=== PATIENT | female | born 1950 | race Two or more races ===

== ENCOUNTER → 2020-07-04 11:18 | Outpatient (BNVA) | payer MEDICARE, SELFPAY | PROVIDERS: PCP Internal Medicine; Referring Provider Internal Medicine; Visit Provider Nurse Practitioner Gerontology | DX: E11.3299 Type 2 diabetes mellitus with mild nonproliferative diabetic retinopathy without macular edema, unspecified eye (principal); E11.42 Type 2 diabetes mellitus with diabetic polyneuropathy; Z79.4 Long term (current) use of insulin; E78.5 Hyperlipidemia, unspecified | CPT/HCPCS: 99212 ==

== ENCOUNTER 2020-07-20 11:35 | Outpatient (REF) | payer MEDICARE, SELFPAY ==
--- NOTE | 2020-07-20 | US_ITS ---
EXAMINATION: US RETROPERITONEAL LIMITED (RENAL ONLY) CLINICAL INFORMATION: Hypertension. Hyperkalemia. COMPARISON: Renal ultrasound 04/06/2016 and 09/28/2015. KUB 09/14/2015 and 11/16/2013. CT abdomen and pelvis 07/06/2015. TECHNIQUE: Real-time imaging of the kidneys. FINDINGS: RIGHT KIDNEY: 9.7 x 4.8 x 4.3 cm (SAG x AP x TRV). The kidney is normal in size, contour, and echogenicity. Renal cortical thickness is normal. No calculi or focal parenchymal lesions. No hydronephrosis. LEFT KIDNEY: 10.2 x 4.6 x 3.8 cm (SAG x AP x TRV). The kidney is normal in size, contour, and echogenicity. Renal cortical thickness is normal. No calculi or focal parenchymal lesions. No hydronephrosis. US/US renal BI IMPRESSION: No significant renal abnormality.
== END 2020-07-20 11:36 | disposition home or self-care (01) ==
LOC: HO.US 11:35
PROVIDERS: Visit Provider Internal Medicine Nephrology
DX: E87.5 Hyperkalemia (principal); E11.65 Type 2 diabetes mellitus with hyperglycemia; E11.39 Type 2 diabetes mellitus with other diabetic ophthalmic complication; E78.5 Hyperlipidemia, unspecified; I10 Essential (primary) hypertension
CPT/HCPCS: 76775

== ENCOUNTER 2020-08-03 09:51 | Outpatient (REF) | payer MEDICARE, SELFPAY ==
[2020-08-03 11:53] LABS: Alanine Aminotransferase 19 U/L (0-31); Albumin Level 3.8 g/dL (3.5-5.0); Alkaline Phosphatase 63 U/L (39-117); Anion Gap 16 (12-20); Aspartate Amino Transferase 18 U/L (5-31); Bilirubin Total 0.4 mg/dL (0.0-1.0); Blood Urea Nitrogen 18 mg/dL (9-16); Calcium 9.1 mg/dL (8.4-10.2); Carbon Dioxide 24 mmol/L (22-29); Chloride 105 mmol/L (96-108); Cholesterol 184 mg/dL; Estimated Glomerular Filt Rate 60; Glucose Random 150 mg/dL (60-115); HDL Cholesterol 38 mg/dL; LDL Cholesterol Calculated 96 mg/dl; Potassium 4.9 mmol/l (3.3-5.1); Sodium 140 mmol/L (135-145); Total Protein 6.8 g/dL (6.5-8.0); Triglycerides 253 mg/dL
[2020-08-03 11:54] LABS: Estimated Average Glucose 169 mg/dL; Hemoglobin A1c % 7.5 %
[2020-08-03 12:17] LABS: Free T4 (Free Thyroxine) 0.98 ng/dL (0.71-1.85); Thyroid Stimulating Hormone 0.74 uIU/mL (0.32-4.0)
== END 2020-08-03 09:52 | disposition home or self-care (01) ==
LOC: HO.LAB 09:51
PROVIDERS: Nurse Practitioner Gerontology; PCP Internal Medicine; Visit Provider Internal Medicine
DX: E78.00 Pure hypercholesterolemia, unspecified (principal); E11.3299 Type 2 diabetes mellitus with mild nonproliferative diabetic retinopathy without macular edema, unspecified eye; E11.42 Type 2 diabetes mellitus with diabetic polyneuropathy; E78.5 Hyperlipidemia, unspecified; E03.9 Hypothyroidism, unspecified
CPT/HCPCS: 80053; 80061; 83036; 84439; 84443

== ENCOUNTER → 2020-10-04 09:43 | Outpatient (BNVA) | payer MEDICARE, SELFPAY | PROVIDERS: PCP Internal Medicine; Visit Provider Nurse Practitioner Gerontology | DX: E11.3299 Type 2 diabetes mellitus with mild nonproliferative diabetic retinopathy without macular edema, unspecified eye (principal); E11.42 Type 2 diabetes mellitus with diabetic polyneuropathy; E78.5 Hyperlipidemia, unspecified; Z79.4 Long term (current) use of insulin | CPT/HCPCS: Q3014 ==

== ENCOUNTER → 2020-11-09 12:36 | Outpatient (BNVA) | payer MEDICARE, SELFPAY | PROVIDERS: PCP Internal Medicine; Visit Provider Nurse Practitioner Gerontology | DX: Z13.89 Encounter for screening for other disorder (principal) | CPT/HCPCS: Q3014 ==

== ENCOUNTER → 2020-12-29 12:10 | Outpatient (BNVA) | payer MEDICARE, SELFPAY | PROVIDERS: PCP Internal Medicine; Visit Provider Nurse Practitioner Gerontology | DX: E11.65 Type 2 diabetes mellitus with hyperglycemia (principal); E11.42 Type 2 diabetes mellitus with diabetic polyneuropathy; Z79.4 Long term (current) use of insulin; E78.5 Hyperlipidemia, unspecified | CPT/HCPCS: 82947; 99212 ==

== ENCOUNTER → 2021-01-16 12:27 | Outpatient (BNVA) | payer MEDICARE, SELFPAY | PROVIDERS: PCP Internal Medicine; Visit Provider Nurse Practitioner Gerontology | DX: E11.65 Type 2 diabetes mellitus with hyperglycemia (principal); E11.42 Type 2 diabetes mellitus with diabetic polyneuropathy; Z79.4 Long term (current) use of insulin; E78.5 Hyperlipidemia, unspecified; E04.9 Nontoxic goiter, unspecified | CPT/HCPCS: 82947; 99212 ==

== ENCOUNTER 2021-02-10 08:03 | Outpatient (REF) | payer MEDICARE, SELFPAY ==
[2021-02-10 09:40] LABS: Free T4 (Free Thyroxine) 0.94 ng/dL (0.71-1.85); Thyroid Stimulating Hormone 0.92 uIU/mL (0.32-4.0)
[2021-02-13 17:56] LABS: Thyroglobulin Antibodies <1 IU/mL (< or = 1); Thyroid Peroxidase Antibodies <1 IU/mL (<9)
== END 2021-02-10 08:04 | disposition home or self-care (01) ==
LOC: HO.LAB 08:03
PROVIDERS: PCP Internal Medicine; Visit Provider Nurse Practitioner Gerontology
DX: E04.9 Nontoxic goiter, unspecified (principal)
CPT/HCPCS: 36415; 84439; 84443; 86376; 86800

== ENCOUNTER 2021-02-27 11:56 | Outpatient (REF) | payer MEDICARE, SELFPAY ==
--- NOTE | ~2021-02-27 | US_ITS ---
EXAMINATION: US THYROID CLINICAL INFORMATION: Goiter COMPARISON: None TECHNIQUE: Linear transducer grayscale and color Doppler examination with attention to the region of the thyroid. FINDINGS: SIZE: Measurements of the thyroid lobes and nodules are given in sagittal, anteroposterior and transverse dimensions respectively. Right Thyroid Lobe: 2.7 x 1.0 x 1.0 cm, volume 1.4 mL. Parenchyma: The gland echotexture is homogeneous. Thyroid vascularity is normal. Left Thyroid Lobe: 3.1 x 0.9 x 0.8 cm, volume 1.2 mL. Parenchyma: The gland echotexture is homogeneous. Thyroid vascularity is normal. Isthmus: 0.1 cm in maximum AP dimension. Estimated total number of nodules greater than or equal to 1 cm: 0. Body Joiner nodules are described as follows: 1. Location: Right mid pole. Size: 0.3 x 0.2 x 0.3 cm, volume 0.008 mL. Nodule characteristics: Composition: Cystic(0). ACR TI-RADS total points: 0 ACR TI-RADS category: 1 2. Location: Left mid pole. Size: 0.3 x 0.2 x 0.3 cm, volume 0.009 mL. Nodule characteristics: Composition: Cystic(0). ACR TI-RADS total points: 0 ACR TI-RADS category: 1 NODES: There are small bilateral level 3 cervical lymph nodes US/US thyroid IMPRESSION: Small thyroid gland. Small bilateral cystic thyroid nodules. Small bilateral level 3 cervical lymph nodes. ACR TI-RADS RECOMMENDATION REFERENCE: Ultrasound-guided fine-needle aspiration, followup ultrasound, no further follow up. * TR1 (0 point) and TR 2 (2 points): No FNA or follow up * TR3 (3 points): FNA if more than or equal to 2.5 cm in maximum dimension, followup ultrasound in 1, 3 and 5 years if 1.5 to 2.4 cm in maximum dimension. * TR4 (4-6 points): FNA if more than or equal to 1.5 cm in maximum dimension, followup ultrasound in 1, 2, 3 and 5 years if 1 to 1.4 cm in maximum dimension. * TR5 (more than or equal to 7 points): FNA if more than or equal to 1 cm in maximum dimension, followup ultrasound every year for 5 years if 0.5 to 0.9 cm in maximum dimension. * TR3, TR4 or TR5 nodules that are below the size threshold for follow up receive no follow up.
== END 2021-02-27 11:57 | disposition home or self-care (01) ==
LOC: HO.US 11:56
PROVIDERS: Visit Provider Nurse Practitioner Gerontology
DX: E04.9 Nontoxic goiter, unspecified (principal)
CPT/HCPCS: 76536

== ENCOUNTER 2021-03-10 13:23 | Outpatient (REF) | payer MEDICARE, SELFPAY ==
--- NOTE | ~2021-03-10 | MM_ITS ---
EXAMINATION: MM SCREENING DIGITAL BREAST TOMOSYNTHESIS, BILATERAL CLINICAL INFORMATION: Screening. Asymptomatic. Remote history breast reduction 1982. The lifetime risk of breast cancer based on the Tyrer-Cuzick Model is 3%. COMPARISON: Mammography: 12/13/2017, 12/04/2016, 11/01/2015 TECHNIQUE: Digital breast tomosynthesis is performed in both the craniocaudal and mediolateral oblique views along with computer-aided detection (CAD). Synthesized 2D images are generated from the tomosynthesis. Additional left CC view is provided. FINDINGS: There are scattered areas of fibroglandular density (ACR BI-RADS breast composition Category b). Parenchymal pattern is similar to prior studies. There is minor chronic scarring and numerous round and rim calcifications consistent with the remote reduction mammoplasty. There is no interval mass or architectural abnormality or abnormal calcifications. The axilla are unremarkable. MM/MM tomosynthesis screening BI IMPRESSION: No mammographic evidence of malignancy. ASSESSMENT: BI-RADS 2: Benign RECOMMENDATION: Routine annual mammography screening. This patient's information was entered into a reminder system with a target due date for their next mammogram.
== END 2021-03-10 13:24 | disposition home or self-care (01) ==
LOC: HO.MAMMO 13:23
PROVIDERS: Visit Provider Internal Medicine
DX: Z12.31 Encounter for screening mammogram for malignant neoplasm of breast (principal)
CPT/HCPCS: 77063; 77067

== ENCOUNTER → 2021-03-27 12:19 | Outpatient (BNVA) | payer MEDICARE, SELFPAY | PROVIDERS: PCP Internal Medicine; Visit Provider Nurse Practitioner Gerontology | DX: E11.65 Type 2 diabetes mellitus with hyperglycemia (principal); E11.42 Type 2 diabetes mellitus with diabetic polyneuropathy; R63.5 Abnormal weight gain; E78.5 Hyperlipidemia, unspecified; E03.9 Hypothyroidism, unspecified; E04.2 Nontoxic multinodular goiter; E53.8 Deficiency of other specified B group vitamins; Z88.6 Allergy status to analgesic agent; Z88.8 Allergy status to other drugs, medicaments and biological substances; Z79.4 Long term (current) use of insulin; Z79.899 Other long term (current) drug therapy | CPT/HCPCS: 82947; 83036; 99212 ==

== ENCOUNTER 2021-05-18 13:58 | Outpatient (REF) | payer MEDICARE, SELFPAY ==
[2021-05-18 14:49] LABS: Cholesterol 195 mg/dL; Estimated Average Glucose 151 mg/dL; Glucose Fasting 90 mg/dL (60-99); HDL Cholesterol 44 mg/dL; Hemoglobin A1c % 6.9 %; LDL Cholesterol Calculated 90 mg/dl; Triglycerides 308 mg/dL
== END 2021-05-18 13:59 | disposition home or self-care (01) ==
LOC: HO.LAB 13:58
PROVIDERS: PCP Internal Medicine; Visit Provider Nurse Practitioner Family
DX: E11.65 Type 2 diabetes mellitus with hyperglycemia (principal); E78.5 Hyperlipidemia, unspecified
CPT/HCPCS: 36415; 80061; 82947; 83036

== ENCOUNTER 2021-07-07 14:25 | Outpatient (REF) | payer MEDICARE, SELFPAY ==
--- NOTE | ~2021-07-07 | MM_ITS ---
EXAMINATION: BONE DENSITOMETRY CLINICAL INDICATION: Screening for osteoporosis. COMPARISON: Baseline BD dated 11/01/2015. TECHNIQUE: Using a [employer] DXA System (software version: 13.1) manufactured by [employer], dual-energy x-ray absorptiometry was performed of the lumbar spine and left hip. The images are of good technical quality. Summary results are attached. FINDINGS: AP SPINE L1-L4: Current: BMD 1.175 g/cm2, Z-score 1.9, T-score 0.0, normal, 3.8% increase from baseline (<5% change is not significant). Baseline: BMD 1.132 g/cm2. LEFT FEMUR, NECK: Current: BMD 1.025 g/cm2, Z-score 1.7, T-score -0.1, normal. Baseline: BMD 0.985 g/cm2. LEFT FEMUR, TOTAL: Current: BMD 1.043 g/cm2, Z-score 1.9, T-score 0.3, normal, 1.8% decrease from baseline (<5% change is not significant). Baseline: BMD 1.062 g/cm2. IDENTIFIED RISK FACTORS: Early menopause, hyperthyroid, hysterectomy, rheumatoid arthritis, secondary osteoporosis. HISTORY OF FRACTURE: None listed. MEDICATIONS: Calcium. MM/XR DEXA axial skeleton IMPRESSION: 1. DIAGNOSIS: Normal bone density based on the lowest T-score value of -0.1 in the femoral neck applying World Health Organization criteria. 2. 10-YEAR FRACTURE RISK PREDICTION, FRAX: According to the guidelines, FRAX calculation should only be performed on patients in the osteopenia bone density category. Therefore, FRAX was not performed on this patient. 3. Treatment Recommendations: NOF guidelines recommend consideration for treatment in postmenopausal women and men age 50 and older presenting with the following: -A hip or vertebral (clinical or morphometric) fracture. -T-score less than or equal to -2.5 at the femoral neck or spine after appropriate evaluation to exclude secondary causes. -Low bone mass at the hip or spine and a 10-year fracture probability by FRAX of greater than or equal to 3% for hip fracture or greater than or equal to 20% for major osteoporotic fracture based on the [place] adapted WHO algorithm. 4. Other Recommendations: All treatment decisions require clinical judgment and consideration of individual patient factors, including patient preferences, comorbidities, previous drug use, risk factors not captured in the FRAX model (e.g. frailty, falls, vitamin D deficiency, increased bone turnover, interval significant decline in bone density) and possible under or overestimation of fracture risk by FRAX. FUTURE SCAN RECOMMENDATION: People with diagnosed cases of osteoporosis or at high risk for fracture should have regular bone mineral density tests. For patients eligible for Medicare, routine testing is allowed once every 2 years. The testing frequency can be increased to one year for patients who have rapidly progressing disease, those who are receiving or discontinuing medical therapy to restore bone mass, or have additional risk factors.
== END 2021-07-07 14:26 | disposition home or self-care (01) ==
LOC: HO.MAMMO 14:25
PROVIDERS: PCP Internal Medicine; Visit Provider Nurse Practitioner Family
DX: Z13.820 Encounter for screening for osteoporosis (principal); Z78.0 Asymptomatic menopausal state
CPT/HCPCS: 77080

== ENCOUNTER → 2021-08-14 12:16 | Outpatient (BNVA) | payer MEDICARE, SELFPAY | PROVIDERS: PCP Internal Medicine; Visit Provider Nurse Practitioner Gerontology | DX: E11.42 Type 2 diabetes mellitus with diabetic polyneuropathy (principal); E78.5 Hyperlipidemia, unspecified; E04.2 Nontoxic multinodular goiter; Z79.4 Long term (current) use of insulin | CPT/HCPCS: 82947; 83036; 99212 ==

== ENCOUNTER 2021-10-23 08:48 | Outpatient (REF) | payer MEDICARE, SELFPAY ==
[2021-10-23 09:27] LABS: MANUAL DIFF FLAG NO
[2021-10-23 09:52] LABS: Basophils Absolute Auto 0.1 X10*3/uL (0.0-0.2); Basophils Percent Auto 0.6 % (0-2); Eosinophils Absolute Auto 0.3 X10*3/uL (0.0-0.4); Eosinophils Percent Auto 3.2 % (0-4); Hematocrit 42.1 % (37.0-47.0); Hemoglobin 13.8 g/dl (12.0-16.0); Imm Gran Abs Auto 0.05 X10*3/uL (0.00-0.03); Imm Gran Pct Auto 0.5 % (0.0-0.4); Lymphocytes Absolute Auto 2.3 X10*3/uL (1.2-4.9); Lymphocytes Percent Auto 22.4 % (20-40); Mean Corpuscular HGB Conc 32.8 g/dl (31.0-35.0); Mean Corpuscular Hemoglobin 26.6 pg (27.0-33.0); Mean Corpuscular Volume 81.1 fL (80.0-98.0); Mean Platelet Volume 9.3 fL (9.4-12.3); Monocytes Absolute Auto 0.6 X10*3/uL (0.1-1.2); Monocytes Percent Auto 6.2 % (2-11); Neutrophils Absolute Auto 6.9 x10*3/uL (2.0-8.3); Neutrophils Percent Auto 67.1 % (45-73); Platelet Count 388 X10*3/uL (160-400); Red Blood Count 5.19 X10*6/uL (4.20-5.50); Red Cell Distribution Width 14.8 % (11.0-16.0); White Blood Count 10.3 X10*3/uL (4.8-10.8)
[2021-10-23 10:04] LABS: Estimated Average Glucose 143 mg/dL; Hemoglobin A1c % 6.6 %
[2021-10-23 10:14] LABS: Alanine Aminotransferase 28 U/L (0-31); Albumin Level 4.4 g/dL (3.5-5.0); Alkaline Phosphatase 75 U/L (39-117); Anion Gap 16 (12-20); Aspartate Amino Transferase 38 U/L (5-31); Bilirubin Total 0.3 mg/dL (0.0-1.0); Blood Urea Nitrogen 11 mg/dL (9-16); Calcium 10.2 mg/dL (8.4-10.2); Carbon Dioxide 25 mmol/L (22-29); Chloride 104 mmol/L (96-108); Cholesterol 209 mg/dL; Estimated Glomerular Filt Rate 55; Glucose Fasting 92 mg/dL (60-99); HDL Cholesterol 46 mg/dL; LDL Cholesterol Calculated 122 mg/dl; Potassium 4.7 mmol/L (3.3-5.1); Sodium 140 mmol/L (135-145); Total Protein 8.1 g/dL (6.5-8.0); Triglycerides 206 mg/dL
[2021-10-23 10:18] LABS: Anion Gap 13 (12-20); Blood Urea Nitrogen 11 mg/dL (9-16); Calcium 10.3 mg/dL (8.4-10.2); Carbon Dioxide 27 mmol/L (22-29); Chloride 104 mmol/L (96-108); Estimated Glomerular Filt Rate 57; Iron 54 mcg/dL (30-160); Potassium 5.2 mmol/L (3.3-5.1); Sodium 139 mmol/L (135-145)
[2021-10-23 10:34] LABS: Percent Iron Saturation 17 % (15-50); Total Iron Binding Capacity 322 mcg/dL (228-428); Unsaturated Iron Binding 268 ug/dL
[2021-10-23 11:08] LABS: Creatinine Urine 123.59 mg/dL; Microalbum/Creatinine Ratio Ur 12.1 ug/mg cr
[2021-10-24 08:06] LABS: LDL Cholesterol Direct 139 mg/dL (<100)
== END 2021-10-23 08:49 | disposition home or self-care (01) ==
LOC: HO.LAB 08:48
PROVIDERS: Absent Provider Nurse Practitioner Gerontology; PCP Internal Medicine; Visit Provider Internal Medicine Nephrology
DX: E11.42 Type 2 diabetes mellitus with diabetic polyneuropathy (principal); E87.5 Hyperkalemia; Z79.4 Long term (current) use of insulin
CPT/HCPCS: 36415; 80051; 80053; 80061; 82043; 82310; 82565; 83036; 83540; 83721; 84520; 85025

== ENCOUNTER → 2021-11-10 11:49 | Outpatient (BNVA) | payer MEDICARE, SELFPAY | PROVIDERS: PCP Internal Medicine; Visit Provider Registered Nurse Diabetes Educator | DX: E11.42 Type 2 diabetes mellitus with diabetic polyneuropathy (principal); Z45.89 Encounter for adjustment and management of other implanted devices | CPT/HCPCS: 95250 ==

== ENCOUNTER 2021-11-17 08:56 | Outpatient (REF) | payer MEDICARE, SELFPAY ==
[2021-11-17 10:04] LABS: Estimated Average Glucose 140 mg/dL; Hemoglobin A1c % 6.5 %
[2021-11-17 10:59] LABS: Alanine Aminotransferase 22 U/L (0-31); Albumin Level 4.3 g/dL (3.5-5.0); Alkaline Phosphatase 71 U/L (39-117); Anion Gap 16 (12-20); Aspartate Amino Transferase 29 U/L (5-31); Bilirubin Total 0.4 mg/dL (0.0-1.0); Blood Urea Nitrogen 15 mg/dL (9-16); Calcium 10.3 mg/dL (8.4-10.2); Carbon Dioxide 22 mmol/L (22-29); Chloride 106 mmol/L (96-108); Cholesterol 208 mg/dL; Estimated Glomerular Filt Rate 53; Glucose Fasting 118 mg/dL (60-99); HDL Cholesterol 45 mg/dL; LDL Cholesterol Calculated 123 mg/dl; Potassium 5.4 mmol/L (3.3-5.1); Sodium 139 mmol/L (135-145); Total Protein 7.8 g/dL (6.5-8.0); Triglycerides 203 mg/dL
[2021-11-17 14:43] LABS: Creatinine Urine 109.45 mg/dL; Microalbum/Creatinine Ratio Ur 8.2 ug/mg cr
[2021-11-18 19:16] LABS: LDL Cholesterol Direct 139 mg/dL (<100)
== END 2021-11-17 08:57 | disposition home or self-care (01) ==
LOC: HO.LAB 08:56
PROVIDERS: PCP Internal Medicine; Visit Provider Nurse Practitioner Gerontology
DX: E11.42 Type 2 diabetes mellitus with diabetic polyneuropathy (principal); Z79.4 Long term (current) use of insulin
CPT/HCPCS: 36415; 80053; 80061; 82043; 83036; 83721

== ENCOUNTER → 2021-11-24 12:20 | Outpatient (BNVA) | payer MEDICARE, SELFPAY | PROVIDERS: PCP Internal Medicine; Visit Provider Nurse Practitioner Gerontology | DX: E11.42 Type 2 diabetes mellitus with diabetic polyneuropathy (principal); E11.649 Type 2 diabetes mellitus with hypoglycemia without coma; E78.5 Hyperlipidemia, unspecified; Z79.4 Long term (current) use of insulin | CPT/HCPCS: 82947; 83036; 99212 ==

== ENCOUNTER → 2022-02-27 12:50 | Outpatient (BNVA) | payer MEDICARE, SELFPAY | PROVIDERS: PCP Internal Medicine; Visit Provider Nurse Practitioner Gerontology | DX: E11.65 Type 2 diabetes mellitus with hyperglycemia (principal); E11.649 Type 2 diabetes mellitus with hypoglycemia without coma; E11.42 Type 2 diabetes mellitus with diabetic polyneuropathy; E78.5 Hyperlipidemia, unspecified; Z79.4 Long term (current) use of insulin; Z79.899 Other long term (current) drug therapy | CPT/HCPCS: 82947; 83036; 99212 ==

== ENCOUNTER 2022-05-22 09:26 | Outpatient (REF) | payer OTHER, SELFPAY ==
[2022-05-22 10:43] LABS: Alanine Aminotransferase 18 U/L (0-31); Albumin Level 4.3 g/dL (3.5-5.0); Alkaline Phosphatase 78 U/L (39-117); Anion Gap 19 (12-20); Aspartate Amino Transferase 23 U/L (5-31); Bilirubin Total 0.4 mg/dL (0.0-1.0); Blood Urea Nitrogen 16 mg/dL (9-16); Calcium 9.8 mg/dL (8.4-10.2); Carbon Dioxide 20 mmol/L (22-29); Chloride 104 mmol/L (96-108); Estimated Glomerular Filt Rate 55; Glucose Random 101 mg/dL (60-115); Sodium 138 mmol/L (135-145); Total Protein 7.7 g/dL (6.5-8.0)
[2022-05-23 11:46] LABS: Calcium (PTHI) 9.7 mg/dL (8.6-10.4); PTHI 68 pg/mL (16-77)
[2022-05-24 14:11] LABS: Calcium, Ionized 5.1 mg/dL (4.8-5.6)
== END 2022-05-22 09:27 | disposition home or self-care (01) ==
LOC: HO.LAB 09:26
PROVIDERS: PCP Internal Medicine; Visit Provider Internal Medicine
DX: E11.65 Type 2 diabetes mellitus with hyperglycemia (principal)
CPT/HCPCS: 36415; 80053; 82330; 83970

== ENCOUNTER → 2022-05-23 14:11 | Outpatient (BNVA) | payer OTHER, SELFPAY | PROVIDERS: PCP Internal Medicine; Visit Provider Internal Medicine Endocrinology, Diabetes & Metabolism | DX: E11.65 Type 2 diabetes mellitus with hyperglycemia (principal); Z79.4 Long term (current) use of insulin | CPT/HCPCS: 82947; 83036; 99212 ==

== ENCOUNTER 2022-05-29 12:46 | Outpatient (REF) | payer OTHER, SELFPAY ==
[2022-05-29 13:06] LABS: MANUAL DIFF FLAG NO
[2022-05-29 13:38] LABS: Basophils Absolute Auto 0.1 X10*3/uL (0.0-0.2); Basophils Percent Auto 0.7 % (0-2); Eosinophils Absolute Auto 0.3 X10*3/uL (0.0-0.4); Eosinophils Percent Auto 2.2 % (0-4); Hematocrit 39.9 % (37.0-47.0); Imm Gran Abs Auto 0.03 X10*3/uL (0.00-0.03); Imm Gran Pct Auto 0.3 % (0.0-0.4); Lymphocytes Absolute Auto 3.3 X10*3/uL (1.2-4.9); Lymphocytes Percent Auto 28.1 % (20-40); Mean Corpuscular HGB Conc 32.6 g/dl (31.0-35.0); Mean Corpuscular Hemoglobin 25.6 pg (27.0-33.0); Mean Corpuscular Volume 78.5 fL (80.0-98.0); Mean Platelet Volume 9.4 fL (9.4-12.3); Monocytes Absolute Auto 0.8 X10*3/uL (0.1-1.2); Monocytes Percent Auto 7.1 % (2-11); Neutrophils Absolute Auto 7.3 x10*3/uL (2.0-8.3); Neutrophils Percent Auto 61.6 % (45-73); Platelet Count 421 X10*3/uL (160-400); Red Blood Count 5.08 X10*6/uL (4.20-5.50); Red Cell Distribution Width 16.1 % (11.0-16.0); White Blood Count 11.9 X10*3/uL (4.8-10.8)
[2022-05-29 14:14] LABS: Albumin Level 4.2 g/dL (3.5-5.0); Anion Gap 19 (12-20); Blood Urea Nitrogen 16 mg/dL (9-16); Calcium 10.2 mg/dL (8.4-10.2); Carbon Dioxide 23 mmol/L (22-29); Chloride 103 mmol/L (96-108); Estimated Glomerular Filt Rate 55; Magnesium 1.6 mg/dL (1.6-2.6); Phosphorus 3.7 mg/dL (2.7-4.5); Potassium 4.7 mmol/L (3.3-5.1); Sodium 140 mmol/L (135-145)
[2022-05-29 14:23] LABS: Vitamin D 25-OH Total 27.9 ng/mL (>30)
[2022-05-29 14:27] LABS: Appearance Urine Clear; Color Urine Yellow; Glucose Urine UA Negative (Negative); Leukocyte Esterase Urine Small (1+) (Negative); Nitrite Urine Negative (Negative); PH 5.5 (5.0-9.0); Specific Gravity - Urine 1.015 (1.005-1.025); UMIC TRIGGER UA YES; Urine Blood Trace (Negative); Urine Ketones Negative (Negative); Urine Protein Negative (Neg-Trace)
[2022-05-29 14:41] LABS: Bacteria Urine None Seen (None Seen); Hyaline Casts Urine 0-2 /LPF (0-2); RBC Urine 0-2 /HPF (0-2); Squamous Epithelial Cell Urine 0-2 /HPF (0-2); WBC Urine 0-5 /HPF (0-5)
[2022-05-29 15:33] LABS: Creatinine Urine 107.23 mg/dL; Microalbum/Creatinine Ratio Ur 8.3 ug/mg cr; Total Protein Urine Random < 7 mg/dL (<12)
[2022-05-30 12:41] LABS: Calcium (PTHI) 10.3 mg/dL (8.6-10.4); PTHI 37 pg/mL (16-77)
== END 2022-05-29 12:47 | disposition home or self-care (01) ==
LOC: HO.LAB 12:46
PROVIDERS: PCP Internal Medicine; Visit Provider Internal Medicine Nephrology
DX: N18.31 Chronic kidney disease, stage 3a (principal)
CPT/HCPCS: 36415; 80051; 81001; 82040; 82043; 82306; 82310; 82565; 83735; 83970; 84100; 84156; 84520; 85025; 87086

== ENCOUNTER 2022-10-05 08:51 | Outpatient (REF) | payer OTHER, SELFPAY ==
[2022-10-05 09:23] LABS: MANUAL DIFF FLAG NO
[2022-10-05 10:17] LABS: Basophils Absolute Auto 0.1 X10*3/uL (0.0-0.2); Basophils Percent Auto 0.9 % (0-2); Eosinophils Absolute Auto 0.2 X10*3/uL (0.0-0.4); Eosinophils Percent Auto 2.4 % (0-4); Hematocrit 38.8 % (37.0-47.0); Hemoglobin 13.1 g/dl (12.0-16.0); Imm Gran Abs Auto 0.03 X10*3/uL (0.00-0.03); Imm Gran Pct Auto 0.3 % (0.0-0.4); Lymphocytes Absolute Auto 2.4 X10*3/uL (1.2-4.9); Lymphocytes Percent Auto 26.1 % (20-40); Mean Corpuscular HGB Conc 33.8 g/dl (31.0-35.0); Mean Corpuscular Hemoglobin 26.7 pg (27.0-33.0); Monocytes Absolute Auto 0.7 X10*3/uL (0.1-1.2); Neutrophils Absolute Auto 5.9 x10*3/uL (2.0-8.3); Neutrophils Percent Auto 63.3 % (45-73); Platelet Count 462 X10*3/uL (160-400); Red Blood Count 4.91 X10*6/uL (4.20-5.50); Red Cell Distribution Width 15.7 % (11.0-16.0); White Blood Count 9.3 X10*3/uL (4.8-10.8)
[2022-10-05 11:32] LABS: Estimated Average Glucose 134 mg/dL; Hemoglobin A1C 151.7843 umol/L; Hemoglobin A1c % 6.3 %
[2022-10-05 11:32] LABS: Creatinine Urine 87.22 mg/dL
[2022-10-05 11:37] LABS: Alanine Aminotransferase 10 U/L (0-31); Albumin Level 4.1 g/dL (3.5-5.0); Alkaline Phosphatase 67 U/L (39-117); Anion Gap 17 (12-20); Aspartate Amino Transferase 16 U/L (5-31); Bilirubin Total 0.4 mg/dL (0.0-1.0); Blood Urea Nitrogen 14 mg/dL (9-16); Calcium 10.2 mg/dL (8.4-10.2); Carbon Dioxide 23 mmol/L (22-29); Chloride 106 mmol/L (96-108); Cholesterol 191 mg/dL; Estimated Glomerular Filt Rate 59; Glucose Random 99 mg/dL (60-115); HDL Cholesterol 40 mg/dL; LDL Cholesterol Calculated 123 mg/dl; Potassium 5.1 mmol/L (3.3-5.1); Sodium 141 mmol/L (135-145); Total Protein 7.4 g/dL (6.5-8.0); Triglycerides 142 mg/dL
[2022-10-05 12:07] LABS: Folate 17.1 ng/mL (> or = 4.0); Free T4 (Free Thyroxine) 1.36 ng/dL (0.71-1.85); Thyroid Stimulating Hormone 0.39 uIU/mL (0.32-4.0); Vitamin B12 651 pg/mL (200-900); Vitamin D 25-OH Total 20.8 ng/mL (>30)
== END 2022-10-05 08:52 | disposition home or self-care (01) ==
LOC: HO.LAB 08:51
PROVIDERS: PCP Internal Medicine; Visit Provider Internal Medicine
DX: E04.2 Nontoxic multinodular goiter (principal); E11.65 Type 2 diabetes mellitus with hyperglycemia; E11.42 Type 2 diabetes mellitus with diabetic polyneuropathy; E78.00 Pure hypercholesterolemia, unspecified; E78.5 Hyperlipidemia, unspecified; Z79.4 Long term (current) use of insulin
CPT/HCPCS: 36415; 80053; 80061; 82043; 82306; 82607; 82746; 83036; 84439; 84443; 85025

== ENCOUNTER 2022-12-28 08:59 | Outpatient (REF) | payer OTHER, SELFPAY ==
[2022-12-28 10:16] LABS: Estimated Average Glucose 128 mg/dL; Hemoglobin A1c % 6.1 %
[2022-12-28 10:45] LABS: Creatinine Urine 118.41 mg/dL
[2022-12-28 11:09] LABS: Alanine Aminotransferase 11 U/L (0-31); Albumin Level 4.5 g/dL (3.5-5.0); Alkaline Phosphatase 56 U/L (39-117); Anion Gap 17 (12-20); Aspartate Amino Transferase 16 U/L (5-31); Bilirubin Total 0.5 mg/dL (0.0-1.0); Blood Urea Nitrogen 14 mg/dL (9-16); Calcium 10.8 mg/dL (8.4-10.2); Carbon Dioxide 22 mmol/L (22-29); Chloride 106 mmol/L (96-108); Cholesterol 198 mg/dL; Estimated Glomerular Filt Rate 58; Glucose Random 86 mg/dL (60-115); HDL Cholesterol 45 mg/dL; LDL Cholesterol Calculated 126 mg/dl; Potassium 5.8 mmol/L (3.3-5.1); Sodium 139 mmol/L (135-145); Total Protein 7.7 g/dL (6.5-8.0); Triglycerides 139 mg/dL
[2022-12-28 11:31] LABS: Free T4 (Free Thyroxine) 1.37 ng/dL (0.71-1.85); Thyroid Stimulating Hormone 0.17 uIU/mL (0.32-4.0); Vitamin D 25-OH Total 62.9 ng/mL (>30)
== END 2022-12-28 09:00 | disposition home or self-care (01) ==
LOC: HO.LAB 08:59
PROVIDERS: PCP Internal Medicine; Visit Provider Internal Medicine
DX: E11.65 Type 2 diabetes mellitus with hyperglycemia (principal); E78.5 Hyperlipidemia, unspecified; E78.00 Pure hypercholesterolemia, unspecified; E11.42 Type 2 diabetes mellitus with diabetic polyneuropathy; Z79.4 Long term (current) use of insulin; E55.9 Vitamin D deficiency, unspecified
CPT/HCPCS: 36415; 80053; 80061; 82306; 83036; 84439; 84443

== ENCOUNTER 2023-03-06 08:56 | Outpatient (REF) | payer OTHER, SELFPAY ==
[2023-03-06 10:39] LABS: Alanine Aminotransferase 11 U/L (0-31); Alkaline Phosphatase 47 U/L (39-117); Anion Gap 18 (12-20); Aspartate Amino Transferase 15 U/L (5-31); Bilirubin Total 0.4 mg/dL (0.0-1.0); Blood Urea Nitrogen 18 mg/dL (9-16); Calcium 10.5 mg/dL (8.4-10.2); Carbon Dioxide 20 mmol/L (22-29); Chloride 107 mmol/L (96-108); Estimated Glomerular Filt Rate > 60; Glucose Random 84 mg/dL (60-115); Potassium 4.8 mmol/L (3.3-5.1); Sodium 140 mmol/L (135-145); Total Protein 7.3 g/dL (6.5-8.0)
[2023-03-06 10:54] LABS: Free T4 (Free Thyroxine) 1.12 ng/dL (0.71-1.85); Thyroid Stimulating Hormone 0.68 uIU/mL (0.32-4.0)
== END 2023-03-06 08:57 | disposition home or self-care (01) ==
LOC: HO.LAB 08:56
PROVIDERS: PCP Internal Medicine; Visit Provider Internal Medicine
DX: E03.9 Hypothyroidism, unspecified (principal)
CPT/HCPCS: 36415; 80053; 84439; 84443

== ENCOUNTER 2023-03-13 13:09 | Outpatient (AMB) | payer OTHER, SELFPAY ==
[2023-03-13 13:11] VITALS: BP 110/58; PULSE 72; O2SAT 99; BMI 17.1
--- NOTE | 2023-03-13 13:11 | MHC.PC.OV ---
Vital Signs 03/13/23 13:11 Height 5 ft 1.5 in Weight 92 lb BMI 17.1 BP 110/58 L Blood Pressure Location Lt brachial Position Sitting Pulse 72 Pulse Source Pulse Oximeter Pulse Oximetry (%) 99 Oxygen Delivery Method Room Air Intake Visit Reasons: weight loss, DM , Cholesterol Allergies atorvastatin [Lipitor] Allergy (Unknown, Verified 03/13/23 13:11) myalgia rosuvastatin [From Crestor] Allergy (Unknown, Verified 03/13/23 13:11) Myalgia acetaminophen [Tylenol] Adverse Reaction (Unknown, Verified 03/13/23 13:11) Anaphylaxis Tobacco use date assessed: 10/08/22 Fall risk assessment: No Falls in past year Last assessed Fall Risk: 03/13/23 Dental Screening Dental Screen Date: 03/13/23 Did you have a dental visit in the last 12 months?: Yes Did you have a dental problem in the last 6 months where you did not have access to dental care?: No Was dental information given to patient?: Patient has dentist HPI weight loss, DM , Cholesterol HPI Details 72-year-old female with diabetes mellitus controlled moderate depressive disorder asthma hypercholesterolemia hypothyroidism coming in for follow-up. Last seen in October 2022. Cologuard test is up-to-date refused mammogram patient is here for follow-up. Patient has lost a tremendous amount of weight , no apetitte, no n no v, no fevers, , no cough , no sob, , occ chest pain,,no diarrhea, no constipaiton- did not see for 5 months noted 20 lb weight loss PFSH Medical History Anxiety and depression Asthma B12 deficiency Carpal tunnel syndrome of right wrist Chondrocalcinosis Degenerative disc disease, cervical Hyperlipidemia LDL goal <100 Hypoglycemia unawareness associated with type 2 diabetes mellitus Hypothyroid Multinodular goiter Osteoarthritis Renal stones Screening for osteoporosis Serum potassium elevated Type 2 diabetes mellitus with diabetic polyneuropathy Surgical History History of cataract surgery Hx of bilateral breast reduction surgery Hx of lithotripsy Hx of vaginal hysterectomy Hx of wisdom tooth extraction Family History Father Heart disease Hypertension Myocardial infarction CVD (cardiovascular disease) Mother Hypertension Type II diabetes mellitus Daughter No problems noted. Sister In good health Sister In good health Brother No problems noted. Brother No problems noted. Brother No problems noted. Social History Household Members: None Housing: Apartment Alcohol intake: never Patient Tobacco Use Status: Never used Tobacco e-Cigarette/Vaping Use: Never Used Second Hand Smoke Exposure: No Current occupational status: retired Cognitive needs: No Hearing needs: No Vision needs: Yes Questionnaire PHQ-9 Over the last 2 weeks, how often have you been bothered by any of the following problems? 1. Little interest or pleasure in doing things: more than half the days 2. Feeling down, depressed, or hopeless: several days 3. Trouble falling or staying asleep, or sleeping too much: nearly every day 4. Feeling tired or having little energy: more than half the days 5. Poor appetite or overeating: not at all 6. Feeling bad about yourself - or that you are a failure or have let yourself or your family down: not at all 7. Trouble concentrating on things, such as reading the newspaper or watching television: nearly every day 8. Moving or speaking so slowly that other people could have noticed. Or the opposite - being so fidgety or restless that you have been moving around a lot more than usual: not at all 9. Thoughts that you would be better off or of hurting yourself in some way: not at all Total score: 11 Depression Screening Interpretation: Positive Source: Developed by Drs. Matheus Cox, Linus Gant and colleagues, with an educational roxana from [employer]. Thrive Questionnaire Date Thrive assessed: 10/08/22 AUDIT C Alcohol Use Questionnaire (AUDIT-C) 1. How often do you have a drink containing alcohol?: Never 2. How many drinks containing alcohol do you have on a typical day when you are drinking?: 1 or 2 3. How often do you have six or more drinks on one occasion?: Never Total Score: 0 DENISHA-7 AMB Questionnaire DENISHA-7 Date DENISHA - 7 assessed: 10/08/22 Source: Developed by Drs. Matheus Cox, Linus Gant and colleagues, with an educational roxana from [employer]. Physical exam (Primary Care) Vital Signs: Last Vital Signs Pulse 72 03/13/23 13:11 BP 110/58 L 03/13/23 13:11 Pulse Ox 99 03/13/23 13:11 Oxygen Delivery Method Room Air 03/13/23 13:11 Care Plan Goal for BP management: Stools guaiac negative BMI result Body Mass Index 17.1 Tobacco/Smoking Status: Tobacco use Status Tobacco use date assessed 10/08/22 03/13/23 13:12 Patient Tobacco Use Status Never used Tobacco 03/13/23 13:12 e-Cigarette/Vaping Use Never Used 03/13/23 13:12 PHQ-9: PHQ-9 Score PHQ-9: Total score 11 03/13/23 13:27 Depression Screening Interpretation: Positive Thrive Assessment: Date of Thrive Assessment Date Thrive assessed 10/08/22 03/13/23 13:12 Const General: alert; No acute distress Eyes Conjunctivae: conjunctivae normal Resp Auscultation: clear to auscultation bilaterally Cardio Rate: regular rate Rhythm: regular rhythm GI Inspection: Yes normal to inspection Extrem General: Yes normal to inspection and No edema Results AMB Hemoglobin A1c AMB Hemoglobin A1c 5.3 % Last Edit by Jia Benton CMA on 03/13/23 13:27 Results Reviewed Results Reviewed: Laboratory Last Values Hgb A1c (Clinic) 5.3 % (4.0-6.0) 03/13/23 13:13 Assessment and Plan Assessment & Plan (1) Type 2 diabetes mellitus with hyperglycemia: Comment: Dr. Dick Code(s): E11.65 - Type 2 diabetes mellitus with hyperglycemia Plan: Decrease the amount of carbohydrate intake, pasta, bread, rice and potatoes are all sugar and that is aside from all the sweet stuff, remember that fruits are good but they are Sweet also. Blood sugars controlled patient is losing weight. With her losing the weight the A1cs good will stop Trulicity (2) Moderate depressive disorder: Comment: Today's PHQ suggestive of moderate depression. Continue current regimen by PCP. Reinforced coping strategies and social support. Seek medical attention for any suicidal and/or homicidal ideations. [facility] Code(s): F32.1 - Major depressive disorder, single episode, moderate Plan: Patient is on citalopram will continue with this presently (3) Asthma: Code(s): J45.909 - Unspecified asthma, uncomplicated Plan: Continue with inhaler as needed (4) Hyperlipidemia LDL goal <100: Comment: Statin intolerant Code(s): E78.5 - Hyperlipidemia, unspecified Plan: Avoid fried foods, chicken skin, eggs, butter margarine, pastries and meat. Be it pork or beef they have a lot of cholesterol LDL goal of less than 100 and triglyceride of less than 150 (5) Hypothyroid: Code(s): E03.9 - Hypothyroidism, unspecified Qualifiers: Hypothyroidism type: acquired Qualified Code(s): E03.9 - Hypothyroidism, unspecified Plan: Continue with thyroid medication blood work in March reveals normal results continue with present does (6) Weight loss: Code(s): R63.4 - Abnormal weight loss Plan: Will do workup with hypercalcemia parathyroid testing, with the history of microcytosis will request for another blood count, chest x-ray requested. Orders: Orders Calcium Today R63.4 - Abnormal weight loss Calcium, Ionized Today R63.4 - Abnormal weight loss PTHI Today R63.4 - Abnormal weight loss XR chest 2V Today R63.4 - Abnormal weight loss Vitamin B12 and Folate Today R63.4 - Abnormal weight loss Ferritin Today R63.4 - Abnormal weight loss IRON PROFILE Today R63.4 - Abnormal weight loss Complete Blood Count Auto Diff Today R63.4 - Abnormal weight loss Reticulocyte Count Today R63.4 - Abnormal weight loss AMB Hemoglobin A1c Today Z13.9 - Encounter for screening, unspecified Medications: Discontinued dulaglutide (Trulicity) Discontinued Reason: Doctor's Order 3 mg (0.5 mL) subcut QWEEK 28 days 2 mL 6RF Coding Level of Care Code Est Pt Level 4 (75737) Diagnoses Type 2 diabetes mellitus with hyperglycemia E11.65 Moderate depressive disorder F32.1 Asthma J45.909 Hyperlipidemia LDL goal <100 E78.5 Hypothyroid E03.9 Hypothyroidism type: acquired Weight loss R63.4 Additional Codes PHQ-9 - 97766 - PHQ-9 Billing: Y ([id number])
== END 2023-03-13 13:58 | disposition home or self-care (01) ==
PROVIDERS: Visit Provider Internal Medicine
DX: E11.65 Type 2 diabetes mellitus with hyperglycemia (principal); F32.1 Major depressive disorder, single episode, moderate; J45.909 Unspecified asthma, uncomplicated; E03.9 Hypothyroidism, unspecified; E78.5 Hyperlipidemia, unspecified; R63.4 Abnormal weight loss
CPT/HCPCS: 83036; 96127; 99214

== ENCOUNTER 2023-03-19 07:49 | Emergency (ER) | payer OTHER, SELFPAY ==
--- NOTE | ~2023-03-19 | CT_ITS ---
EXAMINATION: NONCONTRAST HEAD CT NONCONTRAST CERVICAL SPINE CT INDICATION INFORMATION: Headache COMPARISON: 09/07/2015 TECHNIQUE: Separate noncontrast CT examinations of the head and cervical spine were performed. Coronal and sagittal images were created for each examination at the technologist workstation. This CT examination was performed using dose optimization techniques as appropriate, variously including the following: *Automated exposure control *Adjustment of mA and/or kV according to patient size (this includes techniques or standardized protocols for targeted exams where dose is matched to indication/reason for exam; i.e. extremities or head) *Use of iterative reconstruction technique DLP: 852 mGy-cm FINDINGS: Head: There is no evidence of acute intracranial hemorrhage or territorial infarction. No abnormal mass effect or midline shift is seen. Collins to white matter differentiation is well preserved. No extra-axial fluid collections are identified. No hydrocephalus. Proportional prominence of the ventricles and sulcal spaces is consistent with mild volume loss. Patchy periventricular and deep white matter hypoattenuation is consistent with mild small vessel ischemic changes. No acute osseous or soft tissue abnormality. The mastoid air cells and visualized portions of the paranasal sinuses are well aerated. Cervical spine: There is anatomic alignment of the vertebral bodies and posterior elements. The atlantoaxial and atlantooccipital articulations are intact. Vertebral body heights are maintained. There is multilevel intervertebral disc space narrowing with endplate osteophyte formation and facet arthropathy. Calcific pannus at the dens. No evidence of acute fracture. No prevertebral soft tissue swelling. Visualized portions of the lung apices are unremarkable. The thyroid gland is unremarkable. CT/CT cervical spine wo IV con IMPRESSION: 1. No acute intracranial finding. 2. No acute fracture or malalignment of the cervical spine. Moderate degenerative changes.
[2023-03-19 08:12] VITALS: BP 123/76; PULSE 88; RESP 16; TEMP 36.6; O2SAT 99; BMI 16.8
--- NOTE | 2023-03-19 10:03 | PC.NURSE ---
off at ct scan at this time
[2023-03-19] MEDS: predniSONE 20 MG TABLET 60 MG PO (10:12)
[2023-03-19] MEDS: Cyclobenzaprine HCl 10 MG TABLET PO (10:12)
--- NOTE | 2023-03-19 10:37 | ED_ITS ---
HPI - General Adult General Chief complaint: General Medical Stated complaint: pain in head Time Seen by Provider: 03/19/23 09:30 Source: patient Mode of arrival: ambulatory Limitations: no limitations History of Present Illness HPI narrative: 72-year-old female with history of diabetes hypertension presents to the ED for posterior neck pain and headache for the past 3 days. Patient states she woke up with posterior neck pain. Patient denies any fever, chills, photophobia, recent trauma, or rash. Patient denies any nausea or vomiting. Patient denies any leg pain. Patient denies any headache Related Data Home Medications Medication Instructions Recorded Confirmed clonazepam 0.5 mg tablet 0.5 mg PO DAILY PRN 07/04/20 03/07/22 hydroxyzine HCl 10 mg tablet 10 mg PO BID 07/04/20 03/07/22 magnesium 250 mg tablet 250 mg PO DAILY 07/04/20 03/07/22 Previous Rx's Medication Instructions Recorded Fish Oil Concentrate 1,000 mg 1,000 mg PO DAILY #90 caps 05/22/21 capsule (omega-3 fatty acids) benzocaine 15 mg-menthol 2.6 mg 1 isis mucous membrane Q2-4H PRN 03/20/22 lozenges (Cepacol Sore Throat sore throat #16 ea (benzocaine-menthol)) blood sugar diagnostic (FreeStyle #50 ea 05/15/22 Lite Strips) blood-glucose meter (FreeStyle #1 ea 05/15/22 Lite Meter kit) cholecalciferol (vitamin D3) 50 50 mcg PO DAILY 90 days #90 caps 10/08/22 mcg (2,000 unit) capsule cyanocobalamin (vitamin B-12) 1,000 mcg PO DAILY #90 tabs 11/04/22 1,000 mcg tablet citalopram 20 mg tablet 20 mg PO DAILY 90 days #90 tabs 11/15/22 ezetimibe 10 mg tablet 10 mg PO DAILY #90 tabs 11/15/22 folic acid 1 mg tablet 1 mg PO DAILY #90 tabs 11/15/22 gabapentin 300 mg capsule 300 mg PO BEDTIME #30 caps 11/15/22 lancets 28 gauge (FreeStyle #100 ea 11/15/22 Lancets) metformin 500 mg tablet,extended 500 mg PO BID 90 days #180 tabs 11/15/22 release 24 hr pen needle, diabetic 32 gauge x #90 ea 11/15/22 5/32 (BD Stephanie 2nd Gen Pen Needle) BED PADS #30 ea 11/16/22 KOTEX #120 ea 11/16/22 WIPES #3 ea 11/16/22 levothyroxine 75 mcg tablet 75 mcg PO DAILY #30 tabs 12/28/22 lovastatin 20 mg tablet 20 mg PO DAILY 30 days #30 tabs 01/04/23 albuterol sulfate 90 mcg/actuation 2 puff inhalation Q6H PRN for 01/11/23 aerosol inhaler (Ventolin HFA) wheezing #18 ea omega-3 fatty acids 1,000 mg 1,000 mg PO DAILY #90 caps 01/11/23 capsule naproxen 500 mg tablet 500 mg PO BID PRN pain 7 days #14 03/19/23 tabs oxycodone 5 mg tablet 5 mg PO TID PRN pain 3 days #9 tabs 03/19/23 prednisone 20 mg tablet 40 mg PO DAILY 5 days #10 tabs 03/19/23 Allergies Allergy/AdvReac Type Severity Reaction Status Date / Time atorvastatin [Lipitor] Allergy Unknown myalgia Verified 03/13/23 13:11 rosuvastatin [From Crestor] Allergy Unknown Myalgia Verified 03/13/23 13:11 acetaminophen [Tylenol] AdvReac Unknown Anaphylaxis Verified 03/13/23 13:11 Review of Systems Review of Systems: Posterior neck pain. Yes all other systems are reviewed and are negative PMFSH Past Medical History Medical History Anxiety and depression Asthma B12 deficiency Carpal tunnel syndrome of right wrist Chondrocalcinosis Degenerative disc disease, cervical Hyperlipidemia LDL goal <100 Hypoglycemia unawareness associated with type 2 diabetes mellitus Hypothyroid Multinodular goiter Osteoarthritis Renal stones Screening for osteoporosis Serum potassium elevated Type 2 diabetes mellitus with diabetic polyneuropathy Surgical History History of cataract surgery Hx of bilateral breast reduction surgery Hx of lithotripsy Hx of vaginal hysterectomy Hx of wisdom tooth extraction Family History Family History Father Heart disease Hypertension Myocardial infarction CVD (cardiovascular disease) Mother Hypertension Type II diabetes mellitus Daughter No problems noted. Sister In good health Sister In good health Brother No problems noted. Brother No problems noted. Brother No problems noted. Social History Social History Household Members: None Housing: Apartment Alcohol intake: never Patient Tobacco Use Status: Never used Tobacco e-Cigarette/Vaping Use: Never Used Second Hand Smoke Exposure: No Advance Directives: No Advance Directives Information Provided: Yes Current occupational status: retired Cognitive needs: No Hearing needs: No Vision needs: Yes Physical Exam ED Vital Signs: Vital Signs - 24 hr 03/19/23 08:12 Temperature 97.9 F Pulse Rate 88 Respiratory Rate 16 Blood Pressure 123/76 Pulse Oximetry 99 Oxygen Delivery Method Room Air BMI result Body Mass Index 16.8 Const General: cooperative, healthy appearing, comfortable, no acute distress, well developed, alert, awake and Physically active Orientation/consciousness: oriented to person, oriented to place, oriented to time and patient oriented x3 HENMT Head: Yes normal to inspection, Yes No palpable skull fracture present, Yes normocephalic, Yes atraumatic and No abrasion Ears: hearing grossly normal bilaterally, external ears normal, TM's normal bilaterally, TM normal on the right, TM normal on the left, EAC's normal, mastoids normal and no periauricular adenopathy Eyes Other: Negative photophobia General: appearance normal, both eyes and all related structures Pupils: Equal, round and reactive pupils present Neck Neck: Yes normal visual inspection, Yes full ROM, Yes no lymphadenopathy, Yes no meningeal signs, Yes trachea midline, Yes supple, No anterior neck swelling, No bilateral parotid enlargement, No lymphadenopathy, No midline deformity, No positive Brudzinski's sign, No positive Kernig's sign and Yes tender (posterior cervical tenderness) Chest Chest palpation & inspection: normal inspection of the chest and normal palpation of entire chest wall Resp Effort & Inspection: normal respiratory effort and able to speak in complete sentences Auscultation: clear to auscultation bilaterally Cardio Jugular venous distension: no JVD Heart sounds: S1 normal heart sound present and S2 normal heart sound present GI Inspection: Yes normal to inspection Palpation (GI): Soft to palpation, not firm, nontender, no guarding and not rigid General: No CVA tenderness and Yes no CVA tenderness Back/Spine/Pelvis Back: no CVA tenderness, No CVA tenderness and No back tenderness Skin General skin exam: no rashes or lesions noted and elasticity normal Neuro General: oriented to person, oriented to place, oriented to time, patient oriented x3, gait normal, tone normal, moves all extremities, Normal light touch and pain sensation, no meningeal signs, no focal motor deficits, CN's II-XI intact bilaterally and normal sensation to monofilament Cranial nerves: Yes Equal, round and reactive pupils present Extrem General: Yes normal to inspection and Yes full ROM Psych Appearance: grossly normal, well kempt and not disheveled Medications Administered Discontinued Medications Generic Name Dose Route Start Last Admin Trade Name Freq PRN Reason Stop Dose Admin Cyclobenzaprine HCl 10 mg 03/19/23 09:47 03/19/23 10:12 Cyclobenzaprine Hcl 10 Mg Tablet PO 03/19/23 09:48 10 mg ONCE ONE Administration Oxycodone HCl 5 mg 03/19/23 10:37 03/19/23 10:47 Oxycodone Hcl Immed Release 5 Mg Tablet PO 03/19/23 10:38 5 mg ONCE ONE Administration Prednisone 60 mg 03/19/23 09:47 03/19/23 10:12 Prednisone 20 Mg Tablet PO 03/19/23 09:48 60 mg ONCE ONE Administration Medical Decision Making Medical Decision Making MDM Narrative: 72-year-old female history of diabetes hypertension presents to ED for posterior neck pain worse on movement rated up to head without any trauma. Patient denies any constitutional symptoms. Patient denies any recent trauma to the head, photophobia, nausea, vomiting. Patient states no fever or chills. Vital signs are stable. Differential Diagnosis Differential Diagnoses: The differential diagnosis associated with the presentation includes ( Meningitis, cervical spine fracture, brain bleed, temporal arthritis, cervical spine abscess) Admission/Observation Consideration of admission/observation: Escalation of care including admission/observation considered Independent Interpretation I performed an independent interpretation of an: CT Scan Radiology Impression Discussion of test interpretation with radiology: I have reviewed the radiologist's reading. Independent Historian Clinical information obtained from an independent historian. History obtained from or confirmed by: Other (LOAN PROCESSOR) External Record Review External record reviewed: Other (ED records) Prescription Management I considered prescription management with: Pain Medication and Other (steroids) Chronic Conditions Patient?s care impacted by: Diabetes and Hypertension Discharge Plan Discharge Clinical Impression: Cervical radiculopathy Patient Disposition: Home, Self-Care Instructions: Cervical Radiculopathy (ED) Additional Instructions: You're CT scan shows severe cervical radicularpathy/ arthritis you need to follow-up with her primary care provider for physical therapy referral and possible MRI. Return to the ED immediately for any fever, chills, headache, nausea, vomiting, photophobia, paralysis of upper extremity, slurred speech, facial droop, chest pain, shortness of breath, or any other concerning symptoms. Prescriptions: New prednisone 20 mg tablet 40 mg PO DAILY 5 Days Qty: 10 0RF naproxen 500 mg tablet 500 mg PO BID PRN (Reason: pain) 7 Days Qty: 14 0RF oxycodone 5 mg tablet 5 mg PO TID PRN (Reason: pain) 3 Days Qty: 9 0RF Rx Instructions: Partial Fill upon patient request. No Action omega-3 fatty acids [Fish Oil Concentrate] 1,000 mg capsule 1,000 mg PO DAILY Qty: 90 0RF Cepacol Sore Throat (josé miguel-men) 15-2.6 mg lozenge 1 isis mucous membrane Q2-4H PRN (Reason: sore throat) Qty: 16 1RF (DME) FreeStyle Lite Strips Strip See Rx Instructions .ROUTE .MEDSUPPLY Qty: 50 11RF Rx Instructions: twice a day (DME) blood-glucose meter [FreeStyle Lite Meter] Kit See Rx Instructions .ROUTE .MEDSUPPLY Qty: 1 0RF Rx Instructions: As directed cyanocobalamin (vitamin B-12) 1,000 mcg tablet 1,000 mcg PO DAILY Qty: 90 3RF metformin 500 mg tablet extended release 24 hr 500 mg PO BID 90 Days Qty: 180 2RF ezetimibe 10 mg tablet 10 mg PO DAILY Qty: 90 1RF (DME) pen needle, diabetic [BD Stephanie 2nd Gen Pen Needle] 32 gauge x 5/32 needle See Rx Instructions .ROUTE .MEDSUPPLY Qty: 90 3RF Rx Instructions: As directed once daily (DME) lancets [FreeStyle Lancets] 28 gauge misc See Rx Instructions .ROUTE .MEDSUPPLY Qty: 100 6RF Rx Instructions: As directed twice a day folic acid 1 mg tablet 1 mg PO DAILY Qty: 90 2RF citalopram 20 mg tablet 20 mg PO DAILY 90 Days Qty: 90 2RF gabapentin 300 mg capsule 300 mg PO BEDTIME Qty: 30 4RF (DME) WIPES See Rx Instructions .Route .MEDSUPPLY Qty: 3 12RF Rx Instructions: Wipes 3/month Kotex 4x's a day bed pads 1 a day (DME) KOTEX See Rx Instructions .Route .MEDSUPPLY Qty: 120 12RF Rx Instructions: As directedWipes 3/month Kotex 4x's a day bed pads 1 a day (DME) BED PADS See Rx Instructions .Route .MEDSUPPLY Qty: 30 12RF Rx Instructions: Wipes 3/month Kotex 4x's a day bed pads 1 a day levothyroxine 75 mcg tablet 75 mcg PO DAILY Qty: 30 2RF lovastatin 20 mg tablet 20 mg PO DAILY 30 Days Qty: 30 3RF omega-3 fatty acids 1,000 mg capsule 1,000 mg PO DAILY Qty: 90 0RF albuterol sulfate [Ventolin HFA] 90 mcg/actuation HFA aerosol inhaler 2 puff inhalation Q6H PRN (Reason: for wheezing) Qty: 18 0RF cholecalciferol (vitamin D3) 50 mcg (2,000 unit) capsule 50 mcg PO DAILY 90 Days Qty: 90 3RF hydroxyzine HCl 10 mg tablet 10 mg PO BID clonazepam 0.5 mg tablet 0.5 mg PO DAILY PRN magnesium 250 mg tablet 250 mg PO DAILY Interventions: ED Discharge Assessment Last Done: 03/19/23 10:50 Discharge Date/Time: 03/19/23 10:51 Print Language: Belarusian
[2023-03-19] MEDS: oxyCODONE HCl Immed Release 5 MG TABLET PO (10:47)
== END 2023-03-19 10:51 | disposition home or self-care (01) ==
PROVIDERS: Emergency Provider Emergency Medicine; PCP Internal Medicine
DX: M54.12 Radiculopathy, cervical region (principal); R51.9 Headache, unspecified; M54.2 Cervicalgia
CPT/HCPCS: 70450; 72125; 99283; 99284

== ENCOUNTER 2023-03-25 08:53 | Outpatient (REF) | payer OTHER, SELFPAY ==
--- NOTE | ~2023-03-25 | XR_ITS ---
EXAMINATION: XR CHEST CLINICAL INFORMATION: Reason for Exam R63.4 - Abnormal weight loss COMPARISON: Chest radiograph 12/21/2016 TECHNIQUE: 2 views of the chest FINDINGS: Lines and tubes: None. Clear lungs. Mild asymmetric elevation of the right hemidiaphragm unchanged. No pleural effusion. No pneumothorax. Normal cardiomediastinal silhouette for age. XR/XR chest 2V IMPRESSION: Clear lungs. If clinical concern for malignancy, CT would be more sensitive for evaluation.
[2023-03-25 09:19] LABS: MANUAL DIFF FLAG NO
[2023-03-25 09:31] LABS: Basophils Absolute Auto 0.1 X10*3/uL (0.0-0.2); Eosinophils Absolute Auto 0.3 X10*3/uL (0.0-0.4); Eosinophils Percent Auto 2.9 % (0-4); Hematocrit 40.5 % (37.0-47.0); Imm Gran Abs Auto 0.05 X10*3/uL (0.00-0.03); Imm Gran Pct Auto 0.6 % (0.0-0.4); Immature Retic Fraction 16.6 % (3.0-15.9); Lymphocytes Percent Auto 22.8 % (20-40); Mean Corpuscular HGB Conc 34.6 g/dl (31.0-35.0); Mean Corpuscular Hemoglobin 28.1 pg (27.0-33.0); Mean Corpuscular Volume 81.2 fL (80.0-98.0); Mean Platelet Volume 9.2 fL (9.4-12.3); Monocytes Absolute Auto 0.6 X10*3/uL (0.1-1.2); Neutrophils Absolute Auto 5.8 x10*3/uL (2.0-8.3); Neutrophils Percent Auto 65.7 % (45-73); Platelet Count 401 X10*3/uL (160-400); Red Blood Count 4.99 X10*6/uL (4.20-5.50); Red Cell Distribution Width 15.5 % (11.0-16.0); Reticulocyte Percent 1.6 % (0.5-1.8); Reticulocytes Absolute 0.079 X10*6/uL (0.026-0.095); White Blood Count 8.9 X10*3/uL (4.8-10.8)
[2023-03-25 10:03] LABS: Calcium 10.7 mg/dL (8.4-10.2); Iron 94 mcg/dL (30-160); Percent Iron Saturation 34 % (15-50); Total Iron Binding Capacity 275 mcg/dL (228-428); Unsaturated Iron Binding 181 ug/dL
[2023-03-25 10:18] LABS: Ferritin 55 ng/mL (10-250)
[2023-03-25 10:27] LABS: Folate 14.7 ng/mL (> or = 4.0); Vitamin B12 1862 pg/mL (200-900)
[2023-03-27 18:58] LABS: Calcium (PTHI) 10.6 mg/dL (8.6-10.4); PTHI 39 pg/mL (16-77)
[2023-03-29 14:28] LABS: Calcium, Ionized 5.5 mg/dL (4.7-5.5)
== END 2023-03-25 08:54 | disposition home or self-care (01) ==
LOC: HO.XRAY 08:53
PROVIDERS: PCP Internal Medicine; Visit Provider Internal Medicine
DX: R63.4 Abnormal weight loss (principal); D64.9 Anemia, unspecified
CPT/HCPCS: 36415; 71046; 82310; 82330; 82607; 82728; 82746; 83540; 83970; 85025; 85045

== ENCOUNTER 2023-04-03 13:30 | Outpatient (AMB) | payer OTHER, SELFPAY ==
[2023-04-03 13:43] VITALS: BP 116/62; PULSE 68; O2SAT 97; BMI 17.4
--- NOTE | 2023-04-03 13:43 | A.OFFPC_ITS ---
Vital Signs 04/03/23 13:43 Height 5 ft 1.5 in Weight 93 lb 6 oz BMI 17.4 BP 116/62 Blood Pressure Location Lt brachial Position Sitting Pulse 68 Pulse Source Pulse Oximeter Pulse Oximetry (%) 97 Oxygen Delivery Method Room Air Intake Visit Reasons: 4 WEEK F/U weight loss Allergies atorvastatin [Lipitor] Allergy (Unknown, Verified 04/03/23 13:43) myalgia rosuvastatin [From Crestor] Allergy (Unknown, Verified 04/03/23 13:43) Myalgia acetaminophen [Tylenol] Adverse Reaction (Unknown, Verified 04/03/23 13:43) Anaphylaxis Medication List - Last Reconciled 04/03/23 by Jennifer Moody MD albuterol sulfate 90 mcg/actuation (Ventolin HFA) 2 puffs inhalation Q6H PRN [BED PADS Wipes 3/month Kotex 4x's a day bed pads 1 a day] benzocaine-menthol 15-2.6 mg (Cepacol Sore Throat (benzocaine-menthol)) 1 isis mucous membrane Q2-4H PRN blood sugar diagnostic (FreeStyle Lite Strips) twice a day blood-glucose meter (FreeStyle Lite Meter kit) As directed citalopram 20 mg PO DAILY 90 days clonazepam 0.5 mg PO DAILY PRN cyanocobalamin (vitamin B-12) 1,000 mcg PO DAILY diclofenac sodium 1% (Arthritis Pain (diclofenac)) 4 grams topical QID ezetimibe 10 mg PO DAILY Fish Oil Concentrate (omega-3 fatty acids) 1,000 mg PO DAILY NS folic acid 1 mg PO DAILY gabapentin 300 mg PO BEDTIME hydroxyzine HCl 10 mg PO BID [KOTEX As directedWipes 3/month Kotex 4x's a day bed pads 1 a day] lancets (FreeStyle Lancets) As directed twice a day levothyroxine 75 mcg PO DAILY lovastatin 20 mg PO DAILY 30 days magnesium 250 mg PO DAILY metformin ER 500 mg PO BID 90 days naproxen 500 mg PO BID PRN 7 days omega-3 fatty acids 1,000 mg PO DAILY oxycodone 5 mg PO TID PRN 3 days pen needle, diabetic (BD Stephanie 2nd Gen Pen Needle) As directed once daily prednisone 40 mg (2 x 20 mg) PO DAILY 5 days [WIPES Wipes 3/month Kotex 4x's a day bed pads 1 a day] Tobacco use date assessed: 10/08/22 Fall risk assessment: No Falls in past year Last assessed Fall Risk: 04/03/23 Dental Screening Dental Screen Date: 04/03/23 Did you have a dental visit in the last 12 months?: Yes Did you have a dental problem in the last 6 months where you did not have access to dental care?: No Was dental information given to patient?: Patient has dentist HPI 4 WEEK F/U weight loss HPI Details 72-year-old female with controlled diabetes mellitus depression asthma hypercholesterolemia hypothyroidism last seen in March 2023 and concern about weight loss. Workup was requested and is here for follow-up. Cologuard negative up-to-date . March 19 ER visit due to neck pain Ct scan done no cute finding except for cervical degenerative changes - complains of buzzing sound- she did see [facility] for depression yesterday. [facility] Medical History (Updated 04/03/23 @ 14:14 by Jennifer Moody MD) Anxiety and depression Asthma B12 deficiency Carpal tunnel syndrome of right wrist Chondrocalcinosis Colon cancer screening Colonoscopy refused COVID-19 virus infection Degenerative disc disease, cervical Hyperlipidemia LDL goal <100 Hypoglycemia Hypoglycemia unawareness associated with type 2 diabetes mellitus Hypothyroid Mammogram declined Multinodular goiter Osteoarthritis Renal stones Screening for osteoporosis Serum potassium elevated Type 2 diabetes mellitus with diabetic polyneuropathy Surgical History History of cataract surgery Hx of bilateral breast reduction surgery Hx of lithotripsy Hx of vaginal hysterectomy Hx of wisdom tooth extraction Family History Father Heart disease Hypertension Myocardial infarction CVD (cardiovascular disease) Mother Hypertension Type II diabetes mellitus Daughter No problems noted. Sister In good health Sister In good health Brother No problems noted. Brother No problems noted. Brother No problems noted. Social History Household Members: None Housing: Apartment Alcohol intake: never Patient Tobacco Use Status: Never used Tobacco e-Cigarette/Vaping Use: Never Used Second Hand Smoke Exposure: No Current occupational status: retired Cognitive needs: No Hearing needs: No Vision needs: Yes Questionnaire PHQ-9 Over the last 2 weeks, how often have you been bothered by any of the following problems? 1. Little interest or pleasure in doing things: more than half the days 2. Feeling down, depressed, or hopeless: several days 3. Trouble falling or staying asleep, or sleeping too much: nearly every day 4. Feeling tired or having little energy: more than half the days 5. Poor appetite or overeating: not at all 6. Feeling bad about yourself - or that you are a failure or have let yourself or your family down: not at all 7. Trouble concentrating on things, such as reading the newspaper or watching television: nearly every day 8. Moving or speaking so slowly that other people could have noticed. Or the opposite - being so fidgety or restless that you have been moving around a lot more than usual: not at all 9. Thoughts that you would be better off or of hurting yourself in some way: not at all Total score: 11 Depression Screening Interpretation: Positive Source: Developed by Drs. Matheus Cox, Linus Gant and colleagues, with an educational roxana from [employer]. Thrive Questionnaire Date Thrive assessed: 10/08/22 AUDIT C Alcohol Use Questionnaire (AUDIT-C) 1. How often do you have a drink containing alcohol?: Never 2. How many drinks containing alcohol do you have on a typical day when you are drinking?: 1 or 2 3. How often do you have six or more drinks on one occasion?: Never Total Score: 0 DENISHA-7 AMB Questionnaire DENISHA-7 Date DENISHA - 7 assessed: 10/08/22 Source: Developed by Drs. Matheus Cox, Linus Gant and colleagues, with an educational roxana from [employer]. Physical exam (Primary Care) Vital Signs: Last Vital Signs Pulse 68 04/03/23 13:43 BP 116/62 04/03/23 13:43 Pulse Ox 97 04/03/23 13:43 Oxygen Delivery Method Room Air 04/03/23 13:43 BMI result Body Mass Index 17.4 Tobacco/Smoking Status: Tobacco use Status Tobacco use date assessed 10/08/22 04/03/23 13:47 Patient Tobacco Use Status Never used Tobacco 04/03/23 13:47 e-Cigarette/Vaping Use Never Used 04/03/23 13:47 PHQ-9: PHQ-9 Score PHQ-9: Total score 11 04/03/23 13:47 Depression Screening Interpretation: Positive Thrive Assessment: Date of Thrive Assessment Date Thrive assessed 10/08/22 04/03/23 13:47 Const General: alert; No acute distress Eyes Conjunctivae: conjunctivae normal Resp Auscultation: clear to auscultation bilaterally Cardio Rate: regular rate Rhythm: regular rhythm GI Inspection: Yes normal to inspection Extrem General: Yes normal to inspection and No edema Assessment and Plan Assessment & Plan (1) Type 2 diabetes mellitus with hyperglycemia: Comment: Dr. Dick Code(s): E11.65 - Type 2 diabetes mellitus with hyperglycemia Plan: Decrease the amount of carbohydrate intake, pasta, bread, rice and potatoes are all sugar and that is aside from all the sweet stuff, remember that fruits are good but they are Sweet also. Hemoglobin A1c goal of less than 7.0 patient is on metformin 500 mg twice a day (2) Moderate depressive disorder: Comment: Today's PHQ suggestive of moderate depression. Continue current regimen by PCP. Reinforced coping strategies and social support. Seek medical attention for any suicidal and/or homicidal ideations. [facility] Counseling Code(s): F32.1 - Major depressive disorder, single episode, moderate Plan: Continue with present medication (3) Hyperlipidemia LDL goal <100: Comment: Statin intolerant Code(s): E78.5 - Hyperlipidemia, unspecified Plan: Avoid fried foods, chicken skin, eggs, butter margarine, pastries and meat. Be it pork or beef they have a lot of cholesterol on Zetia (4) Hypothyroid: Code(s): E03.9 - Hypothyroidism, unspecified Qualifiers: Hypothyroidism type: acquired Qualified Code(s): E03.9 - Hypothyroidism, unspecified Plan: Continue with thyroid medication (5) Weight loss: Code(s): R63.4 - Abnormal weight loss Plan: Workup has been a (6) Degenerative disc disease, cervical: Comment: C6-C7 and C5-08 October 2009 in [place] Code(s): M50.30 - Other cervical disc degeneration, unspecified cervical region Orders: Orders CT chest w IV con Today R63.4 - Abnormal weight loss Blood Urea Nitrogen Today R63.4 - Abnormal weight loss Creatinine Today R63.4 - Abnormal weight loss CT abdomen pelvis w IV con Today R63.4 - Abnormal weight loss Medications: New diclofenac sodium 1% (Arthritis Pain (diclofenac)) apply to single knee, ankle, foot; for foot includes sole/toes/top of foot 4 grams topical QID 100 grams 4RF M50.30 - Other cervical disc degeneration, unspecified cervical region Discontinued cholecalciferol (vitamin D3) Discontinued Reason: Doctor's Order 50 mcg PO DAILY 90 days 90 caps 3RF E55.9 - Vitamin D deficiency, unspecified, E78.5 - Hyperlipidemia, unspecified Coding Level of Care Code Est Pt Level 4 (30666) Diagnoses Type 2 diabetes mellitus with hyperglycemia E11.65 Moderate depressive disorder F32.1 Hyperlipidemia LDL goal <100 E78.5 Hypothyroid E03.9 Hypothyroidism type: acquired Weight loss R63.4 Degenerative disc disease, cervical M50.30 Additional Codes PHQ-9 - 01593 - PHQ-9 Billing: Y ([id number])
== END 2023-04-03 14:22 | disposition home or self-care (01) ==
PROVIDERS: PCP Internal Medicine; Visit Provider Internal Medicine
DX: E11.65 Type 2 diabetes mellitus with hyperglycemia (principal); F32.1 Major depressive disorder, single episode, moderate; E78.5 Hyperlipidemia, unspecified; E03.9 Hypothyroidism, unspecified; R63.4 Abnormal weight loss; M50.30 Other cervical disc degeneration, unspecified cervical region
CPT/HCPCS: 96127; 99214

== ENCOUNTER 2023-05-17 08:37 | Outpatient (REF) | payer OTHER, SELFPAY ==
[2023-05-17 11:21] LABS: Blood Urea Nitrogen 25 mg/dL (9-16); Estimated Glomerular Filt Rate 53
== END 2023-05-17 08:38 | disposition home or self-care (01) ==
LOC: HO.LAB 08:37
PROVIDERS: PCP Internal Medicine; Visit Provider Internal Medicine
DX: R63.4 Abnormal weight loss (principal)
CPT/HCPCS: 36415; 82565; 84520

== ENCOUNTER 2023-05-22 11:55 | Outpatient (AMB) | payer OTHER, SELFPAY ==
[2023-05-22 11:57] VITALS: BP 150/82; PULSE 63; O2SAT 99; BMI 18.4
--- NOTE | 2023-05-22 11:57 | A.OFFPC_ITS ---
Vital Signs 05/22/23 11:57 Height 5 ft 1.5 in Weight 99 lb BMI 18.4 BP 150/82 H Blood Pressure Location Lt brachial Position Sitting Pulse 63 Pulse Source Pulse Oximeter Pulse Oximetry (%) 99 Oxygen Delivery Method Room Air Intake Visit Reasons: 6 week f/u Allergies atorvastatin [Lipitor] Allergy (Unknown, Verified 05/22/23 11:58) myalgia rosuvastatin [From Crestor] Allergy (Unknown, Verified 05/22/23 11:58) Myalgia acetaminophen [Tylenol] Adverse Reaction (Unknown, Verified 05/22/23 11:58) Anaphylaxis Medication List - Last Reconciled 05/22/23 by Jennifer Moody MD albuterol sulfate 90 mcg/actuation (Ventolin HFA) 2 puffs inhalation Q6H PRN [BED PADS Wipes 3/month Kotex 4x's a day bed pads 1 a day] benzocaine-menthol 15-2.6 mg (Cepacol Sore Throat (benzocaine-menthol)) 1 isis mucous membrane Q2-4H PRN blood sugar diagnostic (FreeStyle Lite Strips) twice a day blood-glucose meter (FreeStyle Lite Meter kit) As directed citalopram 20 mg PO DAILY 90 days clonazepam 0.5 mg PO DAILY PRN cyanocobalamin (vitamin B-12) 1,000 mcg PO DAILY diclofenac sodium 1% (Arthritis Pain (diclofenac)) 4 grams topical QID ezetimibe 10 mg PO DAILY Fish Oil Concentrate (omega-3 fatty acids) 1,000 mg PO DAILY NS fluticasone propionate 50 mcg/actuation (Flonase Allergy Relief) 2 sprays intranasal DAILY folic acid 1 mg PO DAILY gabapentin 300 mg PO BEDTIME hydroxyzine HCl 10 mg PO BID [KOTEX As directedWipes 3/month Kotex 4x's a day bed pads 1 a day] lancets (FreeStyle Lancets) As directed twice a day levothyroxine 75 mcg PO DAILY lovastatin 20 mg PO DAILY 30 days magnesium 250 mg PO DAILY meclizine 25 mg PO TID metformin ER 1,000 mg (2 x 500 mg) PO BID 90 days naproxen 500 mg PO BID PRN 7 days omega-3 fatty acids 1,000 mg PO DAILY oxycodone 5 mg PO TID PRN 3 days pen needle, diabetic (BD Stephanie 2nd Gen Pen Needle) As directed once daily prednisone 40 mg (2 x 20 mg) PO DAILY 5 days [WIPES Wipes 3/month Kotex 4x's a day bed pads 1 a day] Tobacco use date assessed: 10/08/22 Fall risk assessment: No Falls in past year Last assessed Fall Risk: 05/22/23 Dental Screening Dental Screen Date: 05/22/23 Did you have a dental visit in the last 12 months?: Yes Did you have a dental problem in the last 6 months where you did not have access to dental care?: No Was dental information given to patient?: Patient has dentist HPI 6 week f/u HPI Details 72-year-old Female with controlled diabe simone mellitus hypercholesterolemia hypothyroidism depression coming in for follow-up. Last seen in April 2023 noted to have lost weight PFSH Medical History (Updated 05/22/23 @ 13:22 by Jennifer Moody MD) COVID-19 virus infection Colon cancer screening Hypoglycemia Hypoglycemia unawareness associated with type 2 diabetes mellitus Screening for osteoporosis Multinodular goiter Mammogram declined Colonoscopy refused Degenerative disc disease, cervical Chondrocalcinosis Anxiety and depression Asthma Osteoarthritis Carpal tunnel syndrome of right wrist Serum potassium elevated B12 deficiency Renal stones Type 2 diabetes mellitus with diabetic polyneuropathy Hyperlipidemia LDL goal <100 Hypothyroid Surgical History History of cataract surgery Hx of lithotripsy Hx of wisdom tooth extraction Hx of vaginal hysterectomy Hx of bilateral breast reduction surgery Family History Father Heart disease Hypertension Myocardial infarction CVD (cardiovascular disease) Mother Hypertension Type II diabetes mellitus Daughter No problems noted. Sister In good health Sister In good health Brother No problems noted. Brother No problems noted. Brother No problems noted. Social History Household Members: None Housing: Apartment Alcohol intake: never Patient Tobacco Use Status: Never used Tobacco e-Cigarette/Vaping Use: Never Used Second Hand Smoke Exposure: No Current occupational status: retired Cognitive needs: No Hearing needs: No Vision needs: Yes Questionnaire PHQ-9 Over the last 2 weeks, how often have you been bothered by any of the following problems? 1. Little interest or pleasure in doing things: more than half the days 2. Feeling down, depressed, or hopeless: several days 3. Trouble falling or staying asleep, or sleeping too much: nearly every day 4. Feeling tired or having little energy: more than half the days 5. Poor appetite or overeating: not at all 6. Feeling bad about yourself - or that you are a failure or have let yourself or your family down: not at all 7. Trouble concentrating on things, such as reading the newspaper or watching television: nearly every day 8. Moving or speaking so slowly that other people could have noticed. Or the opposite - being so fidgety or restless that you have been moving around a lot more than usual: not at all 9. Thoughts that you would be better off or of hurting yourself in some way: not at all Total score: 11 Depression Screening Interpretation: Positive Source: Developed by Drs. Matheus Cox, Shae Armas, Linus Cheng and colleagues, with an educational roxana from [email or web address]. Thrive Questionnaire Date Thrive assessed: 10/08/22 AUDIT C Alcohol Use Questionnaire (AUDIT-C) 1. How often do you have a drink containing alcohol?: Never 2. How many drinks containing alcohol do you have on a typical day when you are drinking?: 1 or 2 3. How often do you have six or more drinks on one occasion?: Never Total Score: 0 DENISHA-7 AMB Questionnaire DENISHA-7 Date DENISHA - 7 assessed: 10/08/22 Source: Developed by Drs. Matheus Cox, Shae Armas, Linus Cheng and colleagues, with an educational roxana from [email or web address]. Physical exam (Primary Care) Vital Signs: Last Vital Signs Pulse 63 05/22/23 11:57 BP 150/82 H 05/22/23 11:57 Pulse Ox 99 05/22/23 11:57 Oxygen Delivery Method Room Air 05/22/23 11:57 BMI result Body Mass Index 18.4 Tobacco/Smoking Status: Tobacco use Status Tobacco use date assessed 10/08/22 05/22/23 12:03 Patient Tobacco Use Status Never used Tobacco 05/22/23 12:03 e-Cigarette/Vaping Use Never Used 05/22/23 12:03 PHQ-9: PHQ-9 Score PHQ-9: Total score 11 05/22/23 13:28 Depression Screening Interpretation: Positive Thrive Assessment: Date of Thrive Assessment Date Thrive assessed 10/08/22 05/22/23 12:03 Const General: alert; No acute distress Eyes Conjunctivae: conjunctivae normal Resp Auscultation: clear to auscultation bilaterally Cardio Rate: regular rate Rhythm: regular rhythm GI Inspection: Yes normal to inspection Extrem General: Yes normal to inspection and No edema Results AMB Urinalysis, Automated UA Leukoctes 500 Chente/uL Last Edit by Jia Benton CMA on 05/22/23 15: 00 UA Nitrite Negative Last Edit by Jia Benton, [facility] on 05/22/23 15:00 UA Urobilinogen 0.2 mg/dL Last Edit by Jia Benton, [facility] on 05/22/23 15:00 UA Protein 0 mg/dL Last Edit by Jia Benton, [facility] on 05/22/23 15:00 UA pH 6.0 Last Edit by Jia Benton, [facility] on 05/22/23 15:00 UA Blood 10 Hector/uL Last Edit by Jia Benton, [facility] on 05/22/23 15:00 UA Specific Badger 1.015 Last Edit by Jia Benton, [facility] on 05/22/23 15:00 UA Ketone Negative Last Edit by Jia Benton, [facility] on 05/22/23 15:00 UA Bilirubin 0 mg/dL Last Edit by Jia Benton, [facility] on 05/22/23 15:00 UA Glucose 0 mg/dL Last Edit by Jia Benton, [facility] on 05/22/23 15:00 Assessment and Plan Assessment & Plan (1) Type 2 diabetes mellitus with hyperglycemia: Comment: Dr. Dick Code(s): E11.65 - Type 2 diabetes mellitus with hyperglycemia Plan: Decrease the amount of carbohydrate intake, pasta, bread, rice and potatoes are all sugar and that is aside from all the sweet stuff, remember that fruits are good but they are Sweet also. Patient has it controlled with metformin 1000 mg twice a day (2) Moderate depressive disorder: Comment: Today's PHQ suggestive of moderate depression. Continue current regimen by PCP. Reinforced coping strategies and social support. Seek medical attention for any suicidal and/or homicidal ideations. [facility] Code(s): F32.1 - Major depressive disorder, single episode, moderate Plan: Continue with present medication (3) Hyperlipidemia LDL goal <100: Comment: Statin intolerant Code(s): E78.5 - Hyperlipidemia, unspecified Plan: Avoid fried foods, chicken skin, eggs, butter margarine, pastries and meat. Be it pork or beef they have a lot of cholesterol on (4) Hypothyroid: Code(s): E03.9 - Hypothyroidism, unspecified Qualifiers: Hypothyroidism type: acquired Qualified Code(s): E03.9 - Hypothyroidism, unspecified Plan: Continue with thyroid medication (5) Weight loss: Code(s): R63.4 - Abnormal weight loss Plan: Weight is stable (6) Nasal congestion: Code(s): R09.81 - Nasal congestion (7) Dizzy: Code(s): R42 - Dizziness and giddiness (8) Dysuria: Code(s): R30.0 - Dysuria Orders: Orders AMB Urinalysis Automated Today R30.0 - Dysuria, Z13.9 - Encounter for screening, unspecified Medications: New meclizine 25 mg PO TID 30 tabs 2RF R42 - Dizziness and giddiness fluticasone propionate 50 mcg/actuation (Flonase Allergy Relief) administer into each nostril 2 sprays intranasal DAILY 16 grams 2RF R09.81 - Nasal congestion Coding Level of Care Code Est Pt Level 4 (57278) Diagnoses Type 2 diabetes mellitus with hyperglycemia E11.65 Moderate depressive disorder F32.1 Hyperlipidemia LDL goal <100 E78.5 Acquired hypothyroidism E03.9 Hypothyroidism type: acquired Weight loss R63.4 Nasal congestion R09.81 Dizzy R42 Dysuria R30.0 Additional Codes PHQ-9 - 08461 - PHQ-9 Billing: ([id number])
== END 2023-05-22 13:32 | disposition home or self-care (01) ==
PROVIDERS: PCP Internal Medicine; Visit Provider Internal Medicine
DX: E11.65 Type 2 diabetes mellitus with hyperglycemia (principal); F32.1 Major depressive disorder, single episode, moderate; E03.9 Hypothyroidism, unspecified; R30.0 Dysuria; E78.5 Hyperlipidemia, unspecified; R63.4 Abnormal weight loss; R09.81 Nasal congestion; R42 Dizziness and giddiness
CPT/HCPCS: 81003; 99214

== ENCOUNTER 2023-08-29 09:50 | Emergency (ER) | payer OTHER, SELFPAY ==
--- NOTE | ~2023-08-29 | XR_ITS ---
EXAMINATION: XR HIP, RIGHT CLINICAL INFORMATION: Right hip pain COMPARISON: None available. TECHNIQUE: Two views of the right hip. FINDINGS: There is advanced circumferential narrowing of the right hip joint space with prominent spurring off the superior and inferior margins of the acetabulum. There is no acute fracture, dislocation or destructive lesion. Similar findings in the left hip. The pelvis is intact. There is degenerative change in the lower lumbar spine. XR/XR hip RT w PEL1V IMPRESSION: Advanced arthritic change.
--- NOTE | ~2023-08-29 | XR_ITS ---
EXAMINATION: XR CHEST CLINICAL INFORMATION: Cough COMPARISON: 03/25/2023 TECHNIQUE: Frontal view of the chest was obtained. FINDINGS: Lungs clear. Heart and pulmonary vessels are normal. textbook associate leads are present. There is degenerative change observed in both shoulder joints. XR/XR chest 1V IMPRESSION: No active disease.
--- NOTE | 2023-08-29 09:55 | ECG_ITS ---
Test Reason : chest tightness Blood Pressure : / mmHG Vent. Rate : 081 BPM Atrial Rate : 081 BPM P-R Int : 158 ms QRS Dur : 070 ms QT Int : 372 ms P-R-T Axes : 072 -43 043 degrees QTc Int : 432 ms Normal sinus rhythm Left axis deviation Low voltage QRS Inferior infarct (cited on or before 07-SEP-2015) Cannot rule out Anterior infarct , age undetermined Abnormal ECG When compared with ECG of 21-MAR-2018 10:47, Right bundle branch block is no longer Present Minimal criteria for Anterior infarct are now Present Referred By: Generic ED Physician Electronically Signed By:XIOMARA BECERRIL
[2023-08-29 10:09] VITALS: BP 127/64; PULSE 74; RESP 18; TEMP 37.2; O2SAT 100; BMI 17.9
[2023-08-29 10:36] LABS: MANUAL DIFF FLAG NO
[2023-08-29 10:37] LABS: Basophils Percent Auto 0.5 % (0-2); Eosinophils Absolute Auto 0.1 X10*3/uL (0.0-0.4); Eosinophils Percent Auto 1.6 % (0-4); Hematocrit 39.9 % (37.0-47.0); Hemoglobin 13.6 g/dl (12.0-16.0); Imm Gran Abs Auto 0.04 X10*3/uL (0.00-0.03); Imm Gran Pct Auto 0.5 % (0.0-0.4); Lymphocytes Absolute Auto 2.4 X10*3/uL (1.2-4.9); Lymphocytes Percent Auto 28.7 % (20-40); Mean Corpuscular HGB Conc 34.1 g/dl (31.0-35.0); Mean Corpuscular Volume 79.2 fL (80.0-98.0); Mean Platelet Volume 8.8 fL (9.4-12.3); Monocytes Absolute Auto 0.6 X10*3/uL (0.1-1.2); Neutrophils Absolute Auto 5.2 x10*3/uL (2.0-8.3); Neutrophils Percent Auto 61.7 % (45-73); Platelet Count 394 X10*3/uL (160-400); Red Blood Count 5.04 X10*6/uL (4.20-5.50); Red Cell Distribution Width 14.6 % (11.0-16.0); White Blood Count 8.3 X10*3/uL (4.8-10.8)
--- NOTE | 2023-08-29 10:38 | ED.GENADULT ---
HPI - General Adult General Chief complaint: Dyspnea Stated complaint: chest tightness and hip pain Time Seen by Provider: 08/29/23 10:37 Source: patient Mode of arrival: ambulatory Limitations: no limitations History of Present Illness HPI narrative: This is a 72-year-old female hx diabetes, constipation, asthma, presenting with multiple complaints, patient complaining productive cough of yellow/green sputum for the past week and a half worsening, reports cough is worse at night and is associated with shortness of breath & wheezing. Also reports she is having right hip and back pain that is been going on for the past few weeks progressively worsening pain is worse with ambulation, weight-bearing better rest. + recent sick contacts a few weeks ago at home who are now better. Denies chest pain, fevers, chills, nausea, vomiting, abdominal pain, headache, vision changes, dizziness. Related Data Home Medications Medication Instructions Recorded Confirmed clonazepam 0.5 mg tablet 0.5 mg PO DAILY PRN 07/04/20 05/22/23 hydroxyzine HCl 10 mg tablet 10 mg PO BID 07/04/20 05/22/23 magnesium 250 mg tablet 250 mg PO DAILY 07/04/20 05/22/23 Previous Rx's Medication Instructions Recorded Fish Oil Concentrate 1,000 mg 1,000 mg PO DAILY #90 caps 05/22/21 capsule (omega-3 fatty acids) benzocaine 15 mg-menthol 2.6 mg 1 isis mucous membrane Q2-4H PRN 03/20/22 lozenges (Cepacol Sore Throat sore throat #16 ea (benzocaine-menthol)) blood-glucose meter (FreeStyle #1 ea 05/15/22 Lite Meter kit) cyanocobalamin (vitamin B-12) 1,000 mcg PO DAILY #90 tabs 11/04/22 1,000 mcg tablet citalopram 20 mg tablet 20 mg PO DAILY 90 days #90 tabs 11/15/22 folic acid 1 mg tablet 1 mg PO DAILY #90 tabs 11/15/22 gabapentin 300 mg capsule 300 mg PO BEDTIME #30 caps 11/15/22 lancets 28 gauge (FreeStyle #100 ea 11/15/22 Lancets) pen needle, diabetic 32 gauge x #90 ea 11/15/22 (BD Stephanie 2nd Gen Pen Needle) BED PADS #30 ea 11/16/22 KOTEX #120 ea 11/16/22 WIPES #3 ea 11/16/22 naproxen 500 mg tablet 500 mg PO BID PRN pain 7 days #14 03/19/23 tabs oxycodone 5 mg tablet 5 mg PO TID PRN pain 3 days #9 tabs 03/19/23 prednisone 20 mg tablet 40 mg (2 x 20 mg) PO DAILY 5 days 03/19/23 #10 tabs diclofenac sodium 1 % topical gel 4 g topical QID #100 grams 04/03/23 (Arthritis Pain (diclofenac)) lovastatin 20 mg tablet 20 mg PO DAILY 30 days #30 tabs 04/08/23 omega-3 fatty acids 1,000 mg 1,000 mg PO DAILY #90 caps 04/25/23 capsule metformin 500 mg tablet,extended 1,000 mg (2 x 500 mg) PO BID 90 05/07/23 release 24 hr days #360 tabs ezetimibe 10 mg tablet 10 mg PO DAILY #90 tabs 05/11/23 fluticasone propionate 50 2 spray intranasal DAILY #16 grams 05/22/23 mcg/actuation nasal spray,suspension (Flonase Allergy Relief) meclizine 25 mg tablet 25 mg PO TID #30 tabs 05/22/23 blood sugar diagnostic (FreeStyle #50 ea 05/29/23 Lite Strips) levothyroxine 75 mcg tablet 75 mcg PO DAILY #90 tabs 06/20/23 albuterol sulfate 90 mcg/actuation 2 puff inhalation Q6H PRN for 07/14/23 aerosol inhaler (Ventolin HFA) wheezing #18 ea dulaglutide 0.75 mg/0.5 mL 0.75 mg (0.5 mL) subcut QWEEK #2 mL 08/02/23 subcutaneous [facility] albuterol sulfate 90 mcg/actuation 2 inh inhalation Q4-6H PRN 08/29/23 breath activated powder inhaler shortness of breath or wheezing #1 ea doxycycline hyclate 100 mg capsule 100 mg PO BID 10 days #20 caps 08/29/23 lidocaine 5 % topical patch 1 patch topical DAILY PRN pain #15 08/29/23 ea morphine 15 mg immediate release 15 mg PO Q6H PRN pain 5 days #10 08/29/23 tablet tabs prednisone 20 mg tablet 40 mg (2 x 20 mg) PO DAILY 5 days 08/29/23 #10 tabs Allergies Allergy/AdvReac Type Severity Reaction Status Date / Time atorvastatin [Lipitor] Allergy Unknown myalgia Verified 05/22/23 11:58 rosuvastatin [From Crestor] Allergy Unknown Myalgia Verified 05/22/23 11:58 acetaminophen [Tylenol] AdvReac Unknown Anaphylaxis Verified 05/22/23 11:58 Review of Systems Review of Systems: Constitutional : No Weight loss, No Fever, No Chills, + Fatigue, + Malaise ENT/Mouth : No sore throat, No Rhinorrhea Eyes: No Eye Pain, No Swelling, No Redness Cardiovascular : No Chest Pain, No SOB, No Dyspnea on Exertion, No Orthopnea, No Edema, No Palpitations Respiratory : + Cough, + Sputum, No Wheezing Gastrointestinal : No Nausea, No Vomiting, No Diarrhea, No Constipation, No abdominal Pain, No Hematochezia, No Melena Genitourinary : No Dysuria, No Urinary Frequency, No Hematuria, Musculoskeletal : + joint pain, + Myalgias, No Joint Swelling Skin : No Skin Lesions, No rash Neuro : No Weakness, No Numbness, No Dizziness, No Headache Psych : No Anxiety/Panic, No Depression All other systems reviewed and are negative Yes all other systems are reviewed and are negative [facility] Past Medical History Attestation statement: The following information was validated with the patient. Source: old records reviewed and nursing notes reviewed Medical History (Updated 08/29/23 @ 12:49 by WARREN Shi) COVID-19 virus infection Colon cancer screening Hypoglycemia Hypoglycemia unawareness associated with type 2 diabetes mellitus Screening for osteoporosis Multinodular goiter Mammogram declined Colonoscopy refused Degenerative disc disease, cervical Chondrocalcinosis Anxiety and depression Asthma Osteoarthritis Carpal tunnel syndrome of right wrist Serum potassium elevated B12 deficiency Renal stones Type 2 diabetes mellitus with diabetic polyneuropathy Hyperlipidemia LDL goal <100 Hypothyroid Surgical History History of cataract surgery Hx of lithotripsy Hx of wisdom tooth extraction Hx of vaginal hysterectomy Hx of bilateral breast reduction surgery Family History Family History Father Heart disease Hypertension Myocardial infarction CVD (cardiovascular disease) Mother Hypertension Type II diabetes mellitus Daughter No problems noted. Sister In good health Sister In good health Brother No problems noted. Brother No problems noted. Brother No problems noted. Social History Social History Household Members: None Housing: Apartment Alcohol intake: never Patient Tobacco Use Status: Never used Tobacco Smoked in Last 30 Days: No e-Cigarette/Vaping Use: Never Used Second Hand Smoke Exposure: No Use of substances other than those prescribed or required for medical reasons: No Advance Directives: Yes Advance Directives Information Provided: Yes Advance Directives on File: No Current occupational status: retired Cognitive needs: No Hearing needs: No Vision needs: Yes Physical Exam ED Vital Signs: Vital Signs - 24 hr 08/29/23 10:09 08/29/23 11:41 Temperature 98.9 F Pulse Rate 74 73 Respiratory Rate 18 20 Blood Pressure 127/64 139/70 Pulse Oximetry 100 100 Oxygen Delivery Method Room Air Room Air BMI result Body Mass Index 17.9 vss Appearance: Alert.? Oriented X3.? No acute distress.? Head: Normocephalic, atraumatic, no step-offs or deformities Eyes: Pupils equal, round and reactive to light.? ENT: Pharynx normal.? Neck: Normal inspection.? Neck supple.? CVS: Normal heart rate and rhythm.? Pulses normal.? Respiratory: No respiratory distress.? Breath sounds pain expiratory wheezing bilaterally..? Abdomen: Soft and nontender.? Skin: Skin warm and dry.? Normal skin color.? Normal skin turgor.? Extremities: No lower extremity edema.? No calf ttp. Global weakness + tenderness to palpation to right ASIS and right lumbar paraspinous muscles. No midline tenderness Neuro: Oriented X 3.? No motor deficit.? No sensory deficit. CN 2-12 intac. No saddle paresthesias. Ambualtory steady gait normal coordination Course Reevaluation(s) Reevaluation #1: CBC unremarkable. Chemistry no acute findings requiring intervention. Repeat negative, EKG nonischemic unlikely ACS. Chest x-ray, flu/COVID/RSV pending. Time: 11:06 Reevaluation #2: X-ray of hip with osteoarthritis. Chest x-ray no active disease. Flu COVID/RSV negative. Patient will get an albuterol inhaler prior to leaving and will be discharged home with treatment for bronchitis. Educated patient on diagnosis and treatment plan, answered all question, patient verbalizes understanding. At this time patient will be discharged home, advised to return with new or worsening symptoms. Educated on worrisome signs and symptoms and when to return. At this time I feel comfortable discharge home. Time: 12:51 Medications Administered Discontinued Medications Generic Name Dose Route Start Last Admin Trade Name Ara PRN Reason Stop Dose Admin Lidocaine 2 patch 08/29/23 11:01 08/29/23 11:44 Lidocaine 4 % Patch Adh..Patch TRANSDERMA 08/29/23 11:02 2 patch ONCE ONE Administration Protocol Morphine Sulfate 15 mg 08/29/23 11:01 08/29/23 11:44 Morphine Sulfate Immed Release 15 Mg Tablet PO 08/29/23 11:02 15 mg ONCE ONE Administration Medical Decision Making Medical Decision Making [facility] Narrative: 1043 72 year old female presents w/ cough X 1.5 week and hip and back pain X few weeks worsening. + tenderness to palpation to right ASIS and right lumbar paraspinous muscles. No midline tenderness. No saddle paresthesias. Expiratory wheezing b/l. PE consistent with viral illness versus bronchitis. Unlikely pulmonary embolism, ACS, dissection, acute respiratory distress. Right hip pain likely musculoskeletal, versus arthritis versus bursitis, and likely right lumbar paraspinous muscle spasms unlikely cauda equina, cord compression, epidural abscess. Plan- labs, ua, chest Differential Diagnosis Differential Diagnoses: The differential diagnosis associated with the presentation includes PE consistent with viral illness versus bronchitis. Unlikely pulmonary embolism, ACS, dissection, acute respiratory distress. Right hip pain likely musculoskeletal, versus arthritis versus bursitis, and likely right lumbar paraspinous muscle spasms unlikely cauda equina, cord compression, epidural abscess. Admission/Observation Consideration of admission/observation: Escalation of care including admission/observation considered Lab Data [facility] Lab Attestation statement: I reviewed the patient's lab results. 08/29/23 10:30 08/29/23 10:30 Labs: Lab Results 08/29/23 08/29/23 Range/Units 10:30 11:02 WBC 8.3 (4.8-10.8) X10*3/uL RBC 5.04 (4.20-5.50) X10*6/uL Hgb 13.6 (12.0-16.0) g/dl Hct 39.9 (37.0-47.0) % MCV 79.2 L (80.0-98.0) fL MCH 27.0 (27.0-33.0) pg MCHC 34.1 (31.0-35.0) g/dl RDW 14.6 (11.0-16.0) % Plt Count 394 (160-400) X10*3/uL MPV 8.8 L (9.4-12.3) fL Immature Gran % (Auto) 0.5 H (0.0-0.4) % Neut % (Auto) 61.7 (45-73) % Lymph % (Auto) 28.7 (20-40) % [place] % (Auto) 7.0 (2-11) % Eos % (Auto) 1.6 (0-4) % Baso % (Auto) 0.5 (0-2) % Lymph # (Auto) 2.4 (1.2-4.9) X10*3/uL [place] # (Auto) 0.6 (0.1-1.2) X10*3/uL Eos # (Auto) 0.1 (0.0-0.4) X10*3/uL Baso # (Auto) 0.0 (0.0-0.2) X10*3/uL Abs Immat Gran (auto) 0.04 H (0.00-0.03) X10*3/uL Absolute Neuts (auto) 5.2 (2.0-8.3) x10*3/uL Absolute Nucleated RBC 0.000 (0.0-0.012) X10*3/uL Nucleated RBC % (auto) 0.0 (0.0-0.2) /100WBC PT 12.9 (11.1-13.3) SEC INR 1.1 (0.9-1.1) Sodium 137 (135-145) mmol/L Potassium 4.6 (3.3-5.1) mmol/L Chloride 105 (96-108) mmol/L Carbon Dioxide 24 (22-29) mmol/L Anion Gap 13 (12-20) BUN 20 H (9-16) mg/dL Creatinine 1.24 (0.5-1.4) mg/dL Estim Creat Clear Calc 29.2 Estimated GFR 43 Random Glucose 184 H (60-115) mg/dL Calcium 10.8 H (8.4-10.2) mg/dL Magnesium 1.8 (1.6-2.6) mg/dL Total Bilirubin 0.4 (0.0-1.0) mg/dL Direct Bilirubin 0.1 (0.0-0.5) mg/dL AST 23 (5-31) U/L ALT 21 (0-31) U/L Alkaline Phosphatase 63 (39-117) U/L Troponin I High Sens < 2.7 (<3.5-17.0) ng/L Total Protein 8.6 H (6.5-8.0) g/dL Albumin 4.5 (3.5-5.0) g/dL Lipase 73 (8-78) U/L Influenza Type A (PCR) NEGATIVE (Negative) Influenza Type B (PCR) NEGATIVE (Negative) RSV RNA Qual (PCR) NEGATIVE (Negative) SARS-CoV-2 RNA (RT-PCR) NEGATIVE (Negative) Independent Interpretation I performed an independent interpretation of an: EKG (Ventricular rate of 81, ND normal, QRS normal, QT/QTC normal EKG showing normal sinus rhythm with left axis deviation and low voltage QRS no ST elevations or inversions concerning for acute ischemia) and Plain X-Ray Radiology Impression Discussion of test interpretation with radiology: I have reviewed the radiologist's reading. Critical Care Time Critical Care Time Critical Care Time: No Discharge Plan Discharge Clinical Impression: Acute bronchitis, OA (osteoarthritis) of hip Patient Disposition: Home, Self-Care Instructions: Acute Bronchitis (ED), Wheezing (ED) Additional Instructions: Take your medications as prescribed. If you were prescribed antibiotics today, it is important that you take your medication to their entirety, do not skip any doses, do not finish them early. Follow-up with your primary care provider this week. Return to the emergency department with new or worsening symptoms. Such as fevers, chills, chest pain, shortness of breath, nausea, vomiting, dizziness, headache, vision changes, lethargy In case of emergency call 911 A narcotic has been sent to your pharmacy please take this as prescribed. Do not take more than the prescribed dose. Narcotic medications can cause addiction. Please do not mix them with alcohol. Do not take them while driving or operating machinery. Do not take them with any other narcotics. Do not share them with friends or family. They can cause constipation. Take them only for severe pain. Prescriptions: New doxycycline hyclate 100 mg capsule 100 mg PO BID 10 Days Qty: 20 0RF prednisone 20 mg tablet 40 mg PO DAILY 5 Days Qty: 10 0RF albuterol sulfate 90 mcg/actuation aerosol powdr breath activated 2 inh inhalation Q4-6H PRN (Reason: shortness of breath or wheezing) Qty: 1 0RF lidocaine 5 % adhesive patch,medicated 1 patch topical DAILY PRN (Reason: pain) Qty: 15 0RF Rx Instructions: leave on most painful area for up to 12 hrs morphine 15 mg tablet 15 mg PO Q6H PRN (Reason: pain) 5 Days Qty: 10 0RF Rx Instructions: Partial Fill upon patient request. No Action omega-3 fatty acids [Fish Oil Concentrate] 1,000 mg capsule 1,000 mg PO DAILY Qty: 90 0RF Cepacol Sore Throat (josé miguel-men) 15-2.6 mg lozenge 1 isis mucous membrane Q2-4H PRN (Reason: sore throat) Qty: 16 1RF (DME) blood-glucose meter [FreeStyle Lite Meter] Kit See Rx Instructions .ROUTE .MEDSUPPLY Qty: 1 0RF Rx Instructions: As directed cyanocobalamin (vitamin B-12) 1,000 mcg tablet 1,000 mcg PO DAILY Qty: 90 3RF (DME) pen needle, diabetic [BD Stephanie 2nd Gen Pen Needle] 32 gauge x 5/32 needle See Rx Instructions .ROUTE .MEDSUPPLY Qty: 90 3RF Rx Instructions: As directed once daily (DME) lancets [FreeStyle Lancets] 28 gauge misc See Rx Instructions .ROUTE .MEDSUPPLY Qty: 100 6RF Rx Instructions: As directed twice a day folic acid 1 mg tablet 1 mg PO DAILY Qty: 90 2RF citalopram 20 mg tablet 20 mg PO DAILY 90 Days Qty: 90 2RF gabapentin 300 mg capsule 300 mg PO BEDTIME Qty: 30 4RF (DME) WIPES See Rx Instructions .Route .MEDSUPPLY Qty: 3 12RF Rx Instructions: Wipes 3/month Kotex 4x's a day bed pads 1 a day (DME) KOTEX See Rx Instructions .Route .MEDSUPPLY Qty: 120 12RF Rx Instructions: As directedWipes 3/month Kotex 4x's a day bed pads 1 a day (DME) BED PADS See Rx Instructions .Route .MEDSUPPLY Qty: 30 12RF Rx Instructions: Wipes 3/month Kotex 4x's a day bed pads 1 a day lovastatin 20 mg tablet 20 mg PO DAILY 30 Days Qty: 30 3RF omega-3 fatty acids 1,000 mg capsule 1,000 mg PO DAILY Qty: 90 0RF metformin 500 mg tablet extended release 24 hr 1,000 mg PO BID 90 Days Qty: 360 2RF ezetimibe 10 mg tablet 10 mg PO DAILY Qty: 90 1RF (DME) FreeStyle Lite Strips Strip See Rx Instructions .ROUTE .MEDSUPPLY Qty: 50 11RF Rx Instructions: twice a day levothyroxine 75 mcg tablet 75 mcg PO DAILY Qty: 90 0RF albuterol sulfate [Ventolin HFA] 90 mcg/actuation HFA aerosol inhaler 2 puff inhalation Q6H PRN (Reason: for wheezing) Qty: 18 0RF Trulicity 0.75 mg/0.5 mL pen injector 0.75 mg subcut QWEEK Qty: 2 2RF prednisone 20 mg tablet 40 mg PO DAILY 5 Days Qty: 10 0RF naproxen 500 mg tablet 500 mg PO BID PRN (Reason: pain) 7 Days Qty: 14 0RF oxycodone 5 mg tablet 5 mg PO TID PRN (Reason: pain) 3 Days Qty: 9 0RF Rx Instructions: Partial Fill upon patient request. diclofenac sodium [Arthritis Pain (diclofenac)] 1 % gel 4 g topical QID Qty: 100 4RF Rx Instructions: apply to single knee, ankle, foot; for foot includes sole/toes/top of foot meclizine 25 mg tablet 25 mg PO TID Qty: 30 2RF fluticasone propionate [Flonase Allergy Relief] 50 mcg/actuation spray,suspension 2 spray intranasal DAILY Qty: 16 2RF Rx Instructions: administer into each nostril hydroxyzine HCl 10 mg tablet 10 mg PO BID clonazepam 0.5 mg tablet 0.5 mg PO DAILY PRN magnesium 250 mg tablet 250 mg PO DAILY Referrals: Po,Jennifer Wakefield MD [Primary Care Provider] - 2 days Stand Alone Forms: Work/School Release
[2023-08-29 10:45] LABS: INTERNATIONAL NORM RATIO 1.1 (0.9-1.1); Prothrombin Time 12.9 SEC (11.1-13.3)
[2023-08-29 10:55] LABS: Alanine Aminotransferase 21 U/L (0-31); Albumin Level 4.5 g/dL (3.5-5.0); Alkaline Phosphatase 63 U/L (39-117); Anion Gap 13 (12-20); Aspartate Amino Transferase 23 U/L (5-31); Bilirubin Direct 0.1 mg/dL (0.0-0.5); Bilirubin Total 0.4 mg/dL (0.0-1.0); Blood Urea Nitrogen 20 mg/dL (9-16); Calcium 10.8 mg/dL (8.4-10.2); Carbon Dioxide 24 mmol/L (22-29); Chloride 105 mmol/L (96-108); Creatinine Clr Calc Pharmacy 29.2; Estimated Glomerular Filt Rate 43; Glucose Random 184 mg/dL (60-115); Lipase 73 U/L (8-78); Magnesium 1.8 mg/dL (1.6-2.6); Potassium 4.6 mmol/L (3.3-5.1); Sodium 137 mmol/L (135-145); Total Protein 8.6 g/dL (6.5-8.0)
[2023-08-29 11:11] LABS: Troponin-I High Sensitivity < 2.7 ng/L (<3.5-17.0)
[2023-08-29 11:41] VITALS: BP 139/70; PULSE 73; RESP 20; O2SAT 100
[2023-08-29] MEDS: Lidocaine 4 % Patch ADH..PATCH 2 PATCH TRANSDERMA (11:44)
[2023-08-29] MEDS: Morphine Sulfate Immed Release 15 MG TABLET PO (11:44)
[2023-08-29 11:46] LABS: Influenza A PCR NEGATIVE (Negative); Influenza B PCR NEGATIVE (Negative); Resp Syncy Virus RNA Qual PCR NEGATIVE (Negative); SARS COV2 PCR INHOUSE NEGATIVE (Negative)
[2023-08-29] MEDS: Albuterol Sulfate 90 MCG 8 GM INHALER 4 PUFF INHALE (12:58)
[2023-08-29 12:59] VITALS: PULSE 72; RESP 16; O2SAT 99
== END 2023-08-29 14:23 | disposition home or self-care (01) ==
PROVIDERS: Physician Assistant; Emergency Provider Emergency Medicine; PCP Internal Medicine
DX: J20.9 Acute bronchitis, unspecified (principal); M16.11 Unilateral primary osteoarthritis, right hip; R07.89 Other chest pain; M25.551 Pain in right hip; Z79.899 Other long term (current) drug therapy; Z20.828 Contact with and (suspected) exposure to other viral communicable diseases; Z20.822 Contact with and (suspected) exposure to COVID-19
CPT/HCPCS: 0241U; 36415; 71045; 73502; 80048; 80076; 83690; 83735; 84484; 85025; 85610; 93005; 94640; 99284; 99285

== ENCOUNTER → 2023-08-29 09:55 | Outpatient (BNV) | payer OTHER, SELFPAY | PROVIDERS: Emergency Provider Emergency Medicine; PCP Internal Medicine; Visit Provider Internal Medicine | DX: R07.89 Other chest pain (principal) | CPT/HCPCS: 93010 ==

== ENCOUNTER 2023-09-06 10:53 | Outpatient (AMB) | payer OTHER, SELFPAY ==
[2023-09-06 10:57] VITALS: BP 140/78; PULSE 58; O2SAT 99; BMI 20.3
--- NOTE | 2023-09-06 10:57 | MHC.PC.OV ---
Vital Signs 09/06/23 10:57 Height 5 ft 2 in Weight 111 lb 0.4 oz BMI 20.3 BP 140/78 H Blood Pressure Location Lt brachial Position Sitting Pulse 58 Pulse Source Pulse Oximeter Pulse Oximetry (%) 99 Oxygen Delivery Method Room Air Intake Visit Reasons: 3mth f/u Flame Gouger Required: No Allergies atorvastatin [Lipitor] Allergy (Unknown, Verified 09/06/23 11:39) myalgia rosuvastatin [From Crestor] Allergy (Unknown, Verified 09/06/23 11:39) Myalgia acetaminophen [Tylenol] Adverse Reaction (Unknown, Verified 09/06/23 11:39) Anaphylaxis Tobacco use date assessed: 09/06/23 Fall risk assessment: No Falls in past year Last assessed Fall Risk: 09/06/23 HPI 3mth f/u HPI Details 72-year-old female with uncontrolled diabetes mellitus hypercholesterolemia hypothyroidism and moderate depressive disorder last seen in May 2023. Patient was recently in the emergency room August 2023 for productive cough treated for bronchitis with doxycycline. complains of pain on the R hip area and also on the R upper back, deny fall ore trauma. chest xray is negative , deny any fever. Discussed with the patient that with the steroid being given that the sugars have gone high and the hemoglobin A1c right now is very high at 8.7. Patient was also asking for injections under right hip but discussed with the patient that I can do the referral to orthopedics. With the pain going to the upper back no rashes noted no redness muscle relaxant to be given. [facility] Medical History (Updated 09/06/23 @ 12:14 by Jennifer Moody MD) OA (osteoarthritis) of hip COVID-19 virus infection Colon cancer screening Hypoglycemia Hypoglycemia unawareness associated with type 2 diabetes mellitus Screening for osteoporosis Multinodular goiter Mammogram declined Colonoscopy refused Degenerative disc disease, cervical Chondrocalcinosis Anxiety and depression Asthma Osteoarthritis Carpal tunnel syndrome of right wrist Serum potassium elevated B12 deficiency Renal stones Type 2 diabetes mellitus with diabetic polyneuropathy Hyperlipidemia LDL goal <100 Hypothyroid Surgical History History of cataract surgery Hx of lithotripsy Hx of wisdom tooth extraction Hx of vaginal hysterectomy Hx of bilateral breast reduction surgery Family History Father Heart disease Hypertension Myocardial infarction CVD (cardiovascular disease) Mother Hypertension Type II diabetes mellitus Daughter No problems noted. Sister In good health Sister In good health Brother No problems noted. Brother No problems noted. Brother No problems noted. Social History Household Members: None Housing: Apartment Alcohol intake: never Patient Tobacco Use Status: Never used Tobacco e-Cigarette/Vaping Use: Never Used Second Hand Smoke Exposure: No Current occupational status: retired Cognitive needs: No Hearing needs: No Vision needs: Yes Questionnaire PHQ-9 Over the last 2 weeks, how often have you been bothered by any of the following problems? 1. Little interest or pleasure in doing things: several days 2. Feeling down, depressed, or hopeless: several days 3. Trouble falling or staying asleep, or sleeping too much: several days 4. Feeling tired or having little energy: not at all 5. Poor appetite or overeating: not at all 6. Feeling bad about yourself - or that you are a failure or have let yourself or your family down: not at all 7. Trouble concentrating on things, such as reading the newspaper or watching television: not at all 8. Moving or speaking so slowly that other people could have noticed. Or the opposite - being so fidgety or restless that you have been moving around a lot more than usual: not at all 9. Thoughts that you would be better off or of hurting yourself in some way: not at all Total score: 3 Depression Screening Interpretation: Positive Depression Screening Follow-up: Existing condition Depression Screening Done: Yes Source: Developed by Drs. Matheus Cox, Shae Armas, Linus Cheng and colleagues, with an educational roxana from [employer]. Thrive Questionnaire Date Thrive assessed: 10/08/22 AUDIT C Alcohol Use Questionnaire (AUDIT-C) 1. How often do you have a drink containing alcohol?: Never 2. How many drinks containing alcohol do you have on a typical day when you are drinking?: 1 or 2 3. How often do you have six or more drinks on one occasion?: Never Total Score: 0 DENISHA-7 AMB Questionnaire DENISHA-7 Date DENISHA - 7 assessed: 09/06/23 Feeling nervous, anxious, or on edge: 1 = Several days Not being able to stop or control worryin = Several days Worrying too much about different things: 1 = Several days Trouble relaxin = Several days Being so restless that it is hard to sit still: 0 = Not at all Becoming easily annoyed or irritable: 0 = Not at all Feeling afraid as if something awful might happen: 0 = Not at all Total DENISHA-7 score (0-4 normal; 5-9 mild; 10-14 moderate; 15-21 severe): 4 Source: Developed by Drs. Matheus Cox, Shae Armas, Linus Cheng and colleagues, with an educational roxana from [employer]. Physical exam (Primary Care) Vital Signs: Last Vital Signs Pulse 58 09/06/23 10:57 BP 140/78 H 09/06/23 10:57 Pulse Ox 99 09/06/23 10:57 Oxygen Delivery Method Room Air 09/06/23 10:57 BMI result Body Mass Index 20.3 Tobacco/Smoking Status: Tobacco use Status Tobacco use date assessed 09/06/23 09/06/23 10:58 Patient Tobacco Use Status Never used Tobacco 09/06/23 10:58 e-Cigarette/Vaping Use Never Used 09/06/23 10:58 PHQ-9: PHQ-9 Score PHQ-9: Total score 3 09/06/23 11:45 Depression Screening Interpretation: Positive Depression Screening Follow-up: Existing condition Thrive Assessment: Date of Thrive Assessment Date Thrive assessed 10/08/22 09/06/23 10:58 Const General: alert; No acute distress Eyes Conjunctivae: conjunctivae normal Resp Auscultation: clear to auscultation bilaterally Cardio Rate: regular rate Rhythm: regular rhythm GI Inspection: Yes normal to inspection Extrem General: Yes normal to inspection and No edema Results AMB Hemoglobin A1c AMB Hemoglobin A1c 8.7 % Last Edit by SILVESTRE Fishman on 09/06/23 11:45 Results Reviewed Results Reviewed: Laboratory Last Values Hgb A1c (Clinic) 8.7 % (4.0-6.0) H 09/06/23 10:16 Assessment and Plan Assessment & Plan (1) Acute bronchitis: Code(s): J20.9 - Acute bronchitis, unspecified Plan: Resolved (2) Type 2 diabetes mellitus with hyperglycemia: Comment: Dr. Dick Code(s): E11.65 - Type 2 diabetes mellitus with hyperglycemia Plan: Decrease the amount of carbohydrate intake, pasta, bread, rice and potatoes are all sugar and that is aside from all the sweet stuff, remember that fruits are good but they are Sweet also. Hemoglobin A1c goal of less than 7.0. Patient was given steroids last month and so will continue monitoring for now as the A1c of the patient before has been good (3) OA (osteoarthritis) of hip: Comment: Right Code(s): M16.9 - Osteoarthritis of hip, unspecified Plan: Discussed on being active will do a referral to ortho and discussed the reality of arthritis. (4) Upper back pain on right side: Code(s): M54.9 - Dorsalgia, unspecified Plan: Muscle relaxants sent in and discussed about side effects of the medication. Orders: Orders AMB Hemoglobin A1c Today E11.65 - Type 2 diabetes mellitus with hyperglycemia Referrals Orthopedics Referral M16.9 - Osteoarthritis of hip, unspecified Medications: New cyclobenzaprine 5 mg PO TID PRN 20 tabs 1RF muscle spasm M54.9 - Dorsalgia, unspecified Coding Level of Care Code Est Pt Level 4 (95578) Diagnoses Acute bronchitis J20.9 Type 2 diabetes mellitus with hyperglycemia E11.65 OA (osteoarthritis) of hip M16.9 Upper back pain on right side M54.9
== END 2023-09-06 12:25 | disposition home or self-care (01) ==
PROVIDERS: PCP Internal Medicine; Visit Provider Internal Medicine
DX: J20.9 Acute bronchitis, unspecified (principal); E11.65 Type 2 diabetes mellitus with hyperglycemia; M16.9 Osteoarthritis of hip, unspecified; M54.9 Dorsalgia, unspecified
CPT/HCPCS: 83036; 99214

== ENCOUNTER 2023-12-11 11:03 | Outpatient (AMB) | payer OTHER, SELFPAY ==
--- NOTE | 2023-12-11 11:10 | A.OFFPC_ITS ---
Vital Signs 12/11/23 11:11 Height 5 ft 2 in Weight 114 lb BMI 20.8 BP 116/62 Blood Pressure Location Lt brachial Position Sitting Pulse 68 Pulse Source Pulse Oximeter Pulse Oximetry (%) 98 Oxygen Delivery Method Room Air Intake Visit Reasons: DM Allergies atorvastatin [Lipitor] Allergy (Unknown, Verified 12/11/23 11:11) myalgia rosuvastatin [From Crestor] Allergy (Unknown, Verified 12/11/23 11:11) Myalgia acetaminophen [Tylenol] Adverse Reaction (Unknown, Verified 12/11/23 11:11) Anaphylaxis Tobacco use date assessed: 12/11/23 Fall risk assessment: No Falls in past year Last assessed Fall Risk: 12/11/23 Dental Screening Dental Screen Date: 12/11/23 Did you have a dental visit in the last 12 months?: Yes Did you have a dental problem in the last 6 months where you did not have access to dental care?: No Was dental information given to patient?: Patient has dentist HPI DM HPI Details 73-year-old female with uncontrolled jose betes mellitus depression hypercholesterolemia hypothyroidism coming in for follow-up. Last seen in September 2023. Hemoglobin A1c at that time was 8.7. Colon test up-to-date. Declined mammogram. Last cholesterol test was done in December 2022 which was elevated. Patient had statin intolerance. [facility] Medical History (Updated 09/06/23 @ 12:14 by Jennifer Moody MD) OA (osteoarthritis) of hip COVID-19 virus infection Colon cancer screening Hypoglycemia Hypoglycemia unawareness associated with type 2 diabetes mellitus Screening for osteoporosis Multinodular goiter Mammogram declined Colonoscopy refused Degenerative disc disease, cervical Chondrocalcinosis Anxiety and depression Asthma Osteoarthritis Carpal tunnel syndrome of right wrist Serum potassium elevated B12 deficiency Renal stones Type 2 diabetes mellitus with diabetic polyneuropathy Hyperlipidemia LDL goal <100 Hypothyroid Surgical History History of cataract surgery Hx of lithotripsy Hx of wisdom tooth extraction Hx of vaginal hysterectomy Hx of bilateral breast reduction surgery Family History Father Heart disease Hypertension Myocardial infarction CVD (cardiovascular disease) Mother Hypertension Type II diabetes mellitus Daughter No problems noted. Sister In good health Sister In good health Brother No problems noted. Brother No problems noted. Brother No problems noted. Social History Household Members: None Housing: Apartment Alcohol intake: never Patient Tobacco Use Status: Never used Tobacco e-Cigarette/Vaping Use: Never Used Second Hand Smoke Exposure: No Current occupational status: retired Cognitive needs: No Hearing needs: No Vision needs: Yes Questionnaire PHQ-9 Over the last 2 weeks, how often have you been bothered by any of the following problems? 1. Little interest or pleasure in doing things: several days 2. Feeling down, depressed, or hopeless: several days 3. Trouble falling or staying asleep, or sleeping too much: several days 4. Feeling tired or having little energy: not at all 5. Poor appetite or overeating: not at all 6. Feeling bad about yourself - or that you are a failure or have let yourself or your family down: not at all 7. Trouble concentrating on things, such as reading the newspaper or watching television: not at all 8. Moving or speaking so slowly that other people could have noticed. Or the opposite - being so fidgety or restless that you have been moving around a lot more than usual: not at all 9. Thoughts that you would be better off or of hurting yourself in some way: not at all Total score: 3 Depression Screening Interpretation: Positive Depression Screening Follow-up: Existing condition Depression Screening Done: Yes Source: Developed by Drs. Matheus Cox, Shae Armas, Linus Cheng and colleagues, with an educational roxana from [employer]. Thrive Questionnaire Date Thrive assessed: 12/11/23 I am a: Patient What is your living situation today?: I have a steady place to live Within the past 12 months, did the food you bought not last and you didn't have the money to get more?: Never true Within the past 12 months, did you worry whether your food would run out before you got money to buy more?: Never true Do you have trouble paying for medicines?: No Do you have trouble getting transportation to medical appointments?: No Do you have trouble paying your heating and electricity bill?: No Do you have trouble taking care of your child, family member or friend?: No Do you have trouble with day-to-day activities such as bathing, preparing meals, shopping, managing finances, etc.?: No Are you currently unemployed and looking for a job?: No Are you interested in more education?: No Currently or been in a relationship where the following occur: no concerns reported THRIVE Score: 0 AUDIT C Alcohol Use Questionnaire (AUDIT-C) 1. How often do you have a drink containing alcohol?: Never 2. How many drinks containing alcohol do you have on a typical day when you are drinking?: 1 or 2 3. How often do you have six or more drinks on one occasion?: Never Total Score: 0 DENISHA-7 AMB Questionnaire DENISHA-7 Date DENISHA - 7 assessed: 12/11/23 Feeling nervous, anxious, or on edge: 1 = Several days Not being able to stop or control worryin = Several days Worrying too much about different things: 1 = Several days Trouble relaxin = Several days Being so restless that it is hard to sit still: 0 = Not at all Becoming easily annoyed or irritable: 0 = Not at all Feeling afraid as if something awful might happen: 0 = Not at all Total DENISHA-7 score (0-4 normal; 5-9 mild; 10-14 moderate; 15-21 severe): 4 Source: Developed by Drs. Matheus Cox, Shae Armas, Linus Cheng and colleagues, with an educational roxana from [employer]. Physical exam (Primary Care) Vital Signs: Last Vital Signs Pulse 68 12/11/23 11:11 BP 116/62 12/11/23 11:11 Pulse Ox 98 12/11/23 11:11 Oxygen Delivery Method Room Air 12/11/23 11:11 BMI result Body Mass Index 20.8 Tobacco/Smoking Status: Tobacco use Status Tobacco use date assessed 12/11/23 12/11/23 11:14 Patient Tobacco Use Status Never used Tobacco 12/11/23 11:14 e-Cigarette/Vaping Use Never Used 12/11/23 11:14 PHQ-9: PHQ-9 Score PHQ-9: Total score 3 12/11/23 11:14 Depression Screening Interpretation: Positive Depression Screening Follow-up: Existing condition Thrive Assessment: Date of Thrive Assessment Date Thrive assessed 12/11/23 12/11/23 11:14 Currently or been in a relationship where the following occur: no concerns reported Const General: alert; No acute distress Eyes Conjunctivae: conjunctivae normal Resp Auscultation: clear to auscultation bilaterally Cardio Rate: regular rate Rhythm: regular rhythm GI Inspection: Yes normal to inspection Extrem General: Yes normal to inspection and No edema Results AMB Hemoglobin A1c AMB Hemoglobin A1c 6.3 % Last Edit by Jia Benton CMA on 12/11/23 11 :30 Assessment and Plan Assessment & Plan (1) Type 2 diabetes mellitus with hyperglycemia: Comment: Dr. Dick Code(s): E11.65 - Type 2 diabetes mellitus with hyperglycemia Plan: Decrease the amount of carbohydrate intake, pasta, bread, rice and potatoes are all sugar and that is aside from all the sweet stuff, remember that fruits are good but they are Sweet also. Hemoglobin A1c goal of less than 7.0 patient on Trulicity 0.75 mg once a week metformin a 1000 mg twice a day (2) Moderate depressive disorder: Comment: Today's PHQ suggestive of moderate depression. Continue current regimen by PCP. Reinforced coping strategies and social support. Seek medical attention for any suicidal and/or homicidal ideations. [facility] Counseling Code(s): F32.1 - Major depressive disorder, single episode, moderate Plan: Continue with counseling and therapy citalopram and clonazepam (3) Asthma: Code(s): J45.909 - Unspecified asthma, uncomplicated Plan: Continue with inhaler as the (4) Hyperlipidemia LDL goal <100: Comment: Statin intolerant Code(s): E78.5 - Hyperlipidemia, unspecified Plan: Avoid fried foods, chicken skin, eggs, butter margarine, pastries and meat. Be it pork or beef they have a lot of cholesterol December 2022 last done patient is statin intolerant presently only on Zetia 10 mg once a day (5) Hypothyroid: Code(s): E03.9 - Hypothyroidism, unspecified Qualifiers: Hypothyroidism type: acquired Qualified Code(s): E03.9 - Hypothyroidism, unspecified Plan: Continue with thyroid medication advised blood work. Orders: Orders AMB Hemoglobin A1c Today Z13.9 - Encounter for screening, unspecified Complete Blood Count Auto Diff Today E11.65 - Type 2 diabetes mellitus with hyperglycemia Comprehensive Met. Panel Today E11.65 - Type 2 diabetes mellitus with hyperglycemia Thyroid Stimulating Hormone Today E11.65 - Type 2 diabetes mellitus with hyperglycemia Vitamin B12 and Folate Today E11.65 - Type 2 diabetes mellitus with hyperglycemia Creatinine Urine Today E11.65 - Type 2 diabetes mellitus with hyperglycemia Lipid Panel Today E11.65 - Type 2 diabetes mellitus with hyperglycemia, E78.00 - Pure hypercholesterolemia, unspecified Microalbumin, Random (w Creat) Today E11.65 - Type 2 diabetes mellitus with hyperglycemia Free T4 (Free Thyroxine) Today E11.65 - Type 2 diabetes mellitus with hyperglycemia Vitamin D 25-OH Total Today E11.65 - Type 2 diabetes mellitus with hypergly cemia Medications: Changed From lovastatin 20 mg PO DAILY 30 days 30 tabs 3RF E78.5 - Hyperlipidemia, unspecified To lovastatin 20 mg PO DAILY 90 days 90 tabs 3RF E78.5 - Hyperlipidemia, unspecified Refilled ezetimibe 10 mg PO DAILY 90 tabs 1RF E11.65 - Type 2 diabetes mellitus with hyperglycemia Coding Level of Care Code Est Pt Level 4 (77586) Diagnoses Type 2 diabetes mellitus with hyperglycemia E11.65 Moderate depressive disorder F32.1 Asthma J45.909 Hyperlipidemia LDL goal <100 E78.5 Acquired hypothyroidism E03.9 Hypothyroidism type: acquired
[2023-12-11 11:11] VITALS: BP 116/62; PULSE 68; O2SAT 98; BMI 20.8
== END 2023-12-11 11:44 | disposition home or self-care (01) ==
PROVIDERS: PCP Internal Medicine; Visit Provider Internal Medicine
DX: E11.65 Type 2 diabetes mellitus with hyperglycemia (principal); F32.1 Major depressive disorder, single episode, moderate; J45.909 Unspecified asthma, uncomplicated; E78.5 Hyperlipidemia, unspecified; E03.9 Hypothyroidism, unspecified
CPT/HCPCS: 83036; 99214

== ENCOUNTER 2024-02-11 08:48 | Emergency (ER) | payer OTHER, SELFPAY ==
--- NOTE | ~2024-02-11 | XR_ITS ---
EXAMINATION: XR KNEE, RIGHT CLINICAL INFORMATION: Fall last night. COMPARISON: None available. TECHNIQUE: 4 views right knee. FINDINGS: Bone alignment is normal. No fracture or dislocation. Degenerative meniscal calcification. Small osteophytes at the patellofemoral joint. Small osteophyte at the quadriceps tendon insertion to the patella. [id number] joint effusion. Atherosclerotic disease. XR/XR knee RT 4V IMPRESSION: Degenerative changes and [id number] joint effusion. Atherosclerotic disease.
[2024-02-11 09:10] VITALS: BP 138/68; PULSE 89; RESP 18; TEMP 37; O2SAT 99; BMI 21.2
[2024-02-11 10:34] VITALS: BP 155/79; PULSE 75; RESP 16; TEMP 37.1; O2SAT 98
--- NOTE | 2024-02-11 10:41 | PC.NURSE ---
a&ox4. vss and up to date. pt presents to the ED d/t unwitnessed fall at home. pt verbalizing she got up to use the bathroom in the middle of the night/tripped on rug. denies feeling dizzy/lightheaded. pt landed on right knee. swelling noted to kneecap. no redness/bruising noted. tender upon palpation. cms intact. peripheral pulses palpable. pt verbalizes slight numbness/tingling but states she has diabetic neuropathy. pt waiting to be seen by ED provider. no sob/wob noted. respirations even/unlabored. plan of care ongoing. call raza placed within reach.
--- NOTE | 2024-02-11 11:07 | ED.FALL ---
HPI - Fall General Chief Complaint: Fall Stated Complaint: fall 02/09, leg pain Time Seen by Provider: 02/11/24 10:49 Source: patient Mode of arrival: wheelchair Limitations: no limitations History of Present Illness ED Provider: Reji Nazario HPI Narrative: 73-year-old female with history of T2DM, hypothyroidism, anxiety, depression, OA of right hip presenting for evaluation after falling out of her bed last night and injuring her right knee. She reports that she fell out of her bed last night onto her knees and could not get up, +headstrike to right side of forehead, denies LOC, denies dizziness at time of fall. She is not on blood thinners per chart review. She yelled out to the hallway of her apartment until someone came to help her, her [employer] brought her here this morning. Her primary concern is pain and swelling of her right knee, her left knee hurts as well. MD complaint: fall Onset (ago): hour(s) (exact time unknown) Fall from: out of bed Fall witnessed: no Place fall occurred: home Loss of consciousness: none Prolonged down time: unclear Symptoms prior to fall: none Context: tripped/slipped Location of injury: head Location of injury - extremities: bilateral: knee Quality: throbbing Associated symptoms (after fall): unable to walk (due to knee pain) Related Data Home Medications ?Medication ?Instructions ?Recorded ?Confirmed clonazepam 0.5 mg tablet 0.5 mg PO DAILY PRN 07/04/20 05/22/23 hydroxyzine HCl 10 mg tablet 10 mg PO BID 07/04/20 05/22/23 magnesium 250 mg tablet 250 mg PO DAILY 07/04/20 05/22/23 Previous Rx's ?Medication ?Instructions ?Recorded Fish Oil Concentrate 1,000 mg 1,000 mg PO DAILY #90 caps 05/22/21 capsule (omega-3 fatty acids) blood-glucose meter (FreeStyle #1 ea 05/15/22 Lite Meter kit) citalopram 20 mg tablet 20 mg PO DAILY 90 days #90 tabs 11/15/22 lancets 28 gauge (FreeStyle #100 ea 11/15/22 Lancets) pen needle, diabetic 32 gauge x #90 ea 11/15/22 (BD Stephanie 2nd Gen Pen Needle) naproxen 500 mg tablet 500 mg PO BID PRN pain 7 days #14 03/19/23 tabs oxycodone 5 mg tablet 5 mg PO TID PRN pain 3 days #9 tabs 03/19/23 diclofenac sodium 1 % topical gel 4 g topical QID #100 grams 04/03/23 (Arthritis Pain (diclofenac)) metformin 500 mg tablet,extended 1,000 mg (2 x 500 mg) PO BID 90 05/07/23 release 24 hr days #360 tabs fluticasone propionate 50 2 spray intranasal DAILY #16 grams 05/22/23 mcg/actuation nasal spray,suspension (Flonase Allergy Relief) meclizine 25 mg tablet 25 mg PO TID #30 tabs 05/22/23 blood sugar diagnostic (FreeStyle #50 ea 05/29/23 Lite Strips) albuterol sulfate 90 mcg/actuation 2 inh inhalation Q4-6H PRN 08/29/23 breath activated powder inhaler shortness of breath or wheezing #1 ea lidocaine 5 % topical patch 1 patch topical DAILY PRN pain #15 08/29/23 ea morphine 15 mg immediate release 15 mg PO Q6H PRN pain 5 days #10 08/29/23 tablet tabs shower head #1 ea 10/24/23 omega-3 fatty acids 1,000 mg 1,000 mg PO DAILY #90 caps 10/25/23 capsule cyclobenzaprine 5 mg tablet 5 mg PO TID PRN muscle spasm #20 10/31/23 tabs gabapentin 300 mg capsule 300 mg PO BEDTIME #30 caps 11/04/23 cane #1 ea 11/11/23 commode #1 ea 11/11/23 cyanocobalamin (vitamin B-12) 1,000 mcg PO DAILY #90 tabs 11/15/23 1,000 mcg tablet folic acid 1 mg tablet 1 mg PO DAILY #90 tabs 11/22/23 ezetimibe 10 mg tablet 10 mg PO DAILY #90 tabs 12/11/23 lovastatin 20 mg tablet 20 mg PO DAILY 90 days #90 tabs 12/11/23 levothyroxine 75 mcg tablet 75 mcg PO DAILY #90 tabs 12/23/23 BED PADS #30 ea 12/30/23 KOTEX #120 ea 12/30/23 WIPES #3 ea 12/30/23 albuterol sulfate 90 mcg/actuation 2 puff inhalation Q6H PRN for 01/20/24 aerosol inhaler (Ventolin HFA) wheezing #18 ea dulaglutide 0.75 mg/0.5 mL 0.75 mg (0.5 mL) subcut QWEEK #2 mL 01/24/24 subcutaneous pen injector (Trulicity) Allergies Allergy/AdvReac Type Severity Reaction Status Date / Time acetaminophen [Tylenol] Allergy Unknown Anaphylaxis Verified 02/11/24 09:15 atorvastatin [Lipitor] Allergy Unknown myalgia Verified 02/11/24 09:15 rosuvastatin [From Crestor] Allergy Unknown Myalgia Verified 02/11/24 09:15 Review of Systems Review of Systems: Yes all other systems are reviewed and are negative [facility] [place] Past Medical History Medical History (Updated 02/11/24 @ 12:06 by WARREN Perez) OA (osteoarthritis) of hip COVID-19 virus infection Colon cancer screening Hypoglycemia Hypoglycemia unawareness associated with type 2 diabetes mellitus Screening for osteoporosis Multinodular goiter Mammogram declined Colonoscopy refused Degenerative disc disease, cervical Chondrocalcinosis Anxiety and depression Asthma Osteoarthritis Carpal tunnel syndrome of right wrist Serum potassium elevated B12 deficiency Renal stones Type 2 diabetes mellitus with diabetic polyneuropathy Hyperlipidemia LDL goal <100 Hypothyroid Surgical History History of cataract surgery Hx of lithotripsy Hx of wisdom tooth extraction Hx of vaginal hysterectomy Hx of bilateral breast reduction surgery Family History Family History Father Heart disease Hypertension Myocardial infarction CVD (cardiovascular disease) Mother Hypertension Type II diabetes mellitus Daughter No problems noted. Sister In good health Sister In good health Brother No problems noted. Brother No problems noted. Brother No problems noted. Social History Social History Household Members: None Housing: Apartment Alcohol intake: never Patient Tobacco Use Status: Never used Tobacco e-Cigarette/Vaping Use: Never Used Second Hand Smoke Exposure: No Advance Directives: Yes Advance Directives Information Provided: Yes Advance Directives on File: No Current occupational status: retired Cognitive needs: No Hearing needs: No Vision needs: Yes Physical Exam Vital Signs: Vital Signs: Last Vital Signs Temp 98.7 F 02/11/24 12:23 Pulse 75 02/11/24 12:23 Resp 16 02/11/24 12:23 BP 155/79 H 02/11/24 12:23 Pulse Ox 98 02/11/24 12:23 O2 Del Method Room Air 02/11/24 12:23 BMI result Body Mass Index 21.2 Appearance: Alert. Oriented X3. No acute distress. Head: normocephalic, atraumatic. nontender throughout Eyes: Pupils equal, round and reactive to light. EOMs intact. Neck: Normal inspection. Neck supple. CVS: Normal heart rate and rhythm. Pulses normal. Respiratory: No respiratory distress. Breath sounds normal. Abdomen: Soft and nontender. +BS x4 Skin: Skin warm and dry. Normal skin color. Normal skin turgor. No rashes. Extremities: No lower extremity edema. Right knee swollen and tender to palpation. Left knee not swollen but is tender to palpation. Bilateral ROM intact but painful, neurovascularly intact proximally and distally. Left shoulder pain with abduction against resistance, active ROM intact without pain. Neuro/psych: Oriented X 3. No motor deficit. No sensory deficit. CN II-XII intact. Normal speech and cognition. steady gait Medical Decision Making Medical Decision Making MDM Narrative: 73-year-old female with history of T2DM, hypothyroidism, anxiety, depression, OA of right hip presenting for evaluation after falling out of her bed last night and injuring her right knee. States she fell out of bed because her mattress and denies dizziness or LOC preceding fall, therefore consistent with mechanical fall out of bed. Patient states that she did hit her forehead when she fell, denies subsequent LOC. Patient is not on blood thinners per chart review. No focal neuro deficits on exam. CT head not completed at patient states she needs to leave. Patient fell on her knees. Right knee is obviously swollen and tender to palpation. Xray obtained but results are pending. Left knee is tender to palpation but there is no obvious abnormality or ecchymosis on exam. patient is up ambulating to the bathroom and steady on her feet. imaging is still pending. will call if significant abnormality. Differential Diagnosis Differential Diagnoses: The differential diagnosis associated with the presentation includes Mechanical fall, syncopal fall Intracranial hemorrhage, concussion ligament tear of right knee, contusion of right knee, right knee dislocation ligament tear of left knee, contusion of left knee, left knee dislocation Radiology Impression Discussion of test interpretation with radiology: I have reviewed the radiologist's reading. Radiologist Impression: Degenerative changes and moderate to large joint effusion, atherosclerotic disease External Record Review External record reviewed: Prior outpatient labs and Prior outpatient radiology Prescription Management I considered prescription management with: Pain Medication Critical Care Time Critical Care Time Critical Care Time: No Discharge Plan Discharge Clinical Impression: Pain and swelling of right knee Patient Disposition: Home, Self-Care Instructions: Swollen Knee Joint (ED) Additional Instructions: Recommended CT scan of your head and neck given the fall however you declined and needed to leave the emergency room today You have pain and swelling of your right knee. This is most likely due to fluid in the knee after your fall. X-ray was done of the knee but not read yet. If there is any significant abnormalities besides fluid, we will call you. Where the provided Pablo wrap for compression and support. Apply ice and elevate your knee whenever possible. Follow-up with your doctor. Take Motrin and Tylenol as needed for pain. If you have ongoing pain despite rest, ice, elevation, recommend following up with Orthopedics. Name and number below. Call for an appointment. If you develop new or worsening symptoms call 911 or come back to the ER for further evaluation. Prescriptions: No Action omega-3 fatty acids [Fish Oil Concentrate] 1,000 mg capsule 1,000 mg PO DAILY Qty: 90 0RF (DME) blood-glucose meter [FreeStyle Lite Meter] Kit See Rx Instructions .ROUTE .MEDSUPPLY Qty: 1 0RF Rx Instructions: As directed (DME) pen needle, diabetic [BD Stephanie 2nd Gen Pen Needle] 32 gauge x 5/32 needle See Rx Instructions .ROUTE .MEDSUPPLY Qty: 90 3RF Rx Instructions: As directed once daily (DME) lancets [FreeStyle Lancets] 28 gauge misc See Rx Instructions .ROUTE .MEDSUPPLY Qty: 100 6RF Rx Instructions: As directed twice a day citalopram 20 mg tablet 20 mg PO DAILY 90 Days Qty: 90 2RF metformin 500 mg tablet extended release 24 hr 1,000 mg PO BID 90 Days Qty: 360 2RF (DME) FreeStyle Lite Strips Strip See Rx Instructions .ROUTE .MEDSUPPLY Qty: 50 11RF Rx Instructions: twice a day (DME) shower head See Rx Instructions .Route .MEDSUPPLY Qty: 1 0RF Rx Instructions: As directed omega-3 fatty acids 1,000 mg capsule 1,000 mg PO DAILY Qty: 90 3RF cyclobenzaprine 5 mg tablet 5 mg PO TID PRN (Reason: muscle spasm) Qty: 20 1RF gabapentin 300 mg capsule 300 mg PO BEDTIME Qty: 30 4RF (DME) cane See Rx Instructions .Route .MEDSUPPLY Qty: 1 0RF Rx Instructions: As directed (DME) commode See Rx Instructions .Route .MEDSUPPLY Qty: 1 0RF Rx Instructions: As directed cyanocobalamin (vitamin B-12) 1,000 mcg tablet 1,000 mcg PO DAILY Qty: 90 3RF folic acid 1 mg tablet 1 mg PO DAILY Qty: 90 2RF levothyroxine 75 mcg tablet 75 mcg PO DAILY Qty: 90 0RF (DME) BED PADS small See Rx Instructions .Route .MEDSUPPLY Qty: 30 12RF Rx Instructions: Wipes 3/month Kotex 6x's a day bed pads 1 a day (DME) KOTEX See Rx Instructions .Route .MEDSUPPLY Qty: 120 12RF Rx Instructions: As directed Wipes 3/month Kotex 6x's a day bed pads 1 a day (DME) WIPES See Rx Instructions .Route .MEDSUPPLY Qty: 3 12RF Rx Instructions: Wipes 3/month Kotex 6x's a day bed pads 1 a day albuterol sulfate [Ventolin HFA] 90 mcg/actuation HFA aerosol inhaler 2 puff inhalation Q6H PRN (Reason: for wheezing) Qty: 18 0RF Trulicity 0.75 mg/0.5 mL pen injector 0.75 mg subcut QWEEK Qty: 2 2RF naproxen 500 mg tablet 500 mg PO BID PRN (Reason: pain) 7 Days Qty: 14 0RF oxycodone 5 mg tablet 5 mg PO TID PRN (Reason: pain) 3 Days Qty: 9 0RF Rx Instructions: Partial Fill upon patient request. albuterol sulfate 90 mcg/actuation aerosol powdr breath activated 2 inh inhalation Q4-6H PRN (Reason: shortness of breath or wheezing) Qty: 1 0RF lidocaine 5 % adhesive patch,medicated 1 patch topical DAILY PRN (Reason: pain) Qty: 15 0RF Rx Instructions: leave on most painful area for up to 12 hrs morphine 15 mg tablet 15 mg PO Q6H PRN (Reason: pain) 5 Days Qty: 10 0RF Rx Instructions: Partial Fill upon patient request. diclofenac sodium [Arthritis Pain (diclofenac)] 1 % gel 4 g topical QID Qty: 100 4RF Rx Instructions: apply to single knee, ankle, foot; for foot includes sole/toes/top of foot ezetimibe 10 mg tablet 10 mg PO DAILY Qty: 90 1RF lovastatin 20 mg tablet 20 mg PO DAILY 90 Days Qty: 90 3RF meclizine 25 mg tablet 25 mg PO TID Qty: 30 2RF fluticasone propionate [Flonase Allergy Relief] 50 mcg/actuation spray,suspension 2 spray intranasal DAILY Qty: 16 2RF Rx Instructions: administer into each nostril hydroxyzine HCl 10 mg tablet 10 mg PO BID clonazepam 0.5 mg tablet 0.5 mg PO DAILY PRN magnesium 250 mg tablet 250 mg PO DAILY Referrals: [facility] [place] [facility] [Provider Group] (Swollen right knee) Interventions: ED Discharge Assessment Last Done: 02/11/24 12:23 Discharge Date/Time: 02/11/24 12:24 Print Language: Swiss
--- NOTE | 2024-02-11 12:22 | PC.NURSE ---
pt declined for CT of head/neck to be obtained. pt verbalizing she needs to leave [facility] prior to xray results being completed. pt/family member notified/aware that if abnormalities result, the pt will be called. td wrap/ice applied to pt's right knee. pt discharged via wheelchair w/ family.
[2024-02-11 12:23] VITALS: BP 155/79; PULSE 75; RESP 16; TEMP 37.1; O2SAT 98
== END 2024-02-11 12:24 | disposition home or self-care (01) ==
PROVIDERS: Emergency Provider Emergency Medicine; PCP Internal Medicine
DX: M25.561 Pain in right knee (principal); Z79.899 Other long term (current) drug therapy
CPT/HCPCS: 73564; 99282; 99283

== ENCOUNTER 2024-02-13 19:13 | Emergency (ER) | payer OTHER, SELFPAY ==
--- NOTE | ~2024-02-13 | CT_ITS ---
EXAMINATION: CT KNEE WITHOUT CONTRAST, RIGHT CLINICAL INFORMATION: Pain. Trauma COMPARISON: Radiograph dated 02/11/2024 TECHNIQUE: Multidetector volumetric imaging was obtained through the right knee without contrast. Multiplanar reformatted images in coronal and sagittal orientations were submitted. This CT examination was performed using dose optimization techniques as appropriate, variously including the following: *Automated exposure control *Adjustment of mA and/or kV according to patient size (this includes techniques or standardized protocols for targeted exams where dose is matched to indication/reason for exam; i.e. extremities or head) *Use of iterative reconstruction technique DLP: 234 mGy-cm FINDINGS: No fracture or malalignment. Bone mineralization appears normal. Mild medial and patellofemoral joint space narrowing. Small marginal osteophytes. Subcortical cystic change in the trochlea. Chondrocalcinosis is present at both the medial and lateral menisci and the articular cartilage. Calcium deposition is also noted within the cruciate ligaments and collateral ligaments as well as multiple entheses. There is a large joint effusion with a moderate-sized Gage's cyst. No intra-articular loose bodies. There is soft tissue swelling at the knee with associated subcutaneous edema. Atherosclerotic calcification is present in the popliteal and femoral arteries. Musculature is normal. Enthesopathic spurring is present at the quadriceps tendon insertion and patellar tendon origin. CT/CT knee RT wo IV con IMPRESSION: 1. No acute fracture or malalignment at the right knee. 2. Large joint effusion with a moderate-sized Gage's cyst. 3. Mild tricompartmental osteoarthritis with chondrocalcinosis.
[2024-02-13 19:18] VITALS: BP 120/86; BP 149/67; PULSE 81; PULSE 87; RESP 17; TEMP 36.7; O2SAT 95; O2SAT 98; BMI 21.0
--- NOTE | 2024-02-13 19:53 | ED_ITS ---
HPI - Extremity Problem General Chief complaint: Extremity Problem Stated complaint: fall w/ head strike, 10/10 l leg pain Time Seen by Provider: 02/13/24 19:49 Source: patient Mode of arrival: EMS Limitations: no limitations History of Present Illness ED Provider: Shaka HPI Narrative: 73-year-old female with history of T2DM, hypothyroidism, anxiety, depression, OA , presents with ongoing right knee pain. Patient states she was seen in the emergency department 3 days ago after falling out of bed. She had x-rays of the knee, there was no injury sustained. Patient here due to swelling and ongoing pain. Patient states she has been using a cane to ambulate at home. Patient is able to flex and extend the knee. No new injury sustained. Related Data Home Medications ?Medication ?Instructions ?Recorded ?Confirmed clonazepam 0.5 mg tablet 0.5 mg PO DAILY PRN 07/04/20 05/22/23 hydroxyzine HCl 10 mg tablet 10 mg PO BID 07/04/20 05/22/23 magnesium 250 mg tablet 250 mg PO DAILY 07/04/20 05/22/23 Previous Rx's ?Medication ?Instructions ?Recorded Fish Oil Concentrate 1,000 mg 1,000 mg PO DAILY #90 caps 05/22/21 capsule (omega-3 fatty acids) blood-glucose meter (FreeStyle #1 ea 05/15/22 Lite Meter kit) citalopram 20 mg tablet 20 mg PO DAILY 90 days #90 tabs 11/15/22 lancets 28 gauge (FreeStyle #100 ea 11/15/22 Lancets) pen needle, diabetic 32 gauge x #90 ea 11/15/22 5/32 (BD Stephanie 2nd Gen Pen Needle) naproxen 500 mg tablet 500 mg PO BID PRN pain 7 days #14 03/19/23 tabs oxycodone 5 mg tablet 5 mg PO TID PRN pain 3 days #9 tabs 03/19/23 diclofenac sodium 1 % topical gel 4 g topical QID #100 grams 04/03/23 (Arthritis Pain (diclofenac)) metformin 500 mg tablet,extended 1,000 mg (2 x 500 mg) PO BID 90 05/07/23 release 24 hr days #360 tabs fluticasone propionate 50 2 spray intranasal DAILY #16 grams 05/22/23 mcg/actuation nasal spray,suspension (Flonase Allergy Relief) meclizine 25 mg tablet 25 mg PO TID #30 tabs 05/22/23 blood sugar diagnostic (FreeStyle #50 ea 05/29/23 Lite Strips) albuterol sulfate 90 mcg/actuation 2 inh inhalation Q4-6H PRN 08/29/23 breath activated powder inhaler shortness of breath or wheezing #1 ea lidocaine 5 % topical patch 1 patch topical DAILY PRN pain #15 08/29/23 ea morphine 15 mg immediate release 15 mg PO Q6H PRN pain 5 days #10 08/29/23 tablet tabs shower head #1 ea 10/24/23 omega-3 fatty acids 1,000 mg 1,000 mg PO DAILY #90 caps 10/25/23 capsule cyclobenzaprine 5 mg tablet 5 mg PO TID PRN muscle spasm #20 10/31/23 tabs gabapentin 300 mg capsule 300 mg PO BEDTIME #30 caps 11/04/23 cane #1 ea 11/11/23 commode #1 ea 11/11/23 cyanocobalamin (vitamin B-12) 1,000 mcg PO DAILY #90 tabs 11/15/23 1,000 mcg tablet folic acid 1 mg tablet 1 mg PO DAILY #90 tabs 11/22/23 ezetimibe 10 mg tablet 10 mg PO DAILY #90 tabs 12/11/23 lovastatin 20 mg tablet 20 mg PO DAILY 90 days #90 tabs 12/11/23 levothyroxine 75 mcg tablet 75 mcg PO DAILY #90 tabs 12/23/23 BED PADS #30 ea 12/30/23 KOTEX #120 ea 12/30/23 WIPES #3 ea 12/30/23 albuterol sulfate 90 mcg/actuation 2 puff inhalation Q6H PRN for 01/20/24 aerosol inhaler (Ventolin HFA) wheezing #18 ea dulaglutide 0.75 mg/0.5 mL 0.75 mg (0.5 mL) subcut QWEEK #2 mL 01/24/24 subcutaneous [facility] meloxicam 15 mg tablet 15 mg PO DAILY #7 tabs 02/13/24 Allergies Allergy/AdvReac Type Severity Reaction Status Date / Time acetaminophen [Tylenol] Allergy Unknown Anaphylaxis Verified 02/13/24 19:24 atorvastatin [Lipitor] Allergy Unknown myalgia Verified 02/13/24 19:24 rosuvastatin [From Crestor] Allergy Unknown Myalgia Verified 02/13/24 19:24 Review of Systems Constitutional: Constitutional: Denies fever(s) Musculoskeletal: Musculoskeletal: Reports arthralgias and Reports joint swelling [facility] Past Medical History Attestation statement: The following information was validated with the patient. Medical History (Updated 02/13/24 @ 23:30 by WARREN Aleman) OA (osteoarthritis) of hip COVID-19 virus infection Colon cancer screening Hypoglycemia Hypoglycemia unawareness associated with type 2 diabetes mellitus Screening for osteoporosis Multinodular goiter Mammogram declined Colonoscopy refused Degenerative disc disease, cervical Chondrocalcinosis Anxiety and depression Asthma Osteoarthritis Carpal tunnel syndrome of right wrist Serum potassium elevated B12 deficiency Renal stones Type 2 diabetes mellitus with diabetic polyneuropathy Hyperlipidemia LDL goal <100 Hypothyroid Surgical History History of cataract surgery Hx of lithotripsy Hx of wisdom tooth extraction Hx of vaginal hysterectomy Hx of bilateral breast reduction surgery Family History Family History Father Heart disease Hypertension Myocardial infarction CVD (cardiovascular disease) Mother Hypertension Type II diabetes mellitus Daughter No problems noted. Sister In good health Sister In good health Brother No problems noted. Brother No problems noted. Brother No problems noted. Social History Social History Household Members: None Housing: Apartment Alcohol intake: never Patient Tobacco Use Status: Never used Tobacco e-Cigarette/Vaping Use: Never Used Second Hand Smoke Exposure: No Advance Directives: No Advance Directives Information Provided: No Do you have a plan to hurt others: No Plan Current occupational status: retired Cognitive needs: No Hearing needs: No Vision needs: Yes Physical Exam Vital Signs: Vital Signs: Last Vital Signs Temp 98.1 F 02/13/24 22:42 Pulse 74 02/13/24 22:42 Resp 16 02/13/24 22:42 BP 112/50 L 02/13/24 22:42 Pulse Ox 96 02/13/24 22:42 O2 Del Method Room Air 02/13/24 22:42 BMI result Body Mass Index 21.0 Const: Other: Alert well in appearance Neck: Other: Soft, supple, full range of motion no midline tenderness Resp: Other: Nonlabored respiration Cardio: Other: Normal peripheral perfusion Skin: Other: No rash Neuro: Other: Alert and oriented x3 Extrem: Other: Swelling of the right knee noted, able to flex and extend the knee, overlying ecchymosis present no overlying erythema or warmth of the joint Psych: Other: Cooperative Medications Administered Discontinued Medications Generic Name Dose Route Start Last Admin Trade Name Freq PRN Reason Stop Dose Admin Ibuprofen 600 mg 02/13/24 20:07 02/13/24 21:14 Ibuprofen 600 Mg Tablet PO 02/13/24 20:08 600 mg ONCE ONE Administration Medical Decision Making Medical Decision Making MDM Narrative: 73-year-old female with history of T2DM, hypothyroidism, anxiety, depression, OA , presents with ongoing right knee pain. Patient states she was seen in the emergency department 3 days ago after falling out of bed. She had x-rays of the knee, there was no injury sustained. Patient here due to swelling and ongoing pain. Patient states she has been using a cane to ambulate at home. Patient is able to flex and extend the knee. No new injury sustained. Problem: Known arthritis History: Per patient I have considered the following differential diagnoses: Occult fracture, dislocation, joint effusion, septic effusion, Plan: No new injury, screening labs not warranted. Given she is having worsening swelling, perhaps she has an occult injury that was missed on the x- ray, adding a CT scan. Giving ibuprofen for her discomfort. Thought about septic effusion, however she does have full range of motion of the joint, no associated erythema, is afebrile. I have independently reviewed the following tests: CT right knee:EXAMINATION: CT KNEE WITHOUT CONTRAST, RIGHT CLINICAL INFORMATION: Pain. Trauma COMPARISON: Radiograph dated 02/11/2024 TECHNIQUE: Multidetector volumetric imaging was obtained through the right knee without contrast. Multiplanar reformatted images in coronal and sagittal orientations were submitted. This CT examination was performed using dose optimization techniques as appropriate, variously including the following: *Automated exposure control *Adjustment of mA and/or kV according to patient size (this includes techniques or standardized protocols for targeted exams where dose is matched to indication/reason for exam; i.e. extremities or head) *Use of iterative reconstruction technique DLP: 234 mGy-cm FINDINGS: No fracture or malalignment. Bone mineralization appears normal. Mild medial and patellofemoral joint space narrowing. Small marginal osteophytes. Subcortical cystic change in the trochlea. Chondrocalcinosis is present at both the medial and lateral menisci and the articular cartilage. Calcium deposition is also noted within the cruciate ligaments and collateral ligaments as well as multiple entheses. There is a large joint effusion with a moderate-sized Gage's cyst. No intra-articular loose bodies. There is soft tissue swelling at the knee with associated subcutaneous edema. Atherosclerotic calcification is present in the popliteal and femoral arteries. Musculature is normal. Enthesopathic spurring is present at the quadriceps tendon insertion and patellar tendon origin. CT/CT knee RT wo IV con IMPRESSION: 1. No acute fracture or malalignment at the right knee. 2. Large joint effusion with a moderate-sized Gage's cyst. 3. Mild tricompartmental osteoarthritis with chondrocalcinosis. Differential Diagnosis Differential Diagnoses: The differential diagnosis associated with the presentation includes Occult fracture, dislocation, joint effusion, septic effusion Discharge Plan Discharge Clinical Impression: Effusion of knee joint right, Contusion, Synovial cyst of popliteal space [Gage], right knee Patient Disposition: Home, Self-Care Instructions: Bakers Cyst (ED), Swollen Knee Joint (ED), Bone Bruise (ED) Additional Instructions: The CT scan of the knee was negative for fracture. You have a contusion, this is a fancy word for a bruise. The swelling in your knee is called in effusion, this is associated with the knee trauma. See home care instructions. In addition, your found to have a Gage's cyst, this is a fluid collection behind the right knee. It is associated with your known arthritis. You need to follow up with an orthopedic service for further assessment. The Gage's cysts are often drained. Take the meloxicam as directed for your joint pain. Call your primary care provider for a follow up appointment. Prescriptions: New meloxicam 15 mg tablet 15 mg PO DAILY Qty: 7 0RF No Action omega-3 fatty acids [Fish Oil Concentrate] 1,000 mg capsule 1,000 mg PO DAILY Qty: 90 0RF (DME) blood-glucose meter [FreeStyle Lite Meter] Kit See Rx Instructions .ROUTE .MEDSUPPLY Qty: 1 0RF Rx Instructions: As directed (DME) pen needle, diabetic [BD Stephanie 2nd Gen Pen Needle] 32 gauge x 5/32 needle See Rx Instructions .ROUTE .MEDSUPPLY Qty: 90 3RF Rx Instructions: As directed once daily (DME) lancets [FreeStyle Lancets] 28 gauge misc See Rx Instructions .ROUTE .MEDSUPPLY Qty: 100 6RF Rx Instructions: As directed twice a day citalopram 20 mg tablet 20 mg PO DAILY 90 Days Qty: 90 2RF metformin 500 mg tablet extended release 24 hr 1,000 mg PO BID 90 Days Qty: 360 2RF (DME) FreeStyle Lite Strips Strip See Rx Instructions .ROUTE .MEDSUPPLY Qty: 50 11RF Rx Instructions: twice a day (DME) shower head See Rx Instructions .Route .MEDSUPPLY Qty: 1 0RF Rx Instructions: As directed omega-3 fatty acids 1,000 mg capsule 1,000 mg PO DAILY Qty: 90 3RF cyclobenzaprine 5 mg tablet 5 mg PO TID PRN (Reason: muscle spasm) Qty: 20 1RF gabapentin 300 mg capsule 300 mg PO BEDTIME Qty: 30 4RF (DME) cane See Rx Instructions .Route .MEDSUPPLY Qty: 1 0RF Rx Instructions: As directed (DME) commode See Rx Instructions .Route .MEDSUPPLY Qty: 1 0RF Rx Instructions: As directed cyanocobalamin (vitamin B-12) 1,000 mcg tablet 1,000 mcg PO DAILY Qty: 90 3RF folic acid 1 mg tablet 1 mg PO DAILY Qty: 90 2RF levothyroxine 75 mcg tablet 75 mcg PO DAILY Qty: 90 0RF (DME) BED PADS small See Rx Instructions .Route .MEDSUPPLY Qty: 30 12RF Rx Instructions: Wipes 3/month Kotex 6x's a day bed pads 1 a day (DME) KOTEX See Rx Instructions .Route .MEDSUPPLY Qty: 120 12RF Rx Instructions: As directed Wipes 3/month Kotex 6x's a day bed pads 1 a day (DME) WIPES See Rx Instructions .Route .MEDSUPPLY Qty: 3 12RF Rx Instructions: Wipes 3/month Kotex 6x's a day bed pads 1 a day albuterol sulfate [Ventolin HFA] 90 mcg/actuation HFA aerosol inhaler 2 puff inhalation Q6H PRN (Reason: for wheezing) Qty: 18 0RF Trulicity 0.75 mg/0.5 mL pen injector 0.75 mg subcut QWEEK Qty: 2 2RF naproxen 500 mg tablet 500 mg PO BID PRN (Reason: pain) 7 Days Qty: 14 0RF oxycodone 5 mg tablet 5 mg PO TID PRN (Reason: pain) 3 Days Qty: 9 0RF Rx Instructions: Partial Fill upon patient request. albuterol sulfate 90 mcg/actuation aerosol powdr breath activated 2 inh inhalation Q4-6H PRN (Reason: shortness of breath or wheezing) Qty: 1 0RF lidocaine 5 % adhesive patch,medicated 1 patch topical DAILY PRN (Reason: pain) Qty: 15 0RF Rx Instructions: leave on most painful area for up to 12 hrs morphine 15 mg tablet 15 mg PO Q6H PRN (Reason: pain) 5 Days Qty: 10 0RF Rx Instructions: Partial Fill upon patient request. diclofenac sodium [Arthritis Pain (diclofenac)] 1 % gel 4 g topical QID Qty: 100 4RF Rx Instructions: apply to single knee, ankle, foot; for foot includes sole/toes/top of foot ezetimibe 10 mg tablet 10 mg PO DAILY Qty: 90 1RF lovastatin 20 mg tablet 20 mg PO DAILY 90 Days Qty: 90 3RF meclizine 25 mg tablet 25 mg PO TID Qty: 30 2RF fluticasone propionate [Flonase Allergy Relief] 50 mcg/actuation spray,suspension 2 spray intranasal DAILY Qty: 16 2RF Rx Instructions: administer into each nostril hydroxyzine HCl 10 mg tablet 10 mg PO BID clonazepam 0.5 mg tablet 0.5 mg PO DAILY PRN magnesium 250 mg tablet 250 mg PO DAILY Print Language: Gibraltarian
[2024-02-13] MEDS: Ibuprofen 600 MG TABLET PO (21:14)
[2024-02-13 22:42] VITALS: BP 112/50; PULSE 74; RESP 16; TEMP 36.7; O2SAT 96
[2024-02-13 23:40] VITALS: BP 112/50; PULSE 74; RESP 16; TEMP 36.7; O2SAT 96
== END 2024-02-13 23:50 | disposition home or self-care (01) ==
PROVIDERS: Emergency Provider Internal Medicine; PCP Internal Medicine
DX: S80.01XA Contusion of right knee, initial encounter (principal); M25.461 Effusion, right knee; M71.21 Synovial cyst of popliteal space [Baker], right knee; E11.9 Type 2 diabetes mellitus without complications; W06.XXXA Fall from bed, initial encounter; Y93.9 Activity, unspecified; Y92.9 Unspecified place or not applicable; Y99.9 Unspecified external cause status
CPT/HCPCS: 73700; 99284

== ENCOUNTER 2024-02-21 12:57 | Outpatient (AMB) | payer OTHER, SELFPAY ==
--- NOTE | 2024-02-21 13:02 | A.OFFPC_ITS ---
Vital Signs 02/21/24 13:04 Height 5 ft 2 in Weight 118 lb 6 oz BMI 21.6 BP 100/64 Blood Pressure Location Lt brachial Position Sitting Pulse 72 Pulse Source Pulse Oximeter Pulse Oximetry (%) 98 Oxygen Delivery Method Room Air Intake Visit Reasons: vertigo /[place] [facility] [place]: Patient is here to follow-up after a visit the emergency department at [facility] on 02/14/24 Respiratory Therapy Technician Required: Yes Respiratory Therapy Technician Language: Arabic Information Interpreted: non-clinical & clinical Pluck Trimmer: Not Required per policy Accompanied by: Self / Same As Patient Allergies acetaminophen [Tylenol] Allergy (Unknown, Verified 02/21/24 13:04) Anaphylaxis atorvastatin [Lipitor] Allergy (Unknown, Verified 02/21/24 13:04) myalgia rosuvastatin [From Crestor] Allergy (Unknown, Verified 02/21/24 13:04) Myalgia Tobacco use date assessed: 02/21/24 Fall risk assessment: 1 Fall in past year Last assessed Fall Risk: 02/21/24 Dental Screening Dental Screen Date: 12/11/23 HPI HPI Comments History of Present Illness Details 73 y/o female patient who presents to [facility] today for ED hospital Follow up. DOS: 02/13/24 and DOD: Same Pt was seen and evaluated at [facility] [place]- ED after suffering a Fall and hit head and right knee. All images negative. Pt was discharge home with pain medications. Today Denies Pain or other concerns. [facility] Medical History (Updated 02/14/24 @ 00:01 by Jay Lo) OA (osteoarthritis) of hip COVID-19 virus infection Colon cancer screening Hypoglycemia Hypoglycemia unawareness associated with type 2 diabetes mellitus Screening for osteoporosis Multinodular goiter Mammogram declined Colonoscopy refused Degenerative disc disease, cervical Chondrocalcinosis Anxiety and depression Asthma Osteoarthritis Carpal tunnel syndrome of right wrist Serum potassium elevated B12 deficiency Renal stones Type 2 diabetes mellitus with diabetic polyneuropathy Hyperlipidemia LDL goal <100 Hypothyroid Surgical History History of cataract surgery Hx of lithotripsy Hx of wisdom tooth extraction Hx of vaginal hysterectomy Hx of bilateral breast reduction surgery Family History Father Heart disease Hypertension Myocardial infarction CVD (cardiovascular disease) Mother Hypertension Type II diabetes mellitus Daughter No problems noted. Sister In good health Sister In good health Brother No problems noted. Brother No problems noted. Brother No problems noted. Social History Household Members: None Housing: Apartment Alcohol intake: never Patient Tobacco Use Status: Never used Tobacco e-Cigarette/Vaping Use: Never Used Second Hand Smoke Exposure: No service: No Current occupational status: retired Cognitive needs: No Hearing needs: No Vision needs: Yes Questionnaire Thrive Questionnaire Date Thrive assessed: 12/11/23 DENISHA-7 AMB Questionnaire DENISHA-7 Date DENISHA - 7 assessed: 12/11/23 Source: Developed by Drs. Matheus Cox, Shae Armas, Linus Cheng and colleagues, with an educational roxana from [employer]. Review of Systems Const All systems reviewed & are unremarkable except as noted in HPI and below Physical exam (Primary Care) Vital Signs: Last Vital Signs Pulse 72 02/21/24 13:04 BP 100/64 02/21/24 13:04 Pulse Ox 98 02/21/24 13:04 Oxygen Delivery Method Room Air 02/21/24 13:04 BMI result Body Mass Index 21.6 Tobacco/Smoking Status: Tobacco use Status Tobacco use date assessed 02/21/24 02/21/24 13:10 Patient Tobacco Use Status Never used Tobacco 02/21/24 13:10 e-Cigarette/Vaping Use Never Used 02/21/24 13:10 Thrive Assessment: Date of Thrive Assessment Date Thrive assessed 12/11/23 02/21/24 13:10 Const General: cooperative, comfortable and no acute distress Orientation/consciousness: patient oriented x3 Skin General skin exam: no rashes or lesions noted Neuro General: patient oriented x3 and gait normal (Walks with a cane) Extrem General: Yes full ROM, Yes no pedal edema and Yes no calf tenderness Psych Speech and movement: Normal speech and movement present Vital Signs: Last Vital Signs Pulse 72 02/21/24 13:04 BP 100/64 02/21/24 13:04 Pulse Ox 98 02/21/24 13:04 Oxygen Delivery Method Room Air 02/21/24 13:04 BMI result Body Mass Index 21.6 Const General: cooperative, comfortable and no acute distress Orientation/consciousness: patient oriented x3 Skin General skin exam: no rashes or lesions noted Neuro General: patient oriented x3 and gait normal (Walks with a cane) Extrem General: Yes full ROM, Yes no pedal edema and Yes no calf tenderness Psych Speech and movement: Normal speech and movement present Assessment and Plan Assessment & Plan (1) Contusion of right knee: Code(s): S80.01XA - Contusion of right knee, initial encounter Qualifiers: Encounter type: initial encounter Qualified Code(s): S80.01XA - Contusion of right knee, initial encounter Plan: Stable, walks with a cane for support Denies any pain at this time. no swelling or tenderness. Acetaminophen for pain relief PRN F/U With PCP PRN Coding Level of Care Code Est Pt Level 4 (93844) Diagnoses Contusion of right knee, initial encounter S80.01XA Encounter type: initial encounter Comment Spent 20 minutes reviewing hospital notes and imaging
[2024-02-21 13:04] VITALS: BP 100/64; PULSE 72; O2SAT 98; BMI 21.6
== END 2024-02-21 16:31 | disposition home or self-care (01) ==
PROVIDERS: PCP Internal Medicine; Visit Provider Nurse Practitioner Family
DX: S80.01XA Contusion of right knee, initial encounter (principal)
CPT/HCPCS: 99214

== ENCOUNTER 2024-04-15 12:48 | Emergency (ER) | payer OTHER, SELFPAY ==
--- NOTE | ~2024-04-15 | XR_ITS ---
EXAMINATION: XR KNEE, LEFT CLINICAL INFORMATION: Left knee COMPARISON: None available. TECHNIQUE: Two views of the left knee. FINDINGS: No evidence of fracture or dislocation and no joint effusion seen. There is chondrocalcinosis more prominent in the medial compartment of left knee joint due to CPPD arthropathy. XR/XR knee LT 2V IMPRESSION: CPPD arthropathy
[2024-04-15 13:03] VITALS: BP 97/73; PULSE 83; RESP 16; TEMP 37; O2SAT 98; BMI 20.8
--- NOTE | 2024-04-15 13:04 | ED.GENADULT ---
HPI - General Adult General Chief complaint: Extremity Problem Stated complaint: L knee pain Time Seen by Provider: 04/15/24 13:16 Source: patient Mode of arrival: ambulatory Limitations: no limitations History of Present Illness ED Provider: Patience Burgses PA-C HPI narrative: Patient is a 73 year old assigned female at with a history of DM. HLD, and asthma presenting to the emergency department today with left knee pain. Patient states that since last night she has been having left knee pain. Patient states that she got up to go to the bathroom and has had pain ever since. Patient denies any dizziness, lightheadedness, abdominal pain, nausea, vomiting, fever, chills, blurry vision, double vision, loss of vision, chest pain, difficulty breathing, shortness of breath, back pain, night sweats, pain with urination, increased urinary frequency, increased urinary urgency, blood in her urine or stool, syncope or a near syncopal episode, recent trauma or falls, bowel incontinence, bladder incontinence, or any other complaints at this time. Onset (ago): day(s) (1) Location: left and lower extremity Severity: mild Severity scale (1-10): 4 Quality: aching and dull Pain Consistency: constant Relieving factors: none Exacerbating factors: movement Associated symptoms: denies other symptoms Treatments prior to arrival: none Related Data Home Medications ?Medication ?Instructions ?Recorded ?Confirmed clonazepam 0.5 mg tablet 0.5 mg PO DAILY PRN 07/04/20 05/22/23 hydroxyzine HCl 10 mg tablet 10 mg PO BID 07/04/20 05/22/23 magnesium 250 mg tablet 250 mg PO DAILY 07/04/20 05/22/23 Previous Rx's ?Medication ?Instructions ?Recorded Fish Oil Concentrate 1,000 mg 1,000 mg PO DAILY #90 caps 05/22/21 capsule (omega-3 fatty acids) blood-glucose meter (FreeStyle #1 ea 05/15/22 Lite Meter kit) citalopram 20 mg tablet 20 mg PO DAILY 90 days #90 tabs 11/15/22 lancets 28 gauge (FreeStyle #100 ea 11/15/22 Lancets) pen needle, diabetic 32 gauge x #90 ea 11/15/22 (BD Stephanie 2nd Gen Pen Needle) naproxen 500 mg tablet 500 mg PO BID PRN pain 7 days #14 07/18/23 tabs oxycodone 5 mg tablet 5 mg PO TID PRN pain 3 days #9 tabs 03/19/23 fluticasone propionate 50 2 spray intranasal DAILY #16 grams 05/22/23 mcg/actuation nasal spray,suspension (Flonase Allergy Relief) meclizine 25 mg tablet 25 mg PO TID #30 tabs 05/22/23 blood sugar diagnostic (FreeStyle #50 ea 05/29/23 Lite Strips) albuterol sulfate 90 mcg/actuation 2 inh inhalation Q4-6H PRN 08/29/23 breath activated powder inhaler shortness of breath or wheezing #1 ea lidocaine 5 % topical patch 1 patch topical DAILY PRN pain #15 08/29/23 ea morphine 15 mg immediate release 15 mg PO Q6H PRN pain 5 days #10 08/29/23 tablet tabs shower head #1 ea 10/24/23 omega-3 fatty acids 1,000 mg 1,000 mg PO DAILY #90 caps 10/25/23 capsule cane #1 ea 11/11/23 commode #1 ea 11/11/23 cyanocobalamin (vitamin B-12) 1,000 mcg PO DAILY #90 tabs 11/15/23 1,000 mcg tablet folic acid 1 mg tablet 1 mg PO DAILY #90 tabs 11/22/23 ezetimibe 10 mg tablet 10 mg PO DAILY #90 tabs 12/11/23 lovastatin 20 mg tablet 20 mg PO DAILY 90 days #90 tabs 12/11/23 BED PADS #30 ea 12/30/23 KOTEX #120 ea 12/30/23 WIPES #3 ea 12/30/23 dulaglutide 0.75 mg/0.5 mL 0.75 mg (0.5 mL) subcut QWEEK #2 mL 01/24/24 subcutaneous pen injector (Trulicity) albuterol sulfate 90 mcg/actuation 2 puff inhalation Q6H PRN for 02/15/24 aerosol inhaler (Ventolin HFA) wheezing #18 ea cyclobenzaprine 5 mg tablet 5 mg PO TID PRN muscle spasm #20 02/16/24 tabs metformin 500 mg tablet,extended 1,000 mg (2 x 500 mg) PO BID 90 03/20/24 release 24 hr days #360 tabs diclofenac sodium 1 % topical gel 4 g topical QID #100 grams 04/08/24 (Arthritis Pain (diclofenac)) levothyroxine 75 mcg tablet 75 mcg PO DAILY #90 tabs 04/08/24 gabapentin 300 mg capsule 300 mg PO BEDTIME #30 caps 04/13/24 Allergies Allergy/AdvReac Type Severity Reaction Status Date / Time acetaminophen [Tylenol] Allergy Unknown Anaphylaxis Verified 04/15/24 13:05 atorvastatin [Lipitor] Allergy Unknown myalgia Verified 04/15/24 13:05 rosuvastatin [From Crestor] Allergy Unknown Myalgia Verified 04/15/24 13:05 Review of Systems Constitutional: Constitutional: Reports no additional constitutional complaints, Denies chills, Denies fever(s) and Denies night sweats Eyes: Eyes: Reports no additional eye complaints, Denies blurry vision, Denies change in vision, Denies diplopia, Denies eye discharge, Denies loss of vision and Denies eye pain ENT: Denies dizziness Cardiovascular: Cardiovascular: Reports no additional cardiovascular complaints, Denies chest pain, Denies lightheadedness, Denies Loss of Consciousness and Denies dyspnea Respiratory: Respiratory: Reports no additional respiratory complaints and Denies dyspnea Gastrointestinal: Gastrointestinal: Reports no additional gastrointestinal complaints, Denies abdominal pain, Denies melena, Denies hematochezia, Denies change in bowel habits and Denies change in stool character Genitourinary: Genitourinary: Denies hematuria, Denies urinary frequency, Denies dysuria, Denies urinary incontinence, Denies urinary hesitancy and Denies urinary urgency Musculoskeletal: Musculoskeletal: Reports no additional musculoskeletal complaints, Denies numbness and Denies tingling Comments: left knee pain Neurologic: Denies dizziness, Denies loss of vision, Denies numbness and Denies tingling Psychiatric: Psychiatric: Reports no additional psychiatric complaints Endocrine: Endocrine: Reports no additional endocrine complaints Hematologic/Lymphatic: Hematologic/Lymphatic: Reports no additional hematologic/lymphatic complaints Allergic/Immunologic: Allergic/Immunologic: Reports no additional allergic/immunologic complaints PMFSH Past Medical History Attestation statement: The following information was validated with the patient. Source: old records reviewed and nursing notes reviewed Medical History OA (osteoarthritis) of hip COVID-19 virus infection Colon cancer screening Hypoglycemia Hypoglycemia unawareness associated with type 2 diabetes mellitus Screening for osteoporosis Multinodular goiter Mammogram declined Colonoscopy refused Degenerative disc disease, cervical Chondrocalcinosis Anxiety and depression Asthma Osteoarthritis Carpal tunnel syndrome of right wrist Serum potassium elevated B12 deficiency Renal stones Type 2 diabetes mellitus with diabetic polyneuropathy Hyperlipidemia LDL goal <100 Hypothyroid Surgical History History of cataract surgery Hx of lithotripsy Hx of wisdom tooth extraction Hx of vaginal hysterectomy Hx of bilateral breast reduction surgery Family History Family History Father Heart disease Hypertension Myocardial infarction CVD (cardiovascular disease) Mother Hypertension Type II diabetes mellitus Daughter No problems noted. Sister In good health Sister In good health Brother No problems noted. Brother No problems noted. Brother No problems noted. Social History Social History Household Members: None Housing: Apartment Alcohol intake: never Patient Tobacco Use Status: Never used Tobacco e-Cigarette/Vaping Use: Never Used Second Hand Smoke Exposure: No Advance Directives: No Advance Directives Information Provided: No service: No Current occupational status: retired Cognitive needs: No Hearing needs: No Vision needs: Yes Physical Exam ED Vital Signs: Vital Signs - 24 hr 04/15/24 13:03 04/15/24 14:57 Temperature 98.6 F 98.6 F Pulse Rate 83 83 Respiratory Rate 16 16 Blood Pressure 97/73 97/73 Pulse Oximetry 98 98 Oxygen Delivery Method Room Air Room Air BMI result Body Mass Index 20.8 Const General: cooperative, no acute distress, alert and awake Nutritional Appearance: well nourished Orientation/consciousness: patient oriented x3 Limitations: no limitations HENMT Head: Yes normal to inspection and Yes atraumatic Ears: hearing grossly normal bilaterally and external ears normal General nose exam: Normal external nose present, no nasal discharge noted and no epistaxis Face and sinus: Yes normal facial exam, No abrasion and No laceration Mouth: Normal oral and palatal mucosa present, no drooling and no muffled voice Eyes General: appearance normal, both eyes and all related structures Periorbital: periorbital findings normal Eyelids: Yes eyelids normal Conjunctivae: conjunctivae normal Pupils: Equal, round and reactive pupils present EOM: EOMs intact bilaterally Neck Neck: Yes normal visual inspection, Yes full ROM and Yes no lymphadenopathy Chest Chest palpation & inspection: normal inspection of the chest Resp Effort & Inspection: normal respiratory effort and able to speak in complete sentences GI Inspection: Yes normal to inspection Neuro General: patient oriented x3 and moves all extremities Cranial nerves: Yes Equal, round and reactive pupils present Cognition (Neuro): normal cognition Extrem General: Yes normal to inspection, Yes full ROM and Yes capillary refill normal Psych Appearance: grossly normal Mental Status: mental status grossly normal Affect: normal affect Attitude: cooperative Thought process: Normal thought process present Thought content: Normal thought content present Insight: Good insight present (Psych) Course Course Course Narrative: This is an RME done by WARREN Fong: Additional HPI, ROS, PE not included below will be deferred to primary provider. 73 yoa F presenting to ED for severe pain left knee pain, She states has a hx of chronic Left knee pain. no hx of falls, She denies fevers, numbness and tingling, swelling. Appearance: Alert.? Oriented X3.? No acute cardiopulmonary distress distress.? Head: Normocephalic, atraumatic, no step-offs or deformities Neck: Normal inspection.? Neck supple.? CVS: Pulses normal.? Respiratory: No respiratory distress.? Skin: ? Normal skin color. Extremities: 5/5 strength to bilateral upper and lower extremities, pain with palpation to the superior aspect of the patella, normal ROM Neuro: Oriented X 3.? No motor deficit.? No sensory deficit. Medications Administered Discontinued Medications Generic Name Dose Route Start Last Admin Trade Name Ara PRN Reason Stop Dose Admin Ketorolac Tromethamine 15 mg 04/15/24 14:33 04/15/24 14:40 Ketorolac Tromethamine 15 Mg/Ml Vial IM 04/15/24 14:34 15 mg ONCE ONE Administration Medical Decision Making Medical Decision Making MDM Narrative: Patient is a 73 year old assigned female at with a history of DM, HLD, and asthma presenting to the emergency department today with left knee pain. Patient's physical exam was unremarkable. 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 I explained my physical exam findings as well as all test results to the patient. I answered all questions asked by the patient. I stressed the importance of the patient taking her medication as directed (either prescribed or as the over the counter packaging recommends). I stressed the importance of the patient following up with her primary care provider and an orthopedic provider. I stressed the importance of the patient returning to the emergency department immediately if her symptoms were to worsen or if she were to develop any dizziness, shortness of breath, difficulty breathing, chest pain, blurry vision, loss of vision, nausea, vomiting, abdominal pain, fever, chills, back pain, or any other complaints. Patient verbalized agreement and understanding with this treatment plan and discharge. Differential Diagnosis Differential Diagnoses: The differential diagnosis associated with the presentation includes Left knee pain Left knee OA Left knee CPPD athropathy Admission/Observation Consideration of admission/observation: Escalation of care including admission/observation considered Patient would have been admitted to the hospital had her work up had any findings where hospital admission was appropriate and her clinical presentation warranted hospital admission. Independent Interpretation I performed an independent interpretation of an: Plain X-Ray Interpretation: My interpretation is in agreement with the radiologist's impression of this imaging study. EXAMINATION: XR KNEE, LEFT CLINICAL INFORMATION: Left knee COMPARISON: None available. TECHNIQUE: Two views of the left knee. FINDINGS: No evidence of fracture or dislocation and no joint effusion seen. There is chondrocalcinosis more prominent in the medial compartment of left knee joint due to CPPD arthropathy. XR/XR knee LT 2V IMPRESSION: CPPD arthropathy Dictated By: Nori David MD Signed By: Electronically signed by Nori David MD 04/15/24 1400 Radiology Impression Discussion of test interpretation with radiology: I have reviewed the radiologist's reading. Discharge Plan Discharge Clinical Impression: Acute knee pain, Osteoarthritis Patient Disposition: Home, Self-Care Instructions: Arthralgia (ED) Additional Instructions: Follow up with your primary care provider and an orthopedic provider. Return to the emergency department immediately if your symptoms worsen or if you develop any dizziness, shortness of breath, difficulty breathing, chest pain, blurry vision, loss of vision, nausea, vomiting, abdominal pain, fever, chills, back pain, or any other complaints. Prescriptions: No Action omega-3 fatty acids [Fish Oil Concentrate] 1,000 mg capsule 1,000 mg PO DAILY Qty: 90 0RF (DME) blood-glucose meter [FreeStyle Lite Meter] Kit See Rx Instructions .ROUTE .MEDSUPPLY Qty: 1 0RF Rx Instructions: As directed (DME) pen needle, diabetic [BD Stephanie 2nd Gen Pen Needle] 32 gauge x 5/32 needle See Rx Instructions .ROUTE .MEDSUPPLY Qty: 90 3RF Rx Instructions: As directed once daily (DME) lancets [FreeStyle Lancets] 28 gauge misc See Rx Instructions .ROUTE .MEDSUPPLY Qty: 100 6RF Rx Instructions: As directed twice a day citalopram 20 mg tablet 20 mg PO DAILY 90 Days Qty: 90 2RF (DME) FreeStyle Lite Strips Strip See Rx Instructions .ROUTE .MEDSUPPLY Qty: 50 11RF Rx Instructions: twice a day (DME) shower head See Rx Instructions .Route .MEDSUPPLY Qty: 1 0RF Rx Instructions: As directed omega-3 fatty acids 1,000 mg capsule 1,000 mg PO DAILY Qty: 90 3RF (DME) cane See Rx Instructions .Route .MEDSUPPLY Qty: 1 0RF Rx Instructions: As directed (DME) commode See Rx Instructions .Route .MEDSUPPLY Qty: 1 0RF Rx Instructions: As directed cyanocobalamin (vitamin B-12) 1,000 mcg tablet 1,000 mcg PO DAILY Qty: 90 3RF folic acid 1 mg tablet 1 mg PO DAILY Qty: 90 2RF (DME) BED PADS small See Rx Instructions .Route .MEDSUPPLY Qty: 30 12RF Rx Instructions: Wipes 3/month Kotex 6x's a day bed pads 1 a day (DME) KOTEX See Rx Instructions .Route .MEDSUPPLY Qty: 120 12RF Rx Instructions: As directed Wipes 3/month Kotex 6x's a day bed pads 1 a day (DME) WIPES See Rx Instructions .Route .MEDSUPPLY Qty: 3 12RF Rx Instructions: Wipes 3/month Kotex 6x's a day bed pads 1 a day Trulicity 0.75 mg/0.5 mL pen injector 0.75 mg subcut QWEEK Qty: 2 2RF albuterol sulfate [Ventolin HFA] 90 mcg/actuation HFA aerosol inhaler 2 puff inhalation Q6H PRN (Reason: for wheezing) Qty: 18 0RF cyclobenzaprine 5 mg tablet 5 mg PO TID PRN (Reason: muscle spasm) Qty: 20 1RF metformin 500 mg tablet extended release 24 hr 1,000 mg PO BID 90 Days Qty: 360 2RF levothyroxine 75 mcg tablet 75 mcg PO DAILY Qty: 90 0RF diclofenac sodium [Arthritis Pain (diclofenac)] 1 % gel 4 g topical QID Qty: 100 4RF Rx Instructions: apply to single knee, ankle, foot; for foot includes sole/toes/top of foot gabapentin 300 mg capsule 300 mg PO BEDTIME Qty: 30 6RF naproxen 500 mg tablet 500 mg PO BID PRN (Reason: pain) 7 Days Qty: 14 0RF oxycodone 5 mg tablet 5 mg PO TID PRN (Reason: pain) 3 Days Qty: 9 0RF Rx Instructions: Partial Fill upon patient request. albuterol sulfate 90 mcg/actuation aerosol powdr breath activated 2 inh inhalation Q4-6H PRN (Reason: shortness of breath or wheezing) Qty: 1 0RF lidocaine 5 % adhesive patch,medicated 1 patch topical DAILY PRN (Reason: pain) Qty: 15 0RF Rx Instructions: leave on most painful area for up to 12 hrs morphine 15 mg tablet 15 mg PO Q6H PRN (Reason: pain) 5 Days Qty: 10 0RF Rx Instructions: Partial Fill upon patient request. ezetimibe 10 mg tablet 10 mg PO DAILY Qty: 90 1RF lovastatin 20 mg tablet 20 mg PO DAILY 90 Days Qty: 90 3RF meclizine 25 mg tablet 25 mg PO TID Qty: 30 2RF fluticasone propionate [Flonase Allergy Relief] 50 mcg/actuation spray,suspension 2 spray intranasal DAILY Qty: 16 2RF Rx Instructions: administer into each nostril hydroxyzine HCl 10 mg tablet 10 mg PO BID clonazepam 0.5 mg tablet 0.5 mg PO DAILY PRN magnesium 250 mg tablet 250 mg PO DAILY Referrals: [facility] [place] [facility] [Provider Group] (Call to establish and follow up with an orthopedic provider.) Jennifer Moody MD [Primary Care Provider] - Interventions: ED Discharge Assessment Last Done: 04/15/24 14:57 Discharge Date/Time: 04/15/24 14:58 Print Language: Vincentian
[2024-04-15] MEDS: Ketorolac Tromethamine 15 MG/ML VIAL IM (14:40)
[2024-04-15 14:57] VITALS: BP 97/73; PULSE 83; RESP 16; TEMP 37; O2SAT 98
== END 2024-04-15 14:58 | disposition home or self-care (01) ==
PROVIDERS: Emergency Provider Emergency Medicine; PCP Internal Medicine
DX: M17.12 Unilateral primary osteoarthritis, left knee (principal); M25.562 Pain in left knee
CPT/HCPCS: 73560; 96372; 99283; 99284; J1885

== ENCOUNTER 2024-04-28 12:30 | Outpatient (AMB) | payer OTHER, SELFPAY ==
--- NOTE | 2024-04-28 12:37 | MHC.PC.OV ---
Vital Signs 04/28/24 12:38 Height 5 ft 2 in Weight 118 lb BMI 21.6 BP 136/68 Blood Pressure Location Lt brachial Position Sitting Pulse 77 Pulse Source Pulse Oximeter Pulse Oximetry (%) 98 Oxygen Delivery Method Room Air Intake Visit Reasons: DM , HTN , Cholesterol Allergies acetaminophen [Tylenol] Allergy (Unknown, Verified 04/28/24 12:38) Anaphylaxis atorvastatin [Lipitor] Allergy (Unknown, Verified 04/28/24 12:38) myalgia rosuvastatin [From Crestor] Allergy (Unknown, Verified 04/28/24 12:38) Myalgia Tobacco use date assessed: 02/21/24 Fall risk assessment: No Falls in past year Last assessed Fall Risk: 04/28/24 Dental Screening Dental Screen Date: 12/11/23 HPI DM , HTN , Cholesterol HPI Details 73 year old female with controlled DM, hypercholesterolemia asthma hypothyroidism and major depressive disorder last seen in December 2023. Patient is up-to-date with the Cologuard test 12/08/2021, declined mammogram and bone density. Review of the notes April 15 ER visit for left knee pain was given ketorolac. X-ray done showing CPPD arthropathy. Patient was seen in the office in January following hospital ER visit for fall hitting head and right knee patient had contusion of the right knee here in the office of bilateral knee pain and discussed about the results having arthritis as well as CPPD. Patient has been advised anti-inflammatory to help with the pain and will do a referral to orthopedics. Meanwhile as for the diabetes discussed about Trulicity patient does not want me to change the Trulicity as she likes the weight to be down. But discussed my concerns about hypoglycemia and dizziness. [facility] Medical History OA (osteoarthritis) of hip COVID-19 virus infection Colon cancer screening Hypoglycemia Hypoglycemia unawareness associated with type 2 diabetes mellitus Screening for osteoporosis Multinodular goiter Mammogram declined Colonoscopy refused Degenerative disc disease, cervical Chondrocalcinosis Anxiety and depression Asthma Osteoarthritis Carpal tunnel syndrome of right wrist Serum potassium elevated B12 deficiency Renal stones Type 2 diabetes mellitus with diabetic polyneuropathy Hyperlipidemia LDL goal <100 Hypothyroid Surgical History History of cataract surgery Hx of lithotripsy Hx of wisdom tooth extraction Hx of vaginal hysterectomy Hx of bilateral breast reduction surgery Family History Father Heart disease Hypertension Myocardial infarction CVD (cardiovascular disease) Mother Hypertension Type II diabetes mellitus Daughter No problems noted. Sister In good health Sister In good health Brother No problems noted. Brother No problems noted. Brother No problems noted. Social History Household Members: None Housing: Apartment Alcohol intake: never Patient Tobacco Use Status: Never used Tobacco Tobacco use type: Cigarette e-Cigarette/Vaping Use: Never Used Second Hand Smoke Exposure: No service: No Current occupational status: retired Cognitive needs: No Hearing needs: No Vision needs: Yes Questionnaire PHQ-9 Over the last 2 weeks, how often have you been bothered by any of the following problems? 1. Little interest or pleasure in doing things: several days 2. Feeling down, depressed, or hopeless: several days 3. Trouble falling or staying asleep, or sleeping too much: several days 4. Feeling tired or having little energy: not at all 5. Poor appetite or overeating: not at all 6. Feeling bad about yourself - or that you are a failure or have let yourself or your family down: not at all 7. Trouble concentrating on things, such as reading the newspaper or watching television: not at all 8. Moving or speaking so slowly that other people could have noticed. Or the opposite - being so fidgety or restless that you have been moving around a lot more than usual: not at all 9. Thoughts that you would be better off or of hurting yourself in some way: not at all Total score: 3 Depression Screening Interpretation: Positive Depression Screening Follow-up: Existing condition Depression Screening Done: Yes Source: Developed by Drs. Matheus Cox, Shae Armas, Linus Cheng and colleagues, with an educational roxana from [employer]. Thrive Questionnaire Date Thrive assessed: 12/11/23 AUDIT C Alcohol Use Questionnaire (AUDIT-C) 1. How often do you have a drink containing alcohol?: Never 2. How many drinks containing alcohol do you have on a typical day when you are drinking?: 1 or 2 3. How often do you have six or more drinks on one occasion?: Never Total Score: 0 DENISHA-7 AMB Questionnaire DENISHA-7 Date DENISHA - 7 assessed: 12/11/23 Source: Developed by Drs. Matheus Cox, Shae Armas, Linus Cheng and colleagues, with an educational roxana from [employer]. Physical exam (Primary Care) Vital Signs: Last Vital Signs Pulse 77 04/28/24 12:38 BP 136/68 04/28/24 12:38 Pulse Ox 98 04/28/24 12:38 Oxygen Delivery Method Room Air 04/28/24 12:38 BMI result Body Mass Index 21.6 Tobacco/Smoking Status: Tobacco use Status Tobacco use date assessed 02/21/24 04/28/24 12:39 Patient Tobacco Use Status Never used Tobacco 04/28/24 12:39 Tobacco use type Cigarette 04/28/24 12:39 e-Cigarette/Vaping Use Never Used 04/28/24 12:39 PHQ-9: PHQ-9 Score PHQ-9: Total score 3 04/28/24 12:43 Depression Screening Interpretation: Positive Depression Screening Follow-up: Existing condition Thrive Assessment: Date of Thrive Assessment Date Thrive assessed 12/11/23 04/28/24 12:39 Const General: alert; No acute distress Eyes Conjunctivae: conjunctivae normal Resp Auscultation: clear to auscultation bilaterally Cardio Rate: regular rate Rhythm: regular rhythm GI Inspection: Yes normal to inspection Extrem General: Yes normal to inspection and No edema Results AMB Hemoglobin A1c AMB Hemoglobin A1c 7.4 % Last Edit by Jia Benton CMA on 04/28/24 12:59 Assessment and Plan Assessment & Plan (1) Type 2 diabetes mellitus with hyperglycemia: Comment: Dr. Dick Code(s): E11.65 - Type 2 diabetes mellitus with hyperglycemia Plan: Decrease the amount of carbohydrate intake, pasta, bread, rice and potatoes are all sugar and that is aside from all the sweet stuff, remember that fruits are good but they are Sweet also. Presently on Trulicity and metformin (2) Hyperlipidemia LDL goal <100: Comment: Statin intolerant Code(s): E78.5 - Hyperlipidemia, unspecified Plan: Avoid fried foods, chicken skin, eggs, butter margarine, pastries and meat. Be it pork or beef they have a lot of cholesterol LDL goal of less than 100 and triglyceride of less than 150 patient had muscle breakdown with the cholesterol medication atorvastatin and rosuvastatin/statins has been placed on Zetia and lovastatin. Reminded about blood work. (3) Hypothyroid: Code(s): E03.9 - Hypothyroidism, unspecified Qualifiers: Hypothyroidism type: acquired Qualified Code(s): E03.9 - Hypothyroidism, unspecified Plan: Continue with thyroid medication (4) Calcium pyrophosphate deposition disease (CPPD): Code(s): M11.20 - Other chondrocalcinosis, unspecified site Plan: Patient was advised to take anti-inflammatories (5) Knee osteoarthritis: Code(s): M17.9 - Osteoarthritis of knee, unspecified Plan: Anti-inflammatories for pain. Orders: Orders AMB Hemoglobin A1c Today Z13.9 - Encounter for screening, unspecified Referrals Orthopedics Referral M17.9 - Osteoarthritis of knee, unspecified Medications: Changed From cyclobenzaprine 5 mg PO TID PRN 20 tabs 1RF muscle spasm M54.9 - Dorsalgia, unspecified To cyclobenzaprine 5 mg PO .QHS PRN 20 tabs 1RF muscle spasm M54.9 - Dorsalgia, unspecified Refilled naproxen 500 mg PO BID 7 days PRN 14 tabs 0RF pain M17.9 - Osteoarthritis of knee, unspecified Discontinued oxycodone Partial Fill upon patient request. Discontinued Reason: Doctor's Order 5 mg PO TID 3 days PRN 9 tabs 0RF pain morphine Partial Fill upon patient request. Discontinued Reason: Doctor's Order 15 mg PO Q6H 5 days PRN 10 tabs 0RF pain Coding Level of Care Code Est Pt Level 4 (69865) Diagnoses Type 2 diabetes mellitus with hyperglycemia E11.65 Hyperlipidemia LDL goal <100 E78.5 Acquired hypothyroidism E03.9 Hypothyroidism type: acquired Calcium pyrophosphate deposition disease (CPPD) M11.20 Knee osteoarthritis M17.9
[2024-04-28 12:38] VITALS: BP 136/68; PULSE 77; O2SAT 98; BMI 21.6
== END 2024-04-28 13:07 | disposition home or self-care (01) ==
PROVIDERS: PCP Internal Medicine; Visit Provider Internal Medicine
DX: E11.65 Type 2 diabetes mellitus with hyperglycemia (principal); E78.5 Hyperlipidemia, unspecified; E03.9 Hypothyroidism, unspecified; M11.20 Other chondrocalcinosis, unspecified site; M17.9 Osteoarthritis of knee, unspecified; Z13.9 Encounter for screening, unspecified
CPT/HCPCS: 83036; 99214

== ENCOUNTER 2024-05-25 09:53 | Outpatient (AMB) | payer OTHER, SELFPAY ==
--- NOTE | 2024-05-25 09:54 | A.OFFVIS_ITS ---
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 Patient reports that she has had ongoing bilateral knee pain for many years now with no previous treatments. Right is worse than left. In the right knee her pain radiates up to the hip. She complaints of back pain as well. Increased pain with walking, laying and ambulation of stairs. 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 Patient reports that she has had ongoing bilateral knee pain for many years now with no previous treatments. Right is worse than left. In the right knee her pain radiates up to the hip. She complaints of back pain as well. Increased pain with walking, laying and ambulation of stairs. [facility] Medical History OA (osteoarthritis) of hip COVID-19 virus infection Colon cancer screening Hypoglycemia Hypoglycemia unawareness associated with type 2 diabetes mellitus Screening for osteoporosis Multinodular goiter Mammogram declined Colonoscopy refused Degenerative disc disease, cervical Chondrocalcinosis Anxiety and depression Asthma Osteoarthritis Carpal tunnel syndrome of right wrist Serum potassium elevated B12 deficiency Renal stones Type 2 diabetes mellitus with diabetic polyneuropathy Hyperlipidemia LDL goal <100 Hypothyroid Surgical History History of cataract surgery Hx of lithotripsy Hx of wisdom tooth extraction Hx of vaginal hysterectomy Hx of bilateral breast reduction surgery Family History Father Heart disease Hypertension Myocardial infarction CVD (cardiovascular disease) Mother Hypertension Type II diabetes mellitus Daughter No problems noted. Sister In good health Sister In good health Brother No problems noted. Brother No problems noted. Brother No problems noted. Social History Household Members: None Housing: Apartment Alcohol intake: never Patient Tobacco Use Status: Never used Tobacco Tobacco use type: Cigarette e-Cigarette/Vaping Use: Never Used Second Hand Smoke Exposure: No service: No Current occupational status: retired Cognitive needs: No Hearing needs: No Vision needs: Yes Physical Exam Vital Signs: BMI result Body Mass Index 21.6 Extrem Other: Minimal pain left knee. No effusion. Difficult to reproduce her primary complaint. Results Reviewed Results Reviewed: I personally reviewed relevant radiographs. Chondrocalcinosis left knee Bilateral hip osteoarthritis Assessment & Plan Assessment & Plan (1) Calcium pyrophosphate deposition disease (CPPD): Code(s): M11.20 - Other chondrocalcinosis, unspecified site Category: Medical Plan: Calcium pyrophosphate disease of the knee. This is not symptomatic but does result in occasional effusions. (2) OA (osteoarthritis) of hip: Comment: Right Code(s): M16.9 - Osteoarthritis of hip, unspecified Category: Medical Plan: Bilateral hip arthritis. Again this does not seem to be her primary complaint. She is not currently a surgical candidate (3) Back pain: Code(s): M54.9 - Dorsalgia, unspecified Category: Medical Plan: Her primary complaint appears to be back pain with question of radiculopathy. I have referred her to pain management. Orders: Referrals Pain Management Referral M47.816 - Spondylosis without myelopathy or radiculopathy, lumbar region Coding Level of Care Code New Pt Level 4 (16542) Diagnoses Calcium pyrophosphate deposition disease (CPPD) M11.20 OA (osteoarthritis) of hip M16.9 Back pain M54.9
[2024-05-25 09:55] VITALS: BMI 21.6
== END 2024-05-25 10:52 | disposition home or self-care (01) ==
PROVIDERS: PCP Internal Medicine; Visit Provider Orthopaedic Surgery
DX: M11.262 Other chondrocalcinosis, left knee (principal); M16.0 Bilateral primary osteoarthritis of hip; M54.9 Dorsalgia, unspecified
CPT/HCPCS: 99204

== ENCOUNTER → 2024-05-25 09:53 | Outpatient (BNVA) | payer OTHER, SELFPAY | PROVIDERS: PCP Internal Medicine; Visit Provider Orthopaedic Surgery | DX: M17.0 Bilateral primary osteoarthritis of knee (principal); M11.20 Other chondrocalcinosis, unspecified site; M47.816 Spondylosis without myelopathy or radiculopathy, lumbar region; M16.9 Osteoarthritis of hip, unspecified | CPT/HCPCS: 99202 ==

== ENCOUNTER 2024-06-10 09:24 | Outpatient (AMB) | payer OTHER, SELFPAY ==
[2024-06-10 10:03] VITALS: BP 151/65; PULSE 66; O2SAT 98; BMI 21.6
--- NOTE | 2024-06-10 10:03 | A.OFFVIS_ITS ---
Vital Signs 06/10/24 10:03 Height 5 ft 2 in Weight 118 lb BMI 21.6 BP 151/65 H Blood Pressure Location Rt brachial Position Sitting Pulse 66 Pulse Source Pulse Oximeter Pulse Oximetry (%) 98 Oxygen Delivery Method Room Air Intake Visit Reasons: Spondylosis without myelopathy or radiculopathy Public Service Director Required: Yes Public Service Director Name: Red #[id number] Allergies acetaminophen [Tylenol] Allergy (Unknown, Verified 06/10/24 10:04) Anaphylaxis atorvastatin [Lipitor] Allergy (Unknown, Verified 06/10/24 10:04) myalgia rosuvastatin [From Crestor] Allergy (Unknown, Verified 06/10/24 10:04) Myalgia Medication List - Last Reconciled 06/10/24 by Sumaya Johnson albuterol sulfate 90 mcg/actuation 2 inhalations inhalation Q4-6H PRN albuterol sulfate 90 mcg/actuation (Ventolin HFA) 2 puffs inhalation Q6H PRN [BED PADS Wipes 3/month Kotex 6x's a day bed pads 1 a day] blood sugar diagnostic (FreeStyle Lite Strips) twice a day blood-glucose meter (FreeStyle Lite Meter kit) As directed [cane As directed] citalopram 20 mg PO DAILY 90 days clonazepam 0.5 mg PO DAILY PRN [commode As directed] cyanocobalamin (vitamin B-12) 1,000 mcg PO DAILY cyclobenzaprine 5 mg PO .QHS PRN diclofenac sodium 1% (Arthritis Pain (diclofenac)) 4 grams topical QID dulaglutide (Trulicity) 0.75 mg (0.5 mL) subcut QWEEK ezetimibe 10 mg PO DAILY Fish Oil Concentrate (omega-3 fatty acids) 1,000 mg PO DAILY NS fluticasone propionate 50 mcg/actuation (Flonase Allergy Relief) 2 sprays intranasal DAILY folic acid 1 mg PO DAILY gabapentin 300 mg PO BEDTIME hydroxyzine HCl 10 mg PO .QHS [KOTEX As directed Wipes 3/month Kotex 6x's a day bed pads 1 a day] lancets (FreeStyle Lancets) As directed twice a day levothyroxine 75 mcg PO DAILY lidocaine 5% 1 patch topical DAILY PRN lovastatin 20 mg PO DAILY 90 days magnesium 250 mg PO DAILY meclizine 25 mg PO TID metformin ER 1,000 mg (2 x 500 mg) PO BID 90 days naproxen 500 mg PO BID PRN 7 days omega-3 fatty acids 1,000 mg PO DAILY pen needle, diabetic (BD Stephanie 2nd Gen Pen Needle) As directed once daily [shower head As directed] [WIPES Wipes 3/month Kotex 6x's a day bed pads 1 a day] HPI Comments Details: Sindy is a very pleasant 73-year-old female who presents the office today for evaluation management of her chronic lower back pain Patient states today she is not having any pain in her lower back. Reports the pain comes and goes. When she has a ?flare? it would be 100/10 May occur every 3 days, sometimes only once a week She is unable to produce the pain with any activity. This pain has been going on for approximately 3 years, previously diagnosed with arthritis. Denies any inciting injury, fall, trauma Denies radiation of the pain down either lower extremity. She is currently undergoing care of Orthopedics for bilateral knee pain. Pain today is rated as 0/10 She has tried lidocaine patches, Tylenol, Motrin all without improvement of her symptoms. Currently takes gabapentin at bedtime because it makes her too sleepy during the day. She has not attempted physical therapy, chiropractor, acupuncture, massage or injections Denies red flag symptoms including new loss of bowel, bladder or saddle anesthesia. In terms of muscle damage condition is described as tingling, pinching, cramping, crushing, dull, sore, hurting, aching Pain is negatively impacting patient's enjoyment of life, general activity, ability to care for self. 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 [facility] Medical History OA (osteoarthritis) of hip COVID-19 virus infection Colon cancer screening Hypoglycemia Hypoglycemia unawareness associated with type 2 diabetes mellitus Screening for osteoporosis Multinodular goiter Mammogram declined Colonoscopy refused Degenerative disc disease, cervical Chondrocalcinosis Anxiety and depression Asthma Osteoarthritis Carpal tunnel syndrome of right wrist Serum potassium elevated B12 deficiency Renal stones Type 2 diabetes mellitus with diabetic polyneuropathy Hyperlipidemia LDL goal <100 Hypothyroid Surgical History History of cataract surgery Hx of lithotripsy Hx of wisdom tooth extraction Hx of vaginal hysterectomy Hx of bilateral breast reduction surgery Family History Father Heart disease Hypertension Myocardial infarction CVD (cardiovascular disease) Mother Hypertension Type II diabetes mellitus Daughter No problems noted. Sister In good health Sister In good health Brother No problems noted. Brother No problems noted. Brother No problems noted. Social History Household Members: None Housing: Apartment Alcohol intake: never Patient Tobacco Use Status: Never used Tobacco Tobacco use type: Cigarette e-Cigarette/Vaping Use: Never Used Second Hand Smoke Exposure: No service: No Current occupational status: retired Cognitive needs: No Hearing needs: No Vision needs: Yes Review of Systems Const All systems reviewed & are unremarkable except as noted in HPI and below Physical Exam Vital Signs: Last Vital Signs Pulse 66 06/10/24 10:03 BP 151/65 H 06/10/24 10:03 Pulse Ox 98 06/10/24 10:03 Oxygen Delivery Method Room Air 06/10/24 10:03 BMI result Body Mass Index 21.6 General: awake, alert, oriented. Answers questions appropriately. Fully engaged in examination. Thin, frail. Skin: warm, dry, intact HEENT: Normocephalic. Hearing intact. Cardiac: External chest normal in appearance. Respiratory: No cough, audible wheezing or stridor. Abdomen: without gross distension. MS: No obvious swelling or deformities. Able to transition from sit to stand with minimal assistance Ambulates with bilaterally normal heel strike and toe off Tenderness over vertebrae and lumbar paraspinal muscles Nontender bilateral PSIS SLR negative bilaterally Facet positive Significantly decreased range of motion secondary to pain Bilateral extremity strength 4/5 Valsalva negative Neurological: Oriented to person, place, time and situation. Thought process intact. Ambulates with the use of a cane Psychiatric: Appropriate mood and affect. Good judgment and insight. Assessment & Plan Assessment & Plan (1) Lumbar spondylosis: Code(s): M47.816 - Spondylosis without myelopathy or radiculopathy, lumbar region Category: Medical Plan Sindy is a very pleasant 73-year-old female who presented to the office today for evaluation management of her chronic lower back pain History, physical exam and provocative testing consistent with lumbar spondylosis X-ray lumbar spine ordered for evaluation Order placed for PT eval and treat All questions and concerns were answered, patient follow-up after PT, sooner needed Orders: Orders XR lumbar spine 4V min Today M47.816 - Spondylosis without myelopathy or radiculopathy, lumbar region PT Evaluation and Treatment Today M47.816 - Spondylosis without myelopathy or radiculopathy, lumbar region Coding Level of Care Code New Pt Level 4 (17909) Complex EM visit Add On G2211 Diagnoses Lumbar spondylosis M47.816
== END 2024-06-10 10:38 | disposition home or self-care (01) ==
PROVIDERS: PCP Internal Medicine; Visit Provider Registered Nurse Emergency
DX: M47.816 Spondylosis without myelopathy or radiculopathy, lumbar region (principal)
CPT/HCPCS: 99204; G2211

== ENCOUNTER 2024-06-10 09:24 | Outpatient (REF) | payer OTHER, SELFPAY | END 2024-06-10 09:25 | disposition home or self-care (01) | LOC: HO.XRAY 09:24 | PROVIDERS: PCP Internal Medicine; Visit Provider Registered Nurse Emergency | DX: M47.816 Spondylosis without myelopathy or radiculopathy, lumbar region (principal); M54.50 Low back pain, unspecified; G89.29 Other chronic pain; Z79.899 Other long term (current) drug therapy | CPT/HCPCS: 72110; 99202 ==

== ENCOUNTER 2024-08-03 08:57 | Outpatient (AMB) | payer OTHER, SELFPAY ==
[2024-08-03 09:03] VITALS: BP 118/80; PULSE 65; O2SAT 99; BMI 21.3
--- NOTE | 2024-08-03 09:03 | MHC.PC.OV ---
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 Required: No Accompanied by: Self / Same As Patient Allergies acetaminophen [Tylenol] Allergy (Unknown, Verified 08/03/24 09:04) Anaphylaxis atorvastatin [Lipitor] Allergy (Unknown, Verified 08/03/24 09:04) myalgia rosuvastatin [From Crestor] Allergy (Unknown, Verified 08/03/24 09:04) Myalgia Medication List - Last Reconciled 08/03/24 by Nisha Cadet PA-C albuterol sulfate 90 mcg/actuation 2 inhalations inhalation Q4-6H PRN albuterol sulfate 90 mcg/actuation (Ventolin HFA) 2 puffs inhalation Q6H PRN [BED PADS Wipes 3/month Kotex 6x's a day bed pads 1 a day] blood sugar diagnostic (FreeStyle Lite Strips) twice a day blood-glucose meter (FreeStyle Lite Meter kit) As directed [cane As directed] citalopram 20 mg PO DAILY 90 days clonazepam 0.5 mg PO DAILY PRN [commode As directed] cyanocobalamin (vitamin B-12) 1,000 mcg PO DAILY cyclobenzaprine 5 mg PO .QHS PRN diclofenac sodium 1% (Arthritis Pain (diclofenac)) 4 grams topical QID dulaglutide (Trulicity) 0.75 mg (0.5 mL) subcut QWEEK ezetimibe 10 mg PO DAILY Fish Oil Concentrate (omega-3 fatty acids) 1,000 mg PO DAILY NS fluticasone propionate 50 mcg/actuation (Flonase Allergy Relief) 2 sprays intranasal DAILY folic acid 1 mg PO DAILY gabapentin 300 mg PO BEDTIME hydroxyzine HCl 10 mg PO .QHS [KOTEX As directed Wipes 3/month Kotex 6x's a day bed pads 1 a day] lancets (FreeStyle Lancets) As directed twice a day levothyroxine 75 mcg PO DAILY lidocaine 5% 1 patch topical DAILY PRN lovastatin 20 mg PO DAILY 90 days magnesium 250 mg PO DAILY meclizine 25 mg PO TID metformin ER 1,000 mg (2 x 500 mg) PO BID 90 days naproxen 500 mg PO BID PRN 7 days omega-3 fatty acids 1,000 mg PO DAILY pen needle, diabetic (BD Stephanie 2nd Gen Pen Needle) As directed once daily [shower head As directed] [WIPES Wipes 3/month Kotex 6x's a day bed pads 1 a day] Tobacco use date assessed: 08/03/24 Fall risk assessment: No Falls in past year Last assessed Fall Risk: 08/03/24 Dental Screening Dental Screen Date: 08/03/24 Did you have a dental visit in the last 12 months?: No Did you have a dental problem in the last 6 months where you did not have access to dental care?: No Was dental information given to patient?: No HPI 3 months DM HPI Details 73 year old female with controlled DM, hypercholesterolemia asthma hypothyroidism and major depressive disorder last seen by Dr. Moody April 2024 coming in for follow up. In review of the notes patient follows with pain management for lumbar spondylosis advised physical therapy.?Patient was seen by Orthopedics 05/29/2024 for bilateral knee pain and referred to pain management at that time. Patient states she continues to have back pain and has not yet been to physical therapy as recommended by pain management. She does mentioned she has been having increased shortness of breath and uses her inhaler 4-5 times per week and does also mentioned 2-3 times per week nighttime awakenings with shortness of breath. She does sleep on a recliner and is unsure if the nighttime awakenings are due to shortness of breath or discomfort. [facility] Medical History OA (osteoarthritis) of hip COVID-19 virus infection Colon cancer screening Hypoglycemia Hypoglycemia unawareness associated with type 2 diabetes mellitus Screening for osteoporosis Multinodular goiter Mammogram declined Colonoscopy refused Degenerative disc disease, cervical Chondrocalcinosis Anxiety and depression Asthma Osteoarthritis Carpal tunnel syndrome of right wrist Serum potassium elevated B12 deficiency Renal stones Type 2 diabetes mellitus with diabetic polyneuropathy Hyperlipidemia LDL goal <100 Hypothyroid Surgical History History of cataract surgery Hx of lithotripsy Hx of wisdom tooth extraction Hx of vaginal hysterectomy Hx of bilateral breast reduction surgery Family History Father Heart disease Hypertension Myocardial infarction CVD (cardiovascular disease) Mother Hypertension Type II diabetes mellitus Daughter No problems noted. Sister In good health Sister In good health Brother No problems noted. Brother No problems noted. Brother No problems noted. Social History Household Members: None Housing: Apartment Alcohol intake: never Patient Tobacco Use Status: Never used Tobacco Tobacco use type: Cigarette e-Cigarette/Vaping Use: Never Used Second Hand Smoke Exposure: No service: No Current occupational status: retired Cognitive needs: No Hearing needs: No Vision needs: Yes Questionnaire PHQ-9 Over the last 2 weeks, how often have you been bothered by any of the following problems? 1. Little interest or pleasure in doing things: several days 2. Feeling down, depressed, or hopeless: several days 3. Trouble falling or staying asleep, or sleeping too much: several days 4. Feeling tired or having little energy: not at all 5. Poor appetite or overeating: not at all 6. Feeling bad about yourself - or that you are a failure or have let yourself or your family down: not at all 7. Trouble concentrating on things, such as reading the newspaper or watching television: not at all 8. Moving or speaking so slowly that other people could have noticed. Or the opposite - being so fidgety or restless that you have been moving around a lot more than usual: not at all 9. Thoughts that you would be better off or of hurting yourself in some way: not at all Total score: 3 Depression Screening Interpretation: Positive Depression Screening Follow-up: Existing condition Depression Screening Done: Yes Source: Developed by Drs. Matheus Cox, Shae Armas, Linus Cheng and colleagues, with an educational roxana from [employer]. Thrive Questionnaire Date Thrive assessed: 08/03/24 I am a: Patient What is your living situation today?: I have a steady place to live Within the past 12 months, did the food you bought not last and you didn't have the money to get more?: Never true Within the past 12 months, did you worry whether your food would run out before you got money to buy more?: Never true Do you have trouble paying for medicines?: No Do you have trouble getting transportation to medical appointments?: No Do you have trouble paying your heating and electricity bill?: No Do you have trouble taking care of your child, family member or friend?: No Do you have trouble with day-to-day activities such as bathing, preparing meals, shopping, managing finances, etc.?: No Are you currently unemployed and looking for a job?: No Are you interested in more education?: No Please select the resources that you would like help with: None Currently or been in a relationship where the following occur: No concerns reported THRIVE Score: 0 AUDIT C Alcohol Use Questionnaire (AUDIT-C) 1. How often do you have a drink containing alcohol?: Never 2. How many drinks containing alcohol do you have on a typical day when you are drinking?: 1 or 2 3. How often do you have six or more drinks on one occasion?: Never Total Score: 0 DENISHA-7 AMB Questionnaire DENISHA-7 Date DENISHA - 7 assessed: 08/03/24 Feeling nervous, anxious, or on edge: 0 = Not at all Not being able to stop or control worryin = Not at all Worrying too much about different things: 0 = Not at all Trouble relaxin = Not at all Being so restless that it is hard to sit still: 0 = Not at all Becoming easily annoyed or irritable: 0 = Not at all Feeling afraid as if something awful might happen: 0 = Not at all Total DENISHA-7 score (0-4 normal; 5-9 mild; 10-14 moderate; 15-21 severe): 0 Source: Developed by Drs. Matheus Cox, Shae Armas, Linus Cheng and colleagues, with an educational roxana from [employer]. Review of Systems Const Denies body aches, Denies chills, Denies fever(s), Denies headache(s) and Denies poor appetite Eyes Reports no additional complaints ENT Denies dysphagia, Denies dizziness, Denies headache(s) and Denies odynophagia Card Denies chest pain, Denies syncope, Denies edema, Denies irregular heart rhythm, Denies lightheadedness, Reports dyspnea and Denies dyspnea on exertion Resp Denies cough, Reports dyspnea and Denies dyspnea on exertion GI Denies abdominal pain, Denies constipation, Denies dysphagia, Denies diarrhea, Denies nausea, Denies odynophagia and Denies vomiting Reports no additional complaints Musc Reports no additional complaints, Denies abnormal gait and Reports back pain Skin/Breast Reports system reviewed and no additional complaints, except as documented Neuro Denies abnormal gait, Denies dizziness, Denies syncope and Denies headache(s) Psych Reports no additional complaints Physical exam (Primary Care) Vital Signs: Last Vital Signs Pulse 65 08/03/24 09:03 BP 118/80 08/03/24 09:03 Pulse Ox 99 08/03/24 09:03 Oxygen Delivery Method Room Air 08/03/24 09:03 BMI result Body Mass Index 21.3 Tobacco/Smoking Status: Tobacco use Status Tobacco use date assessed 08/03/24 08/03/24 09:06 Patient Tobacco Use Status Never used Tobacco 08/03/24 09:06 Tobacco use type Cigarette 08/03/24 09:06 e-Cigarette/Vaping Use Never Used 08/03/24 09:06 PHQ-9: PHQ-9 Score PHQ-9: Total score 3 08/03/24 12:00 Depression Screening Interpretation: Positive Depression Screening Follow-up: Existing condition Thrive Assessment: Date of Thrive Assessment Date Thrive assessed 08/03/24 08/03/24 09:06 Currently or been in a relationship where the following occur: No concerns reported Const General: cooperative, healthy appearing, comfortable and no acute distress Orientation/consciousness: patient oriented x3 HENMT Head: Yes normocephalic Ears: hearing grossly normal bilaterally General nose exam: Normal external nose present Eyes General: appearance normal, both eyes and all related structures Conjunctivae: conjunctivae normal Neck Neck: Yes full ROM and Yes no lymphadenopathy Resp Effort & Inspection: normal respiratory effort Auscultation: clear to auscultation bilaterally, no crackles, no rales, no rhonchi and no wheezes Cardio Rate: regular rate Rhythm: regular rhythm Skin General skin exam: no rashes or lesions noted Neuro General: patient oriented x3 Gait exam (Neuro): Normal gait present Extrem General: Yes normal to inspection, Yes full ROM and No edema Psych Affect: normal affect Attitude: cooperative Insight: Good insight present (Psych) Judgement: Good judgement present (Psych) Results AMB Hemoglobin A1c AMB Hemoglobin A1c 8.4 % Last Edit by SILVESTRE Forrester on 08/03/24 09:31 Results Reviewed Results Reviewed: Laboratory Last Values Hgb A1c (Clinic) 8.4 % (4.0-6.0) H 08/03/24 09:30 Coding Level of Care Code Est Pt Level 4 (55465) Diagnoses Lumbar spondylosis M47.816 Hyperlipidemia LDL goal <100 E78.5 Acquired hypothyroidism E03.9 Hypothyroidism type: acquired Asthma J45.909 Type 2 diabetes mellitus with hyperglycemia E11.65 Assessment & Plan Assessment & Plan (1) Lumbar spondylosis: Code(s): M47.816 - Spondylosis without myelopathy or radiculopathy, lumbar region Category: Medical Plan: Currently working with pain management and referred to physical therapy. (2) Hyperlipidemia LDL goal <100: Comment: Statin intolerant Code(s): E78.5 - Hyperlipidemia, unspecified Category: Medical Plan: Avoid foods that are high in cholesterol such as red meat, fried foods, eggs and baked goods. Triglyceride goal of less than 150 and LDL goal of less than 100. Continue on Zetia 10 mg (3) Hypothyroid: Code(s): E03.9 - Hypothyroidism, unspecified Category: Medical Qualifiers: Hypothyroidism type: acquired Qualified Code(s): E03.9 - Hypothyroidism, unspecified Plan: Continue on present medication and continue to monitor the blood work (4) Asthma: Code(s): J45.909 - Unspecified asthma, uncomplicated Category: Medical Plan: Asthma not currently controlled on present medications. We will add inhaled corticosteroid to medication regimen to be taken b.i.d. and continue to use albuterol as needed. Avoid triggers such as allergies. (5) Type 2 diabetes mellitus with hyperglycemia: Comment: Dr. Dick Code(s): E11.65 - Type 2 diabetes mellitus with hyperglycemia Category: Medical Plan: Decrease the amount of carbohydrates such as pasta, bread, rice, and potatoes and limit the amount of sweets. Although fruits are generally healthy they should be eaten in moderation as they are still high in sugar. Hemoglobin A1c goal of less than 7%. Currently on metformin and Trulicity. A1c 8.4% today advised increase in Trulicity at next dose which patient agrees to. Patient states she we will typically snack foods and does not typically have protein based foods vegetables. Declines referral to air intercept controller Plan This note was constructed using voice recognition software. While every effort has been made to ensure accuracy and cutter v groove, still areas may have been included sometimes these areas may affect the content or meeting of the given symptoms. Total time spent caring for the patient today was 20 minutes. This includes time spent before the visit reviewing the chart, time spent during the visit, and time spent after the visit and documentation. Orders: Orders AMB Hemoglobin A1c Today Z13.9 - Encounter for screening, unspecified Medications: New beclomethasone dipropionate 40 mcg/actuation (Qvar RediHaler) 1 inh inhalation BID 10.6 grams 0RF
== END 2024-08-03 09:50 | disposition home or self-care (01) ==
PROVIDERS: PCP Internal Medicine
DX: E11.65 Type 2 diabetes mellitus with hyperglycemia (principal); M47.816 Spondylosis without myelopathy or radiculopathy, lumbar region; E78.5 Hyperlipidemia, unspecified; E03.9 Hypothyroidism, unspecified; J45.909 Unspecified asthma, uncomplicated

== ENCOUNTER → 2024-08-03 08:57 | Outpatient (BNVA) | payer OTHER, SELFPAY | PROVIDERS: PCP Internal Medicine | DX: M47.816 Spondylosis without myelopathy or radiculopathy, lumbar region (principal); E78.5 Hyperlipidemia, unspecified; E03.9 Hypothyroidism, unspecified; E11.65 Type 2 diabetes mellitus with hyperglycemia | CPT/HCPCS: 83036; 96127; 99212 ==

== ENCOUNTER 2024-09-20 09:25 | Emergency (ER) | payer OTHER, SELFPAY ==
[2024-09-20 09:34] VITALS: BP 149/78; PULSE 78; RESP 18; TEMP 36.4; O2SAT 99; BMI 21.2
== END 2024-09-20 15:52 | disposition left against medical advice (07) ==
PROVIDERS: Emergency Provider Emergency Medicine; PCP Internal Medicine
DX: M79.602 Pain in left arm (principal)
CPT/HCPCS: 99281

== ENCOUNTER 2024-09-28 10:08 | Outpatient (RCR) | payer OTHER, SELFPAY ==
--- NOTE | 2024-09-04 12:56 | MHC.PT.EP ---
[facility] [place] Office [place] Office [place] Office [address] Dorie Gu [address] [phone] F: [phone] F: [phone] F: [phone] F: [phone] Physical Therapy Plan of Care Date of Evaluation: 09/04/24 Date of Surgery: Diagnosis: lumbar spondylosis, bilateral low back pain (MD Dx) Assessment: Patient is a pleasant 71 y.o. Divehi speaking female who is referred to PT by REBA Reeves of [facility] with Dx of lumbar spondylosis, bilateral low back pain. Patient impairments include multiple joint pain with focus on low back, generalized weakness and deconditioning, focused weakness bilateral hips, knees, ankles with L side weaker than R, limited lumbar AROM, reduced ability to perform transfers in/out of bed, difficulty transfers out of chair and with gait/ambulation relies on furniture walking, she also reports frequent falls at home. Pt depends on her granddaughter whom is her PRECISION MECHANICAL INSTRUMENT MAKER for most ADLs including bathing, dressing, cleaning, getting out of bed and chairs, self feeding due to multiple joint pain complaints. Patient will benefit from skilled PT to address aforementioned impairments and functional limitations to meet established goals and goal to gain more independence and reduce fall risk. Frequency and Duration: The patient will be seen 1-2x/week for 4 weeks Short Term Goals: 2 weeks Patient demonstrates consistency and independence with HEP to self manage symptoms. Patient demonstrates steady gait with use of RW for stability to reduce fall risk. Process Control Manager Goals: 4 weeks Patient presents with 4-/5 strength in bilat hip flexion to improve sit to stand from chair with less difficulty and reduced need for UE support. Patient presents with 3+/5 strength in bilat glute strength to be able to perform transfers in/out of bed with supine to sit and sit to supine with Kaya. Treatment Plan: Modalities to reduce pain, spasms and effusion. Manual therapy to restore motion and function. Therapeutic exercise to improve strength and flexibility. Neuromuscular re-education for posture and balance. Therapeutic activities to return to functional activities of daily living. Electronically signed by: Georgia No, PT, DPT Please sign and return to therapist. Thank you for your referral.
--- NOTE | 2024-10-07 13:22 | MHC.PT.DC ---
[facility] [place] Office [place] Office [place] Office [address] Dorie Gu [address] [phone] F: [phone] F: [phone] F: [phone] F: [phone] Physical Therapy Discharge Report Diagnosis: lumbar spondylosis, bilateral low back pain ( Dx) Date of Surgery: Date of Evaluation: 09/04/24 Date of Discharge: 10/07/24 Treatments to Date: 8 Cancellations to Date: No Shows to Date: Discharge Status: Achieved Goals Improved Function Independent with HEP Discharge Summary: Sindy did well with physical therapy interventions. Her last session was on 09/28/24 and the assessment reads, Pt early end due to transportation. Continues to present with decreased low back pain. Able to complete exercises w/o adverse effect. Has met STGs and LTGs, no reported sxs for multiple visits. Agreeable to d/c I with HEP. Electronically signed by: Georgia No, PT, DPT Please sign and return to therapist. Thank you for your referral.
== END 2024-10-07 13:22 | disposition home or self-care (01) ==
LOC: HO.PT 10:08
PROVIDERS: PCP Internal Medicine; Visit Provider Registered Nurse Emergency
DX: M47.816 Spondylosis without myelopathy or radiculopathy, lumbar region (principal)
CPT/HCPCS: 97110; 97162; 97535

== ENCOUNTER 2024-11-06 12:37 | Outpatient (AMB) | payer OTHER, SELFPAY ==
[2024-11-06 12:42] VITALS: BP 124/70; PULSE 70; RESP 16; TEMP 36.6; O2SAT 98; BMI 21.2
--- NOTE | 2024-11-06 12:42 | MHC.PC.OV ---
Vital Signs 11/06/24 12:42 Height 5 ft 2 in Weight 116 lb BMI 21.2 BP 124/70 Respiration 16 Pulse 70 Pulse Source Pulse Oximeter Temp 97.9 F Temp Source Temporal Artery Scan Pulse Oximetry (%) 98 Oxygen Delivery Method Room Air Intake Visit Reasons: 3 month f/u City Sanitarian Required: No Accompanied by: Self / Same As Patient Allergies acetaminophen [Tylenol] Allergy (Unknown, Verified 11/06/24 12:43) Anaphylaxis atorvastatin [Lipitor] Allergy (Unknown, Verified 11/06/24 12:43) myalgia rosuvastatin [From Crestor] Allergy (Unknown, Verified 11/06/24 12:43) Myalgia lovastatin Adverse Reaction (Intermediate, Unverified 11/06/24 13:05) leg cramps Tobacco use date assessed: 11/06/24 Fall risk assessment: No Falls in past year Last assessed Fall Risk: 11/06/24 Dental Screening Dental Screen Date: 08/03/24 HPI 3 month f/u HPI Details [id number] Malik interpret [facility] Medical History (Updated 11/06/24 @ 13:11 by Jennifer Moody MD) Hyperlipidemia LDL goal <100 OA (osteoarthritis) of hip COVID-19 virus infection Colon cancer screening Hypoglycemia Hypoglycemia unawareness associated with type 2 diabetes mellitus Screening for osteoporosis Multinodular goiter Mammogram declined Colonoscopy refused Degenerative disc disease, cervical Chondrocalcinosis Anxiety and depression Asthma Osteoarthritis Carpal tunnel syndrome of right wrist Serum potassium elevated B12 deficiency Renal stones Type 2 diabetes mellitus with diabetic polyneuropathy Hypothyroid Surgical History History of cataract surgery Hx of lithotripsy Hx of wisdom tooth extraction Hx of vaginal hysterectomy Hx of bilateral breast reduction surgery Family History Father Heart disease Hypertension Myocardial infarction CVD (cardiovascular disease) Mother Hypertension Type II diabetes mellitus Daughter No problems noted. Sister In good health Sister In good health Brother No problems noted. Brother No problems noted. Brother No problems noted. Social History Household Members: None Housing: Apartment Alcohol intake: never Patient Tobacco Use Status: Never used Tobacco Tobacco use type: Cigarette e-Cigarette/Vaping Use: Never Used Second Hand Smoke Exposure: No service: No Current occupational status: retired Cognitive needs: No Hearing needs: No Vision needs: Yes Questionnaire PHQ-9 Over the last 2 weeks, how often have you been bothered by any of the following problems? 1. Little interest or pleasure in doing things: several days 2. Feeling down, depressed, or hopeless: several days 3. Trouble falling or staying asleep, or sleeping too much: several days 4. Feeling tired or having little energy: not at all 5. Poor appetite or overeating: not at all 6. Feeling bad about yourself - or that you are a failure or have let yourself or your family down: not at all 7. Trouble concentrating on things, such as reading the newspaper or watching television: not at all 8. Moving or speaking so slowly that other people could have noticed. Or the opposite - being so fidgety or restless that you have been moving around a lot more than usual: not at all 9. Thoughts that you would be better off or of hurting yourself in some way: not at all Total score: 3 Depression Screening Interpretation: Positive Depression Screening Follow-up: Existing condition Depression Screening Done: Yes Source: Developed by Drs. Matheus Cox, Shae Armas, Linus Cheng and colleagues, with an educational roxana from [employer]. Thrive Questionnaire Date Thrive assessed: 11/06/24 I am a: Patient What is your living situation today?: I have a steady place to live Within the past 12 months, did the food you bought not last and you didn't have the money to get more?: Never true Within the past 12 months, did you worry whether your food would run out before you got money to buy more?: Never true Do you have trouble paying for medicines?: No Do you have trouble getting transportation to medical appointments?: No Do you have trouble paying your heating and electricity bill?: No Do you have trouble taking care of your child, family member or friend?: No Do you have trouble with day-to-day activities such as bathing, preparing meals, shopping, managing finances, etc.?: No Are you currently unemployed and looking for a job?: No Are you interested in more education?: No Please select the resources that you would like help with: None Currently or been in a relationship where the following occur: No concerns reported THRIVE Score: 0 AUDIT C Alcohol Use Questionnaire (AUDIT-C) 1. How often do you have a drink containing alcohol?: Never 2. How many drinks containing alcohol do you have on a typical day when you are drinking?: 1 or 2 3. How often do you have six or more drinks on one occasion?: Never Total Score: 0 DENISHA-7 AMB Questionnaire DENISHA-7 Date DENISHA - 7 assessed: 11/06/24 Feeling nervous, anxious, or on edge: 1 = Several days Not being able to stop or control worryin = Several days Worrying too much about different things: 1 = Several days Trouble relaxin = Several days Being so restless that it is hard to sit still: 1 = Several days Becoming easily annoyed or irritable: 1 = Several days Feeling afraid as if something awful might happen: 1 = Several days Total DENISHA-7 score (0-4 normal; 5-9 mild; 10-14 moderate; 15-21 severe): 7 Source: Developed by Drs. Matheus Cox, Shae Armas, Linus Cheng and colleagues, with an educational roxana from [employer]. Physical exam (Primary Care) Vital Signs: Last Vital Signs Temp 97.9 F 11/06/24 12:42 Pulse 70 11/06/24 12:42 Resp 16 11/06/24 12:42 BP 124/70 11/06/24 12:42 Pulse Ox 98 11/06/24 12:42 Oxygen Delivery Method Room Air 11/06/24 12:42 BMI result Body Mass Index 21.2 Tobacco/Smoking Status: Tobacco use Status Tobacco use date assessed 11/06/24 11/06/24 12:44 Patient Tobacco Use Status Never used Tobacco 11/06/24 12:42 Tobacco use type Cigarette 11/06/24 12:42 e-Cigarette/Vaping Use Never Used 11/06/24 12:42 PHQ-9: PHQ-9 Score PHQ-9: Total score 3 11/06/24 12:48 Depression Screening Interpretation: Positive Depression Screening Follow-up: Existing condition Thrive Assessment: Date of Thrive Assessment Date Thrive assessed 11/06/24 11/06/24 12:44 Currently or been in a relationship where the following occur: No concerns reported Const General: alert; No acute distress Eyes Conjunctivae: conjunctivae normal Resp Auscultation: clear to auscultation bilaterally Cardio Rate: regular rate Rhythm: regular rhythm GI Inspection: Yes normal to inspection Extrem General: Yes normal to inspection and No edema Results AMB Hemoglobin A1c AMB Hemoglobin A1c 7.6 % Last Edit by SILVESTRE Patino on 11/06/24 12:58 Results Reviewed Results Reviewed: Laboratory Last Values Hgb A1c (Clinic) 7.6 % (4.0-6.0) H 11/06/24 12:44 Coding Level of Care Code Est Pt Level 4 (59680) Complex EM visit Add On G2211 Diagnoses Hypercholesterolemia E78.00 Acquired hypothyroidism E03.9 Hypothyroidism type: acquired Type 2 diabetes mellitus with hyperglycemia E11.65 Asthma J45.909 Lumbar spondylosis M47.816 Moderate depressive disorder F32.1 Trigger finger, left M65.30 Assessment & Plan Assessment & Plan (1) Hypercholesterolemia: Comment: STATININTOLERANT Code(s): E78.00 - Pure hypercholesterolemia, unspecified Category: Medical Plan: Avoid fried foods, chicken skin, eggs, butter margarine, pastries and meat. Be it pork or beef they have a lot of cholesterol LDL goal of less than 100 and triglyceride of less than 150 patient has been placed on lovastatin and Zetia but cannot take lovastatin. (2) Hypothyroid: Code(s): E03.9 - Hypothyroidism, unspecified Category: Medical Qualifiers: Hypothyroidism type: acquired Qualified Code(s): E03.9 - Hypothyroidism, unspecified Plan: Continue with thyroid medication patient needs blood work (3) Type 2 diabetes mellitus with hyperglycemia: Comment: Dr. Dick Code(s): E11.65 - Type 2 diabetes mellitus with hyperglycemia Category: Medical Plan: Decrease the amount of carbohydrate intake, pasta, bread, rice and potatoes are all sugar and that is aside from all the sweet stuff, remember that fruits are good but they are Sweet also. Hemoglobin A1c goal of less than 7.0 patient on metformin a 1000 mg twice a day Trulicity 0.75 once a week (4) Asthma: Code(s): J45.909 - Unspecified asthma, uncomplicated Category: Medical Plan: Continue with the albuterol inhaler as needed and has been placed on QVAR for control (5) Lumbar spondylosis: Code(s): M47.816 - Spondylosis without myelopathy or radiculopathy, lumbar region Category: Medical Plan: Keep active. Patient has been sent to pain management. Advised physical therapy (6) Moderate depressive disorder: Comment: Today's PHQ suggestive of moderate depression. Continue current regimen by PCP. Reinforced coping strategies and social support. Seek medical attention for any suicidal and/or homicidal ideations. [facility] Code(s): F32.1 - Major depressive disorder, single episode, moderate Category: Medical Plan: Continue with medication (7) Trigger finger, left: Comment: Left 3rd finger Code(s): M65.30 - Trigger finger, unspecified finger Category: Medical Plan: discussed about options for treatment from splint to orthopedic trigger injection Plan History of Present Illness The patient is a 74-year-old female presenting with a follow-up for chronic conditions management, particularly uncontrolled diabetes mellitus. Despite treatment with Metformin and Trulicity, her hemoglobin A1c remains elevated at 8.4. Her asthma is treated with an Albuterol inhaler and Qvar, while hypercholesterolemia is managed with Lovastatin. Hypothyroidism treatment specifics were not discussed in detail. Her depressive disorder was noted but not expanded upon during this visit. Musculoskeletal issues include lumbar spondylosis requiring pain management, and CPPD affecting knee joints. The patient has inconsistent engagement with preventive health measures, having declined past mammograms and refrained from recent bone density scans despite age-related risks. Notably, an elevated calcium level was documented on previous imaging, requiring continued monitoring. Health Maintenance - Declined mammogram - Cologuard negative (December 2021) - Last bone density scan in December 2016 - Target lipid goals: LDL < 100 mg/dL; Triglycerides < 150 mg/dL - Elevated calcium noted on the last imaging study in September Social History Review of Systems - Musculoskeletal: Reports low back pain, bilateral knee pain. - Neurologic: Denies new symptoms beyond what has been treated. - Cardiovascular: Denies chest pain, palpitations. - Respiratory: Denies acute exacerbations of asthma. - Endocrine: Denies acute thyroid-related symptoms. - Psychiatric: Denies new psychiatric symptoms. Physical Exam Results - Labs: Hemoglobin A1c of 8.4 (August 2023); elevated calcium level (September) - Tests: Cologuard negative (December 2021) - Diagnostics: Last bone density in December 2016 Plan Optimization of existing treatments focuses on reducing diabetes-related HbA1c levels, supported by consistent use of Metformin and Trulicity. Lipid profiles are managed with Lovastatin. Asthma management includes Albuterol and Qvar usage. Continued evaluation through lab monitoring ensures thyroid function is within therapeutic range. Musculoskeletal management of lumbar spondylosis and CPPD includes a regimen of physical therapy and specialized pain management. Patient education encourages preventive care adherence, with reminders for bone health assessments and future mammograms. Patient was informed and verbally consented to the use of an ambient scribe for clinic note documentation during this visit. Discussion Notes I discussed the current status and management of uncontrolled diabetes mellitus with the patient, stressing the importance of achieving a hemoglobin A1c below 7.0 using Metformin and Trulicity. We reviewed management plans for her asthma, with the importance of the Albuterol inhaler for acute exacerbations and Qvar for ongoing control. I emphasized adherence to her Lovastatin regimen to meet targeted LDL and triglyceride levels, considering norms for lipid management. Addressed her musculoskeletal issues, including lumbar spondylosis and CPPD, detailing the continuation of physical therapy. I encouraged engagement with preventive screenings referencing a bone density scan and mammogram, though the latter was declined previously. Discussed ongoing monitoring of elevated calcium levels as noted in her medical records. Patient Instructions - Continue Metformin 1000 mg twice a day and Trulicity 0.75 mg for diabetes management. - Use Albuterol inhaler as needed for asthma and continue with Qvar for daily control. - Adhere to Lovastatin medication regimen for cholesterol management. - Attend physical therapy sessions as scheduled for lumbar spondylosis and CPPD. - Report any significant changes in pain or respiratory symptoms promptly. - Maintain regular diabetic and thyroid monitoring, following up on lab results. - Consider scheduling future bone density assessments and revisit mammography discussions for preventive care. - Stay active and include exercise as tolerated. Orders: Orders AMB Hemoglobin A1c Today E11.42 - Type 2 diabetes mellitus with diabetic polyneuropathy, Z79.4 - long term care social worker (current) use of insulin Medications: Changed From dulaglutide (Trulicity) 0.75 mg (0.5 mL) subcut QWEEK 2 mL 2RF E11.42 - Type 2 diabetes mellitus with diabetic polyneuropathy, Z79.4 - long term care social worker (current) use of insulin To dulaglutide 1.5 mg (0.5 mL) subcut QWEEK 6.5 mL 2RF 90 days E11.42 - Type 2 diabetes mellitus with diabetic polyneuropathy, Z79.4 - senior care (current) use of insulin From gabapentin 300 mg PO BEDTIME 30 caps 6RF E11.42 - Type 2 diabetes mellitus with diabetic polyneuropathy, Z79.4 - senior care (current) use of insulin To gabapentin 300 mg PO BEDTIME 90 caps 2RF 90 days E11.42 - Type 2 diabetes mellitus with diabetic polyneuropathy, Z79.4 - long term care social worker (current) use of insulin Discontinued lovastatin Discontinued Reason: Doctor's Order 20 mg PO DAILY 90 days 90 tabs 3RF E78.5 - Hyperlipidemia, unspecified
--- OUTSIDE RECORDS SUMMARY | 2024-11-06 14:10 | XMS_ITS | Data Portability ---
Author Organization [id number] Address [address] [place] [address] Care Team Providers Care Gang Tailer Name Role Phone HIM AXEL OTHER Assessment Encounter Date Assessment Date Assessment LastModified by Organization Details LastModified Time 02/13/2024 02/13/2024 I provided real -time medical direction via phone for this encounter and was available for additional phone-based assistance as needed. I have reviewed and agree with the Assessment and Plan as documented by the Fountain Dispenser. Patient given the opportunity to ask questions. Our service contacted for an assessment of: a fall yesterday resulting in knee trauma/pain As per above, patient fell yesterday and went to the ED. She had to leave the ED before a CT of the head could be done. She received a limited evaluation of her knee which is swollen and very painful today. She did experience a LOC and had an unknown downtime after the fall. She is unsafe while ambulating currently per director adult on the scene. Impression: Trauma/fall associated with a LOC and unknown downtime. Knee injury, unsafe ambulation and gait currently. Also on numerous medications that increase her fall risk. Plan: Referred to the ED to continue w/u. Expect call made [email or web address] Not available 02/13/2024 19:20:20 Plan of Treatment Reminders Order Date Submit Date Provider Last Modified By Organization Details Last Modified Time Details Appointments None record ed. Lab None record ed. Referral None record ed. Procedures None record ed. Surgeries None record ed. Imaging None record ed. Medication Orders None record ed. Patient TargetsNo targets recorded. Patient InstructionsNo instructions recorded. Reason for Referral None Reported. Medical Equipment None Reported. Medications Name Sig Start Date Stop Date Status Note LastModified by Organization Details LastModified Time buspirone 5 mg tablet active Not Available Not Available No t Available doxycycline hyclate 100 mg capsule TAKE 1 CAPSULE BY MOUTH TWICE A DAY FOR 10 DAYS active Not Available Not Available No t Available omega-3 fatty acids 1,000 mg capsule TAKE 1 CAPSULE BY MOUTH EVERY DAY active Not Available Not Available No t Available FreeStyle Lancets 28 gauge USE DIRECTED TWICE A DAY active Not Available Not Available Not Available prednisone 20 mg tablet TAKE 2 TABLETS BY MOUTH EVERY DAY FOR 5 DAYS active Not Available Not Available No t Available clonazepam 0.5 mg tablet active Not Available Not Available Not Available cyanocobalam in (vit B-12) 1,000 mcg tablet TAKE 1 TABLET BY MOUTH EVERY DAY active Not Available Not Available No t Available levothyroxin e 75 mcg tablet TAKE 1 TABLET BY MOUTH EVERY DAY active Not Available Not Available No t Available citalopram 20 mg tablet active Not Available Not Available Not Available meclizine 25 mg tablet TAKE 1 TABLET BY MOUTH THREE TIMES A DAY active Not Available Not Available Not Available lidocaine 5 % topical patch APPLY 1 PATCH TOPICALLY DAILY NEEDED FOR PAIN LEAVE ON MOST PAINFUL AREA FOR UP TO 12 HRS active Not Available Not Available No t Available gabapentin 300 mg capsule TAKE 1 CAPSULE BY MOUTH AT BEDTIME active Not Available Not Available No t Available lovastatin 20 mg tablet TAKE 1 TABLET BY MOUTH EVERY DAY active Not Available Not Available No t Available morphine 15 mg immediate release tablet TAKE 1 TABLET BY MOUTH EVERY 6 HOURS NEEDED FOR PAIN FOR 5 DAYS active Not Available Not Available No t Available fluticasone propionate 50 mcg/actuatio n nasal spray,suspen elan INSTILL 2 SPRAY INTRANASALL Y ONCE DAILY, ADMINISTER INTO EACH NOSTRIL active Not Available Not Available No t Available metformin ER 500 mg tablet,exten ded release 24 hr TAKE 1 TABLET BY MOUTH TWICE A DAY active Not Available Not Available No t Available glipizide 5 mg tablet TAKE 1 TABLET (5 MG TOTAL) BY MOUTH IN THE MORNING AND IN THE EVENING BEFORE MEALS active Not Available Not Available No t Available naproxen 500 mg tablet TAKE 1 TABLET BY MOUTH TWICE A DAY NEEDED FOR PAIN FOR 7 DAYS active Not Available Not Available No t Available Ventolin HFA 90 mcg/actuatio n aerosol inhaler INHALE 2 PUFFS BY MOUTH EVERY 6 HOURS NEEDED FOR WHEEZING active Not Available Not Available No t Available oxycodone 5 mg tablet TAKE 1 TABLET BY MOUTH THREE TIMES A DAY NEEDED FOR PAIN FOR 3 DAYS active Not Available Not Available N ot Available ezetimibe 10 mg tablet TAKE 1 TABLET BY MOUTH EVERY DAY active Not Available Not Available No t Available cyclobenzapr ine 5 mg tablet TAKE 1 TABLET BY MOUTH THREE TIMES A DAY NEEDED FOR MUSCLE SPASM active Not Available Not Available No t Available FreeStyle Lite Strips TWICE A DAY active Not Available Not Availa ble Not Available diclofenac 1 % topical gel PLEASE SEE ATTACHED FOR DETAILED DIRECTIONS active Not Available Not Available N ot Available Trulicity 0.75 mg/0.5 mL subcutaneous pen injector INJECT 0.75 MG (0.5 ML) SUBCUTANEOU SLY WEEKLY active Not Available Not Available N ot Available Trulicity 3 mg/0.5 mL subcutaneous pen injector INJECT 3 MG (0.5 ML) SUBCUTANEOU SLY EVERY WEEK FOR 28 DAYS active Not Available Not Available No t Available Vitals Date Recorded Heart rate Oxygen saturation Oxygen saturation in Arterial blood by Pulse oximetry Respiratory rate Body temperature Systolic blood pressure Diastolic blood pressure Provider Name and Address Organization Details Last Updated DateTime 4 98 /min 96 % 96 % 20 /min 97.4 [degF] 138 mm[Hg] 62 mm[Hg] Not Available [facility] - production 4 19:13:20 Social History None recorded. Functional Status None recorded. Mental Status None recorded. Family History Nothing Reported. Medical History No medical history recorded. Gynecological HistoryNo gynecological history recorded. Obstetrics History GPAL:G 0 P 0 0 0 0 Past Encounters Encounter ID Performer Location Encounter Start Date Encounter Closed Date Diagnosis/Indication Diagnosis SNOMED-CT Code Diagnosis ICD10 Code Diagnosis Note [id number] Cira Morel MD [facility] [address] [place] [phone] [id number] 02/13/2024 19:13:15 02/13/2024 19:20:37 Accidental fall [id number] W19.XXXA Health Concerns Section Related Observation LastModified by Organization Detai ls LastModified Time None Recorded Concern Status LastModified by Organization Details LastModified Time None Recorded Advance Directives Directive None Recorded Payers Encounter Date Sequence Insurance Name Policy Number Policy Marques Covered Member ID Marques Member ID Guarantor Name 02/13/2024 1 [facility] - DOS ON OR AFTER 2022 - DUAL ELIGIBLE - GROUP HOME OPTIONS AND ONE CARE (MEDICARE REPLACEMENT/ADV ANTAGE - HMO) Sindy Campo [id number] Sindy Campo Notes Date Note Type Note Provider Name and Address Organization Details Recorded Time 02/13/2024 text/html HPI: Kay presented to [facility] ED on 02/11/24 following a fall. Indrar reported that she got up, fell to her knees and hit her head. Inrdar left the ED waiting room as the wait was too long. Kay presented to her PCP walk in hours and was not seen as they were too full . Due to language barrier even with market stall vendor, it is unknown if mbr was able to call PCP office to make follow up appointment. Indrar reports to still have pain from fall. Mbr agreed to referral for a visit. ................... ................... ................... ................... ................... ................... ................... ........ CRC Nurse Triage Notes (Romana Ortiz): Comments: CRC RN attempted to call CP, Margo Pardo, for clarification but no answer. CRC RN called member with coding compliance manager - member reports she went to the ER and did have imagining of her R leg- the doctor said there were no fractures and I'll be back to talk to you more but she never returned. Unclear about the rest of the ER visit. Reports hitting her head when she fell but did not have any imagining of her head. Has had, and continues to have, dizzy spells. The dizziness was not the cause of the fall. Denies nausea and headaches. Member has memory trouble and is a poor historian. Did not remember speaking with CP today. Also reports she is allergic to tylenol. Aware we cannot do imagining- still requesting a visit. CRC RN verified identity via name//address. Confirmed phone number. Education provided on expected response time and the member was advised to monitor reported s/s. Member in agreement to seek emergency treatment if needed Cira Morel MD [address] [facility],[address], [place], [phone], [place] - [employer]ER 02/13/2024 19:20:34 OBGyn Episode No OBEpisode recorded.
--- OUTSIDE RECORDS SUMMARY | 2024-11-06 14:10 | XMS_ITS | Clinical Summary ---
Author Organization [facility]. Address [address] [place] [address] Phone Care Team Providers Care Cv Tech Name Role Phone Unavailable Primary Care Provider Unavailabl e Allergies Active Allergy Reactions Criticality Noted Date Comments Acetaminophen Other (see comments) 08/07/2021 Atorvastatin Other (see comments) 08/07/2021 Medications simvastatin (ZOCOR) 40 MG tablet Take 1 tablet by mouth 1 (one) time each day in the evening Active metFORMIN (GLUCOPHAGE) 1000 MG tablet Take 1 tablet by mouth 2 (two) times a day Active levothyroxine (SYNTHROID, LEVOTHROID) 100 MCG tablet Take 1 tablet by mouth every morning Active Insulin Glargine, 2 Unit Dial, (Toujeo Max SoloStar) 300 UNIT/ML solution pen-injector Active gabapentin (NEURONTIN) 100 MG capsule Take 2 capsules by mouth at bed time Active ezetimibe (ZETIA) 10 MG tablet Take 1 tablet by mouth 1 (one) time each day Active Dulaglutide (Trulicity) 1.5 MG/0.5ML solution pen-injector Inject 1 pre-filled pen syringe under the skin 1 (one) time per week Active clonazePAM (KlonoPIN) 1 MG tablet Take 0.5 mg by mouth at bed time Active citalopram (CeleXA) 10 MG tablet Take 1 tablet by mouth 1 (one) time each day Active aspirin (ST OLYA) 81 MG EC tablet Take 1 tablet by mouth 1 (one) time each day Active acarbose (PRECOSE) 50 MG tablet Take 1 tablet by mouth 3 (three) times a day Active glipiZIDE (GLUCOTROL) 5 MG tablet TAKE 1 TABLET (5 MG TOTAL) BY MOUTH IN THE MORNING AND IN THE EVENING BEFORE MEALS 180 tablet 3 05/12/2024 Active Active Problems Problem Noted Date Diagnosed Date Chronic kidney disease, stage 2 (mild) 2 Stage 3a chronic kidney disease 11/02/2021 Type 2 diabetes mellitus wit h diabetic chronic kidney disease 11/02/2021 Disorder of eye due to type 2 diabetes mellitus 08/07/2021 Essential hypertension 08/07/2021 Hyperkalemia 08/07/2021 Hyperlipidemia 08/07/2021 Family History Medical History Relation Comments Heart disease Father Hypertension Father Hypertension Mother Diabetes Sibling 1 Hypertension Sibling 2 Relation Status Comments Father Mother Alive Sibling 1 Sibling 2 Social History Tobacco Use Types Packs/Day Years Used Date Smoking Tobacco: Never Alcohol Use Standard Drinks/Week Comments No 0 (1 standard drink = 0.6 oz pur e alcohol) Comments Unknown Sex and Gender Information Value Date Recorded Sex Assigned at Not on file Legal Sex Female 4:57 PM EST Gender Identity Not on file Sexual Orientation Not on file Last Filed Vital Signs Vital Sign Reading Time Taken Comments Blood Pressure 127/80 07/09/2023 3:31 PM EST Pulse 84 07/09/2023 3:31 PM EST Temperature - - Respiratory Rate - - Oxygen Saturation 99% 07/09/2023 3:31 PM EST Inhaled Oxygen Concentration - - Weight 49.4 kg (109 lb) 07/09/2023 3:31 PM EST Height 157.5 cm (5' 2 ) 08/08/2020 12:00 PM EST Body Mass Index 19.94 08/08/2020 12:00 PM EST Plan of Treatment Health Maintenance Due Date Last Done Comments Breast Cancer Screening 1950 Pneumococcal Vaccine: 65+ Years (1 of 2 - PCV) 1957 Colorectal Cancer Screening: Annual FOBT 2000 Colorectal Cancer Screening: Colonoscopy 2000 Colorectal Cancer Screening: Sigmoidoscopy 2000 Diabetes: Ophthalmology Exam 10/02/2020 Diabetes: Pedal Pulse Checked 10/02/2020 Diabetes: Sensory Foot Exam 10/02/2020 Diabetes: Visual Foot Exam 10/02/2020 Diabetes: Hemoglobin A1C 01/20/2022 022, 03/17/2020 Influenza Vaccine (#1) 2024 Hepatitis B Vaccine Aged Out No longe r eligible based on patient's age to complete this topic Procedures Procedure Name Priority Date/Time Associated Diagnosis Comments HEMOGLOBIN A1C Routine 10/23/2021 9:26 AM EST Hyperkalemia from Last 3 Months or Most Recently Relevant to Health Maintenance Results * Hemoglobin A1c (10/23/2021 9:26 AM EST) Hemoglobin A1C 6.6 % AMY Comment: ?Hemoglobin A1C Reference Range ? Adults: ??4.8 - 6.0 % ? Non diabetic: ??< 6.0 % ? Goal: ??< 7.0 % Additional Action Suggested: ??> 8.0 % Note: ??Hemoglobin A1c results are invalid for patients ? with abnormal amounts of HbF. ??Blood transfusions ? may impact the HbA1c concentration in the patient ? sample. Estimated Average Glucose 143 mg/dL AMY Comment: eAG = Estimated average glucose which is %A1C expressed as average glucose, using the formula of the J3H-Nwumcpi Average Glucose study (ADAG), Diabetes Care, Vol.31,#8, Apr. 2007 Blood (Blood, Venous) 10/23/2021 9:26 AM EST 10/23/2021 9:26 AM EST us Owen Reid MD LAB BLOOD ORDERABLES Final Re sult AMY from Last 3 Months or Most Recently Relevant to Health Maintenance Insurance [facility] ([id number]) [facility] ([id number])
== END 2024-11-06 13:25 | disposition home or self-care (01) ==
PROVIDERS: PCP Internal Medicine; Visit Provider Internal Medicine
DX: E11.65 Type 2 diabetes mellitus with hyperglycemia (principal); F32.1 Major depressive disorder, single episode, moderate; E11.42 Type 2 diabetes mellitus with diabetic polyneuropathy; Z79.4 Long term (current) use of insulin; E78.00 Pure hypercholesterolemia, unspecified; M65.332 Trigger finger, left middle finger; E03.9 Hypothyroidism, unspecified; J45.909 Unspecified asthma, uncomplicated; M47.816 Spondylosis without myelopathy or radiculopathy, lumbar region

== ENCOUNTER → 2024-11-06 12:37 | Outpatient (BNVA) | payer OTHER, SELFPAY | PROVIDERS: PCP Internal Medicine; Visit Provider Internal Medicine | DX: E78.00 Pure hypercholesterolemia, unspecified (principal); E03.9 Hypothyroidism, unspecified; E11.65 Type 2 diabetes mellitus with hyperglycemia; J45.909 Unspecified asthma, uncomplicated; M47.816 Spondylosis without myelopathy or radiculopathy, lumbar region; F32.1 Major depressive disorder, single episode, moderate; M65.30 Trigger finger, unspecified finger | CPT/HCPCS: 83036; 99212 ==

== ENCOUNTER 2024-11-23 08:21 | Outpatient (REF) | payer OTHER, SELFPAY ==
[2024-11-23 08:32] LABS: MANUAL DIFF FLAG NO
[2024-11-23 08:40] LABS: Basophils Absolute Auto 0.1 X10*3/uL (0.0-0.2); Basophils Percent Auto 0.6 % (0-2); Eosinophils Absolute Auto 0.3 X10*3/uL (0.0-0.4); Eosinophils Percent Auto 2.9 % (0-4); Hemoglobin 13.4 g/dl (12.0-16.0); Imm Gran Abs Auto 0.06 X10*3/uL (0.00-0.03); Imm Gran Pct Auto 0.6 % (0.0-0.4); Lymphocytes Absolute Auto 2.2 X10*3/uL (1.2-4.9); Mean Corpuscular HGB Conc 34.4 g/dl (31.0-35.0); Mean Corpuscular Hemoglobin 27.4 pg (27.0-33.0); Mean Corpuscular Volume 79.8 fL (80.0-98.0); Mean Platelet Volume 9.1 fL (9.4-12.3); Monocytes Absolute Auto 0.7 X10*3/uL (0.1-1.2); Neutrophils Absolute Auto 6.2 x10*3/uL (2.0-8.3); Neutrophils Percent Auto 65.9 % (45-73); Platelet Count 386 X10*3/uL (160-400); Red Blood Count 4.89 X10*6/uL (4.20-5.50); Red Cell Distribution Width 15.8 % (11.0-16.0); White Blood Count 9.4 X10*3/uL (4.8-10.8)
[2024-11-23 09:30] LABS: Alanine Aminotransferase 16 U/L (0-31); Albumin Level 4.2 g/dL (3.5-5.0); Alkaline Phosphatase 88 U/L (39-117); Anion Gap 14 (12-20); Aspartate Amino Transferase 21 U/L (5-31); Bilirubin Total 0.3 mg/dL (0.0-1.0); Blood Urea Nitrogen 22 mg/dL (9-16); Calcium 10.1 mg/dL (8.4-10.2); Carbon Dioxide 22 mmol/L (22-29); Chloride 110 mmol/L (96-108); Cholesterol 229 mg/dL (<200); Estimated Glomerular Filt Rate 42; Glucose Random 181 mg/dL (60-115); HDL Cholesterol 46 mg/dL (>40); LDL Cholesterol Calculated 147 mg/dL (<100); Potassium 5.3 mmol/L (3.3-5.1); Sodium 141 mmol/L (135-145); Triglycerides 184 mg/dL (<150)
[2024-11-23 09:39] LABS: Free T4 (Free Thyroxine) 1.08 ng/dL (0.71-1.85); Thyroid Stimulating Hormone 2.44 uIU/mL (0.32-4.0); Vitamin D 25-OH Total 31.8 ng/mL (>30)
[2024-11-23 09:42] LABS: Microalbum/Creatinine Ratio Ur 19.9 ug/mg cr (<30)
[2024-11-23 09:44] LABS: Folate 11.2 ng/mL (> or = 4.0); Vitamin B12 293 pg/mL (200-900)
== END 2024-11-23 08:22 | disposition home or self-care (01) ==
LOC: HO.LAB 08:21
PROVIDERS: PCP Internal Medicine; Visit Provider Internal Medicine
DX: E11.65 Type 2 diabetes mellitus with hyperglycemia (principal); E78.00 Pure hypercholesterolemia, unspecified
CPT/HCPCS: 36415; 80053; 80061; 82043; 82306; 82570; 82607; 82746; 84439; 84443; 85025

== ENCOUNTER 2025-02-12 09:57 | Outpatient (AMB) | payer OTHER, SELFPAY ==
--- NOTE | 2025-02-12 10:11 | A.OFFPC_ITS ---
Vital Signs 02/12/25 10:12 Height 5 ft 2 in Weight 116 lb 8 oz BMI 21.3 BP 100/62 Blood Pressure Location Lt brachial Position Sitting Pulse 72 Pulse Source Pulse Oximeter Temp 97.3 F Temp Source Temporal Artery Scan Pulse Oximetry (%) 97 Oxygen Delivery Method Room Air Intake Visit Reasons: DM Intake Note: Patient is here to follow up on DM. 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 Cash Accountant: Not Required per policy Accompanied by: Self / Same As Patient Allergies acetaminophen [Tylenol] Allergy (Unknown, Verified 02/12/25 10:12) Anaphylaxis atorvastatin [Lipitor] Allergy (Unknown, Verified 02/12/25 10:12) myalgia rosuvastatin [From Crestor] Allergy (Unknown, Verified 02/12/25 10:12) Myalgia lovastatin Adverse Reaction (Intermediate, Verified 02/12/25 10:12) leg cramps Medication List - Last Reconciled 02/12/25 by Jennifer Moody MD albuterol sulfate 90 mcg/actuation 2 inhalations inhalation Q4-6H PRN albuterol sulfate 90 mcg/actuation (Ventolin HFA) 2 puffs inhalation Q6H PRN [BED PADS Wipes 3/month Kotex 6x's a day bed pads 1 a day] blood sugar diagnostic (FreeStyle Lite Strips) twice a day blood-glucose meter (FreeStyle Lite Meter kit) As directed budesonide 180 mcg/actuation (Pulmicort Flexhaler) 2 inhalations inhalation BID [cane As directed] citalopram 20 mg PO DAILY 90 days clonazepam 0.5 mg PO DAILY PRN [commode As directed] cyanocobalamin (vitamin B-12) 1,000 mcg PO DAILY cyclobenzaprine 5 mg PO .QHS PRN dulaglutide 1.5 mg (0.5 mL) subcut QWEEK 90 days ezetimibe 10 mg PO DAILY Fish Oil Concentrate (omega-3 fatty acids) 1,000 mg PO DAILY NS fluticasone propionate 50 mcg/actuation (Flonase Allergy Relief) 2 sprays intranasal DAILY folic acid 1 mg PO DAILY gabapentin 300 mg PO BEDTIME 90 days [KOTEX As directed Wipes 3/month Kotex 6x's a day bed pads 1 a day] lancets (FreeStyle Lancets) As directed twice a day levothyroxine 75 mcg PO DAILY metformin ER 1,000 mg (2 x 500 mg) PO BID 90 days omega-3 fatty acids 1,000 mg PO DAILY pen needle, diabetic (BD Stephanie 2nd Gen Pen Needle) As directed once daily [shower head As directed] [WIPES Wipes 3/month Kotex 6x's a day bed pads 1 a day] Tobacco use date assessed: 02/12/25 Fall risk assessment: No Falls in past year Last assessed Fall Risk: 02/12/25 Dental Screening Dental Screen Date: 02/12/25 Did you have a dental visit in the last 12 months?: Yes Did you have a dental problem in the last 6 months where you did not have access to dental care?: No Was dental information given to patient?: Patient has dentist [facility] Medical History (Updated 02/12/25 @ 10:51 by Jennifer Moody MD) Colon cancer screening Hyperlipidemia LDL goal <100 OA (osteoarthritis) of hip COVID-19 virus infection Hypoglycemia Hypoglycemia unawareness associated with type 2 diabetes mellitus Screening for osteoporosis Multinodular goiter Mammogram declined Colonoscopy refused Degenerative disc disease, cervical Chondrocalcinosis Anxiety and depression Asthma Osteoarthritis Carpal tunnel syndrome of right wrist Serum potassium elevated B12 deficiency Renal stones Type 2 diabetes mellitus with diabetic polyneuropathy Hypothyroid Surgical History History of cataract surgery Hx of lithotripsy Hx of wisdom tooth extraction Hx of vaginal hysterectomy Hx of bilateral breast reduction surgery Family History Father Heart disease Hypertension Myocardial infarction CVD (cardiovascular disease) Mother Hypertension Type II diabetes mellitus Daughter No problems noted. Sister In good health Sister In good health Brother No problems noted. Brother No problems noted. Brother No problems noted. Social History Household Members: None Housing: Apartment Alcohol intake: never Patient Tobacco Use Status: Never used Tobacco Tobacco use type: Cigarette e-Cigarette/Vaping Use: Never Used Second Hand Smoke Exposure: No service: No Current occupational status: retired Cognitive needs: No Hearing needs: No Vision needs: Yes Questionnaire PHQ-9 Over the last 2 weeks, how often have you been bothered by any of the following problems? 1. Little interest or pleasure in doing things: more than half the days 2. Feeling down, depressed, or hopeless: more than half the days 3. Trouble falling or staying asleep, or sleeping too much: more than half the days 4. Feeling tired or having little energy: more than half the days 5. Poor appetite or overeating: more than half the days 6. Feeling bad about yourself - or that you are a failure or have let yourself or your family down: more than half the days 7. Trouble concentrating on things, such as reading the newspaper or watching television: more than half the days 8. Moving or speaking so slowly that other people could have noticed. Or the opposite - being so fidgety or restless that you have been moving around a lot more than usual: more than half the days 9. Thoughts that you would be better off or of hurting yourself in some way: more than half the days Total score: 18 Depression Screening Interpretation: Positive Depression Screening Done: Yes Source: Developed by Drs. Matheus Cox, Shae Armas, Linus Cheng and colleagues, with an educational roxana from [employer]. Thrive Questionnaire Date Thrive assessed: 11/06/24 I am a: Patient What is your living situation today?: I have a steady place to live Within the past 12 months, did the food you bought not last and you didn't have the money to get more?: Sometimes True Within the past 12 months, did you worry whether your food would run out before you got money to buy more?: Sometimes True Do you have trouble paying for medicines?: No Do you have trouble getting transportation to medical appointments?: Yes Do you have trouble paying your heating and electricity bill?: No Do you have trouble taking care of your child, family member or friend?: Yes Do you have trouble with day-to-day activities such as bathing, preparing meals, shopping, managing finances, etc.?: Yes Are you currently unemployed and looking for a job?: Yes Are you interested in more education?: No Please select the resources that you would like help with: None Currently or been in a relationship where the following occur: No concerns reported THRIVE Score: 3 AUDIT C Alcohol Use Questionnaire (AUDIT-C) 1. How often do you have a drink containing alcohol?: Never Total Score: 0 DENISHA-7 AMB Questionnaire DENISHA-7 Date DENISHA - 7 assessed: 02/12/25 Feeling nervous, anxious, or on edge: 1 = Several days Not being able to stop or control worryin = More than half the days Worrying too much about different things: 2 = More than half the days Trouble relaxin = More than half the days Being so restless that it is hard to sit still: 2 = More than half the days Becoming easily annoyed or irritable: 2 = More than half the days Feeling afraid as if something awful might happen: 2 = More than half the days Total DENISHA-7 score (0-4 normal; 5-9 mild; 10-14 moderate; 15-21 severe): 13 Source: Developed by Drs. Matheus Cox, Shae Armas, Linus Cheng and colleagues, with an educational roxana from [employer]. Physical exam (Primary Care) Vital Signs: Last Vital Signs Temp 97.3 F 02/12/25 10:12 Pulse 72 02/12/25 10:12 BP 100/62 02/12/25 10:12 Pulse Ox 97 02/12/25 10:12 Oxygen Delivery Method Room Air 02/12/25 10:12 BMI result Body Mass Index 21.3 Tobacco/Smoking Status: Tobacco use Status Tobacco use date assessed 02/12/25 02/12/25 10:20 Patient Tobacco Use Status Never used Tobacco 02/12/25 10:20 Tobacco use type Cigarette 02/12/25 10:20 e-Cigarette/Vaping Use Never Used 02/12/25 10:20 PHQ-9: PHQ-9 Score PHQ-9: Total score 18 02/12/25 10:50 Depression Screening Interpretation: Positive Thrive Assessment: Date of Thrive Assessment Date Thrive assessed 11/06/24 02/12/25 10:20 Currently or been in a relationship where the following occur: No concerns reported Const General: alert; No acute distress Eyes Conjunctivae: conjunctivae normal Resp Auscultation: clear to auscultation bilaterally Cardio Rate: regular rate Rhythm: regular rhythm GI Inspection: Yes normal to inspection Extrem General: Yes normal to inspection and No edema Results AMB Hemoglobin A1c 2 AMB Hemoglobin A1c 7.0 % Last Edit by SILVESTRE Corey on 02/12/25 10:26 Results Reviewed Results Reviewed: Laboratory Last Values Hgb A1c (Clinic) 7.0 % (4.0-6.0) H 02/12/25 10:11 Coding Level of Care Code Est Pt Level 4 (08943) Complex EM visit Add On G2211 Diagnoses Type 2 diabetes mellitus with hyperglycemia E11.65 Moderate depressive disorder F32.1 Asthma J45.909 Acquired hypothyroidism E03.9 Hypothyroidism type: acquired Hypercholesterolemia E78.00 Colon cancer screening Z12.11 Mammogram declined Z53.20 Assessment & Plan Assessment & Plan (1) Type 2 diabetes mellitus with hyperglycemia: Comment: Dr. Dick Code(s): E11.65 - Type 2 diabetes mellitus with hyperglycemia Category: Medical Plan: Decrease the amount of carbohydrate intake, pasta, bread, rice and potatoes are all sugar and that is aside from all the sweet stuff, remember that fruits are good but they are Sweet also. Hemoglobin A1c goal of less than 7.0 patient is on Trulicity at 1.5 mg once a week metformin a 1000 mg twice a day (2) Moderate depressive disorder: Comment: Today's PHQ suggestive of moderate depression. Continue current regimen by PCP. Reinforced coping strategies and social support. Seek medical attention for any suicidal and/or homicidal ideations. [facility] Counseling Code(s): F32.1 - Major depressive disorder, single episode, moderate Category: Medical Plan: Continue with counseling and therapy (3) Asthma: Code(s): J45.909 - Unspecified asthma, uncomplicated Category: Medical Plan: Patient is on albuterol inhaler as needed with QVAR remember to rinse mouth after using (4) Hypothyroid: Code(s): E03.9 - Hypothyroidism, unspecified Category: Medical Qualifiers: Hypothyroidism type: acquired Qualified Code(s): E03.9 - Hypo thyroidism, unspecified Plan: Continue with thyroid medication October 2024 last blood (5) Hypercholesterolemia: Comment: STATININTOLERANT Code(s): E78.00 - Pure hypercholesterolemia, unspecified Category: Medical Plan: Avoid fried foods, chicken skin, eggs, butter margarine, pastries and meat. Be it pork or beef they have a lot of cholesterol patient on Zetia and is statin intolerant. (6) Colon cancer screening: Code(s): Z12.11 - Encounter for screening for malignant neoplasm of colon Category: Medical (7) Mammogram declined: Code(s): Z53.20 - Procedure and treatment not carried out because of patient's decision for unspecified reasons Category: Medical Plan History of Present Illness The patient is a 74-year-old female presenting for a follow-up visit. The patient has a history of diabetes mellitus, with a recent hemoglobin A1c of 7.0, improved from previous values of 7.6 and 8.4. She is currently on Trulicity 1.5 mg weekly and Metformin 1000 mg twice daily. Her blood glucose was noted to be 181 mg/dL, which is above the normal fasting range. The patient also has moderate depressive disorder and is continuing with counseling and therapy. Asthma management includes the use of an albuterol inhaler as needed and Qvar, with instructions to rinse the mouth after use. She reports using Ventolin two to three times a week. The patient has hypothyroidism, with thyroid function tests reported as normal. Hypercholesterolemia remains a concern, with LDL cholesterol at 147 mg/dL despite Zetia therapy, due to statin intolerance. The patient is advised to monitor dietary intake to manage cholesterol levels. Preventative care measures include a negative Cologuard test in 2021, with plans to repeat the test. Health Maintenance - Colon cancer screening with Cologuard, negative in 2021, to be repeated - Shingles and tetanus vaccinations are up to date Social History - Reports dietary intake includes occasional high-cholesterol foods such as ice cream and cake Review of Systems - Endocrine: Reports stable thyroid function - Respiratory: Reports using Ventolin two to three times a week, denies frequent asthma exacerbations Physical Exam Results - Labs: Hemoglobin A1c improved to 7.0 from 7.6 and 8.4 - Labs: LDL cholesterol elevated at 147 mg/dL - Labs: Potassium mildly elevated - Labs: Vitamin B12 slightly low - Screening: Cologuard negative in 2021 Plan The management plan for diabetes includes maintaining the current regimen of Trulicity 1.5 mg weekly and Metformin 1000 mg twice daily, with a target hemoglobin A1c of less than 7.0. The patient is advised to continue monitoring her blood glucose levels and dietary intake to prevent hyperglycemia. For asthma, the patient is instructed to use the albuterol inhaler as needed and Qvar daily, ensuring to rinse her mouth after use to prevent oral thrush. She should monitor her symptoms and report any increase in frequency of Ventolin use. In terms of hypercholesterolemia, the patient is on Zetia due to statin intolerance and is advised to adhere to dietary modifications to manage cholesterol levels. A follow-up cholesterol test is planned in three months to assess the effectiveness of these interventions. Preventative care includes repeating the Cologuard test for colon cancer screening and ensuring vaccinations are up to date. Patient was informed and verbally consented to the use of an ambient scribe for clinic note documentation during this visit. Discussion Notes During the visit, we discussed the importance of maintaining blood glucose levels within the target range and the role of dietary modifications in managing diabetes and hypercholesterolemia. I emphasized the need for regular use of asthma medications and the importance of rinsing the mouth after using inhalers to prevent complications. We also reviewed the plan to repeat the Cologuard test for colon cancer screening and the importance of keeping vaccinations up to date. Patient Instructions - Continue taking Trulicity and Metformin as prescribed. - Monitor blood glucose levels regularly and maintain a healthy diet. - Use albuterol inhaler as needed and Qvar daily, rinsing mouth after use. - Follow dietary recommendations to manage cholesterol levels. - Return for a follow-up cholesterol test in three months. - Repeat Cologuard test as planned. - Ensure vaccinations are up to date. Orders: Orders AMB Hemoglobin A1c Today E11.42 - Type 2 diabetes mellitus with diabetic polyneuropathy, Z79.4 - halfway (current) use of insulin Referrals Cologuard Test Z12.11 - Encounter for screening for malignant neoplasm of colon Medications: New budesonide 180 mcg/actuation (Pulmicort Flexhaler) 2 inhalations inhalation BID 1 ea 12RF J45.909 - Unspecified asthma, uncomplicated buspirone 5 mg PO .QD 30 tabs 0RF J45.909 - Unspecified asthma, uncomplicated Refilled dulaglutide 1.5 mg (0.5 mL) subcut QWEEK 6.5 mL 2RF 90 days E11.42 - Type 2 diabetes mellitus with diabetic polyneuropathy, Z79.4 - halfway (current) use of insulin Discontinued beclomethasone dipropionate 40 mcg/actuation (Qvar RediHaler) Discontinued Reason: Entered in error 1 inh inhalation BID 10.6 grams 0RF
[2025-02-12 10:12] VITALS: BP 100/62; PULSE 72; TEMP 36.3; O2SAT 97; BMI 21.3
--- OUTSIDE RECORDS SUMMARY | 2025-02-12 10:41 | XMS_ITS | Data Portability ---
Author Organization [facility] Address [address] [place] [address] Care Team Providers Care Business Taxes Specialist Name Role Phone HIM AXEL OTHER Assessment Encounter Date Assessment Date Assessment LastModified by Organization Details LastModified Time 02/13/2024 02/13/2024 I provided real -time medical direction via phone for this encounter and was available for additional phone-based assistance as needed. I have reviewed and agree with the Assessment and Plan as documented by the Sole Painter. Patient given the opportunity to ask questions. [...] She is unsafe while ambulating currently per warehouse worker on the scene. Impression: Trauma/fall associated with [...] SNOMED-CT Code Diagnosis ICD10 Code Diagnosis Note [id number] Cira Morel MD Main - [facility] [address] [place] [phone] 02/13/2024 19:13:15 01/01/2025 00:13:50 Accidental fall [id number].XXXA Health Concerns Section Related Observation LastModified by Organization Detai ls LastModified Time None Recorded Concern Status LastModified by Organization Details LastModified Time None Recorded Advance Directives Directive None Recorded Payers Insurance Date Sequence Insurance Name Policy Number Policy Marques Covered Member ID Marques Member ID Guarantor Name 01/01/2025 1 [facility] - DOS ON OR AFTER 2022 - DUAL ELIGIBLE - [employer] OPTIONS AND ONE CARE (MEDICARE REPLACEMENT/ADV ANTAGE - HMO) Sindy Campo [id number] Sindy Capmo Notes Date Note Type Note Provider Name and Address Organization Details Recorded Time 02/13/2024 text/html HPI: Kay presented to [facility] ED on 02/11/24 following a fall. Mbr reported that she got up, fell to her knees and hit her head. Indrar left the ED waiting room as the wait was too long. Kay presented to her PCP walk in hours and was not seen as they were too full . Due to language barrier even with educational interpreter, it is unknown if mbr was able to call PCP office to make follow up appointment. Mbr reports to still have pain from fall. Mbr agreed to referral for a visit. ................... ................... ................... ................... ................... ................... ................... ........ CRC Nurse Triage Notes (Romana Ortiz): Comments: CRC RN attempted to call CP, Margo Pardo, for clarification but no answer. CRC RN called member with spanish medical interpreter - member reports she went to the [...] to seek emergency treatment if needed Cira oMrel MD [address] [facility], [place], [address], [place] - [employer] 02/13/2024 19:20:34 OBGyn Episode No OBEpisode recorded.
== END 2025-02-12 11:07 | disposition home or self-care (01) ==
LOC: HO.HMCH 09:58
PROVIDERS: PCP Internal Medicine; Visit Provider Internal Medicine
DX: E11.65 Type 2 diabetes mellitus with hyperglycemia (principal); F32.1 Major depressive disorder, single episode, moderate; J45.909 Unspecified asthma, uncomplicated; E03.9 Hypothyroidism, unspecified; E78.00 Pure hypercholesterolemia, unspecified; Z12.11 Encounter for screening for malignant neoplasm of colon; Z53.20 Procedure and treatment not carried out because of patient's decision for unspecified reasons; E11.42 Type 2 diabetes mellitus with diabetic polyneuropathy; Z79.4 Long term (current) use of insulin

== ENCOUNTER → 2025-02-12 09:57 | Outpatient (BNVA) | payer OTHER, SELFPAY | PROVIDERS: PCP Internal Medicine; Visit Provider Internal Medicine | DX: E11.65 Type 2 diabetes mellitus with hyperglycemia (principal); E11.42 Type 2 diabetes mellitus with diabetic polyneuropathy; F32.1 Major depressive disorder, single episode, moderate; J45.909 Unspecified asthma, uncomplicated; E03.9 Hypothyroidism, unspecified; E78.00 Pure hypercholesterolemia, unspecified; Z53.20 Procedure and treatment not carried out because of patient's decision for unspecified reasons | CPT/HCPCS: 83036; 99212 ==

== ENCOUNTER 2025-03-29 08:26 | Outpatient (REF) | payer OTHER, SELFPAY ==
--- OUTSIDE RECORDS SUMMARY | 2025-03-29 08:39 | XMS_ITS | Clinical Summary ---
Author Organization [facility] Address [address] [place] [address] Phone Care Team Providers Care Firefighter Type One Name Role Phone Unavailable Primary Care Provider [...] Comments Breast Cancer Screening 1950 Pneumococcal Vaccine: 50+ Years (1 of 2 - PCV) 1970 Colorectal Cancer Screening: Annual FOBT 2000 Colorectal Cancer Screening: Colonoscopy 2000 Colorectal Cancer Screening: Sigmoidoscopy 2000 Diabetes: Ophthalmology Exam 10/02/2020 Diabetes: Pedal Pulse Checked 10/02/2020 Diabetes: Sensory Foot Exam 10/02/2020 Diabetes: Visual Foot Exam 10/02/2020 Diabetes: Hemoglobin A1C 01/20/2022 022, 03/17/2020 Influenza Vaccine (#1) 2025 Hepatitis B Vaccine Aged Out No longe r eligible based on patient's age to complete this topic Procedures Procedure Name Priority Date/Time Associated Diagnosis Comments HEMOGLOBIN A1C Routine 10/23/2021 9:26 AM EST Hyperkalemia from Last 3 Months or Most Recently Relevant to Health Maintenance Results * Hemoglobin A1c (10/23/2021 9:26 AM EST) Hemoglobin A1C 6.6 % AMY Comment: Hemoglobin A1C Reference Range Adults: 4.8 - 6.0 % Non diabetic: < 6.0 % Goal: < 7.0 % Additional Action Suggested: > 8.0 % Note: Hemoglobin A1c results are invalid for patients with abnormal amounts of HbF. Blood transfusions may impact the HbA1c concentration in the patient sample. Estimated Average Glucose 143 mg/dL AMY Comment: eAG = Estimated average glucose which is %A1C expressed as average glucose, using the formula of the P2K-Owceben Average Glucose study (ADAG), Diabetes Care, Vol.31,#8, Apr. 2007 Blood specimen (specimen) Venous blood / Unknown 10/23/2021 9:26 AM EST 10/23/2021 9:26 AM EST us Owen Reid MD LAB BLOOD ORDERABLES Final [facility] Last 3 Months or Most Recently Relevant to Health Maintenance Insurance [facility] ([id number]) [facility] ([id number])
--- OUTSIDE RECORDS SUMMARY | 2025-03-29 08:39 | XMS_ITS | Data Portability ---
Author Organization [employer] [facility], [facility] Address [address] [place] [address] Care Team Providers Care Solar Project Manager Name Role Phone HIM AXEL OTHER Assessment Encounter Date Assessment Date Assessment LastModified by Organization Details LastModified Time 02/13/2024 02/13/2024 I provided real -time medical direction via phone for this encounter and was available for additional phone-based assistance as needed. I have reviewed and agree with the Assessment and Plan as documented by the Station Cashier. Patient given the opportunity to ask questions. [...] She is unsafe while ambulating currently per furniture fabricator on the scene. Impression: Trauma/fall associated with [...] Pulse oximetry Respiratory rate Body temperature Systolic And Diastolic Provider Name and Address Organization Details Last Updated DateTime 4 98 /min 96 % 96 % 20 /min 97.4 [degF] 138/62 mm[Hg] Not Available [facility] - production 4 [...] SNOMED-CT Code Diagnosis ICD10 Code Diagnosis Note [id number] Cira Morel MD Main - [facility] [address] [place] [phone] 02/13/2024 19:13:15 01/01/2025 00:13:50 Accidental fall [id number] Health Concerns Section Related Observation LastModified by Organization Detai ls LastModified Time None Recorded Concern Status LastModified by Organization Details LastModified Time None Recorded Advance Directives Directive None Recorded Payers Insurance Date Sequence Insurance Name Policy Number Policy Marques Covered Member ID Marques Member ID Guarantor Name 01/01/2025 1 [facility] - DOS ON OR AFTER 2022 - DUAL ELIGIBLE - RETIREMENT OPTIONS AND ONE CARE (MEDICARE REPLACEMENT/ADV ANTAGE - HMO) Sindy Campo [id number] Sindy Campo OBGyn Episode No OBEpisode recorded.
[2025-03-29 08:45] VITALS: BP 120/60; PULSE 69; RESP 16; O2SAT 98; BMI 21.2
== END 2025-03-29 08:27 | disposition home or self-care (01) ==
LOC: HO.MS 08:26
PROVIDERS: PCP Internal Medicine; Visit Provider Ophthalmology
PROC: (CPT 66821; principal; 2025-03-29 14:00)
DX: H26.492 Other secondary cataract, left eye (principal)
CPT/HCPCS: 66821

== ENCOUNTER 2025-06-09 15:29 | Outpatient (AMB) | payer OTHER, SELFPAY ==
[2025-06-09 15:35] VITALS: BP 118/62; PULSE 67; TEMP 36.3; O2SAT 98; BMI 21.3
--- NOTE | 2025-06-09 15:35 | MHC.PC.OV ---
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: Yes Christmas Tree Grader Language: Argentine Allergies acetaminophen (Tylenol) Allergy (Unknown, Verified 06/09/25 15:39) Anaphylaxis atorvastatin (Lipitor) Allergy (Unknown, Verified 06/09/25 15:39) myalgia rosuvastatin (From Crestor) Allergy (Unknown, Verified 06/09/25 15:39) Myalgia lovastatin Adverse Reaction (Intermediate, Verified 06/09/25 15:39) leg cramps Medication List - Last Reconciled 06/09/25 by Jennifer Moody MD [10-in- pillow As directed] albuterol sulfate 90 mcg/actuation 2 inhalations inhalation Q4-6H PRN albuterol sulfate 90 mcg/actuation (Ventolin HFA) 2 puffs inhalation Q6H PRN [BED PADS Wipes 3/month Kotex 6x's a day bed pads 1 a day] blood sugar diagnostic (FreeStyle Lite Strips) twice a day blood-glucose meter (FreeStyle Lite Meter kit) As directed budesonide 180 mcg/actuation (Pulmicort Flexhaler) 2 inhalations inhalation BID buspirone 5 mg PO .QD [cane As directed] citalopram 20 mg PO DAILY 90 days clonazepam 0.5 mg PO DAILY PRN [commode As directed] cyanocobalamin (vitamin B-12) 1,000 mcg PO DAILY cyclobenzaprine 5 mg PO .QHS PRN dulaglutide 1.5 mg (0.5 mL) subcut QWEEK 90 days ezetimibe 10 mg PO DAILY Fish Oil Concentrate (omega-3 fatty acids) 1,000 mg PO DAILY NS fluticasone propionate 50 mcg/actuation (Flonase Allergy Relief) 2 sprays intranasal DAILY folic acid 1 mg PO DAILY gabapentin 300 mg PO BEDTIME 90 days [Hand held shower head As directed] [KOTEX As directed Wipes 3/month Kotex 6x's a day bed pads 1 a day] lancets (FreeStyle Lancets) As directed twice a day levothyroxine 75 mcg PO DAILY lidocaine 5% 2 patches topical DAILY metformin ER 1,000 mg (2 x 500 mg) PO BID 90 days omega-3 fatty acids 1,000 mg PO DAILY pen needle, diabetic (BD Stephanie 2nd Gen Pen Needle) As directed once daily [Rollator walker As directed] [shower head As directed] walker (Ultra-Light Rollator misc) As directed rollator with swivel wheels [WIPES Wipes 3/month Kotex 6x's a day bed pads 1 a day] Tobacco use date assessed: 06/09/25 Fall risk assessment: 2 + Falls in past year Last assessed Fall Risk: 06/09/25 Dental Screening Dental Screen Date: 06/09/25 Did you have a dental visit in the last 12 months?: Yes Did you have a dental problem in the last 6 months where you did not have access to dental care?: No Was dental information given to patient?: Patient has dentist [facility] Medical History Colon cancer screening Hyperlipidemia LDL goal <100 OA (osteoarthritis) of hip COVID-19 virus infection Hypoglycemia Hypoglycemia unawareness associated with type 2 diabetes mellitus Screening for osteoporosis Multinodular goiter Mammogram declined Colonoscopy refused Degenerative disc disease, cervical Chondrocalcinosis Anxiety and depression Asthma Osteoarthritis Carpal tunnel syndrome of right wrist Serum potassium elevated B12 deficiency Renal stones Type 2 diabetes mellitus with diabetic polyneuropathy Hypothyroid Surgical History History of cataract surgery Hx of lithotripsy Hx of wisdom tooth extraction Hx of vaginal hysterectomy Hx of bilateral breast reduction surgery Family History Father Heart disease Hypertension Myocardial infarction CVD (cardiovascular disease) Mother Hypertension Type II diabetes mellitus Daughter No problems noted. Sister In good health Sister In good health Brother No problems noted. Brother No problems noted. Brother No problems noted. Social History Household Members: None Housing: Apartment Alcohol intake: never Patient Tobacco Use Status: Never used Tobacco Tobacco use type: Cigarette e-Cigarette/Vaping Use: Never Used Second Hand Smoke Exposure: No service: No Current occupational status: retired Cognitive needs: No Hearing needs: No Vision needs: Yes Questionnaire PHQ-9 Over the last 2 weeks, how often have you been bothered by any of the following problems? 1. Little interest or pleasure in doing things: more than half the days 2. Feeling down, depressed, or hopeless: more than half the days 3. Trouble falling or staying asleep, or sleeping too much: more than half the days 4. Feeling tired or having little energy: more than half the days 5. Poor appetite or overeating: more than half the days 6. Feeling bad about yourself - or that you are a failure or have let yourself or your family down: more than half the days 7. Trouble concentrating on things, such as reading the newspaper or watching television: more than half the days 8. Moving or speaking so slowly that other people could have noticed. Or the opposite - being so fidgety or restless that you have been moving around a lot more than usual: more than half the days 9. Thoughts that you would be better off or of hurting yourself in some way: more than half the days Total score: 18 Depression Screening Interpretation: Positive Depression Screening Done: Yes Source: Developed by Drs. Matheus Cox, Shae Armas, Linus Cheng and colleagues, with an educational roxana from [employer]. Thrive Questionnaire Date Thrive assessed: 02/12/25 I am a: Patient What is your living situation today?: I have a steady place to live Within the past 12 months, did the food you bought not last and you didn't have the money to get more?: Sometimes True Within the past 12 months, did you worry whether your food would run out before you got money to buy more?: Sometimes True Do you have trouble paying for medicines?: No Do you have trouble getting transportation to medical appointments?: Yes Do you have trouble paying your heating and electricity bill?: No Do you have trouble taking care of your child, family member or friend?: Yes Do you have trouble with day-to-day activities such as bathing, preparing meals, shopping, managing finances, etc.?: Yes Are you currently unemployed and looking for a job?: Yes Are you interested in more education?: No Please select the resources that you would like help with: None Currently or been in a relationship where the following occur: No concerns reported THRIVE Score: 3 AUDIT C Alcohol Use Questionnaire (AUDIT-C) 1. How often do you have a drink containing alcohol?: Never 3. How often do you have six or more drinks on one occasion?: Never Total Score: 0 DENISHA-7 AMB Questionnaire DENISHA-7 Date DENISHA - 7 assessed: 02/12/25 Feeling nervous, anxious, or on edge: 1 = Several days Not being able to stop or control worryin = More than half the days Worrying too much about different things: 2 = More than half the days Trouble relaxin = More than half the days Being so restless that it is hard to sit still: 2 = More than half the days Becoming easily annoyed or irritable: 2 = More than half the days Feeling afraid as if something awful might happen: 2 = More than half the days Total DENISHA-7 score (0-4 normal; 5-9 mild; 10-14 moderate; 15-21 severe): 13 Source: Developed by Drs. Matheus Cox, Shae Armas, Linus Cheng and colleagues, with an educational roxana from [employer]. Physical exam (Primary Care) Vital Signs: Last Vital Signs Temp 97.3 F 06/09/25 15:35 Pulse 67 06/09/25 15:35 BP 118/62 06/09/25 15:35 Pulse Ox 98 06/09/25 15:35 Oxygen Delivery Method Room Air 06/09/25 15:35 BMI result Body Mass Index 21.3 Tobacco/Smoking Status: Tobacco use Status Tobacco use date assessed 06/09/25 06/09/25 15:41 Patient Tobacco Use Status Never used Tobacco 06/09/25 15:41 Tobacco use type Cigarette 06/09/25 15:41 e-Cigarette/Vaping Use Never Used 06/09/25 15:41 PHQ-9: PHQ-9 Score PHQ-9: Total score 18 06/09/25 15:41 Depression Screening Interpretation: Positive Thrive Assessment: Date of Thrive Assessment Date Thrive assessed 02/12/25 06/09/25 15:41 Currently or been in a relationship where the following occur: No concerns reported Const General: alert; No acute distress Eyes Conjunctivae: conjunctivae normal Resp Auscultation: clear to auscultation bilaterally Cardio Rate: regular rate Rhythm: regular rhythm GI Inspection: Yes normal to inspection Extrem General: Yes normal to inspection and No edema Results AMB Hemoglobin A1c AMB Hemoglobin A1c 7.1 % Last Edit by Michelle Penaloza CMA on 06/09/25 15:44 Results Reviewed Results Reviewed: Laboratory Last Values Hgb A1c (Clinic) 7.1 % (4.0-6.0) H 06/09/25 15:42 Coding Level of Care Code Est Pt Level 4 (36157) Complex EM visit Add On G2211 Diagnoses Type 2 diabetes mellitus with hyperglycemia E11.65 Hypercholesterolemia E78.00 Moderate depressive disorder F32.1 Acquired hypothyroidism E03.9 Hypothyroidism type: acquired Asthma J45.909 Assessment & Plan Assessment & Plan (1) Type 2 diabetes mellitus with hyperglycemia: Comment: Dr. Dick Code(s): E11.65 - Type 2 diabetes mellitus with hyperglycemia Category: Medical Plan: Decrease the amount of carbohydrate intake, pasta, bread, rice and potatoes are all sugar and that is aside from all the sweet stuff, remember that fruits are good but they are Sweet also. Hemoglobin A1c goal of less than 7.0. Patient is on Trulicity at 1.5 mg once a week metformin a 1000 mg twice a day (2) Hypercholesterolemia: Comment: STATININTOLERANT Code(s): E78.00 - Pure hypercholesterolemia, unspecified Category: Medical Plan: Avoid fried foods, chicken skin, eggs, butter margarine, pastries and meat. Be it pork or beef they have a lot of cholesterol LDL goal lesser all of less than 100 and triglyceride of less than 150. Patient is not able to take statins and can only take Zetia 10 mg once a day (3) Moderate depressive disorder: Comment: Today's PHQ suggestive of moderate depression. Continue current regimen by PCP. Reinforced coping strategies and social support. Seek medical attention for any suicidal and/or homicidal ideations. [facility] Code(s): F32.1 - Major depressive disorder, single episode, moderate Category: Medical Plan: Continue with present medication (4) Hypothyroid: Code(s): E03.9 - Hypothyroidism, unspecified Category: Medical Qualifiers: Hypothyroidism type: acquired Qualified Code(s): E03.9 - Hypothyroidism, unspecified Plan: Continue with thyroid medication (5) Asthma: Code(s): J45.909 - Unspecified asthma, uncomplicated Category: Medical Plan: On albuterol as needed Plan History of Present Illness The patient is a 74-year-old female presenting for a follow-up visit for chronic condition management. The patient has a history of diabetes mellitus, with a recent hemoglobin A1c of 7.1, indicating suboptimal control. She is currently on Trulicity and metformin for management, with a goal to reduce her A1c below 7.0. Dietary habits include consumption of bananas and Jell-O, which may contribute to elevated glucose levels. The patient also has a history of hypercholesterolemia, with an LDL cholesterol level of 147 mg/dL, which is above the target of less than 100 mg/dL. She is statin intolerant and currently taking Zetia for cholesterol management. Dietary intake includes foods high in cholesterol, such as meats and butter. The patient has a history of asthma, using albuterol as needed, and has been advised to use Pulmicort daily. She reports using albuterol two to three times a week, which may indicate suboptimal asthma control. The patient is being followed by ophthalmology, with no evidence of retinopathy noted in the last visit. She has a history of depression, managed with citalopram, clonazepam, and buspirone, and is currently seeing a psychiatrist for counseling. The patient has hypothyroidism, with normal thyroid function tests, and continues on thyroid medication. She has osteoarthritis, particularly affecting the knees, and obesity is noted as a concern. Health Maintenance - Follow-up with ophthalmology, no retinopathy noted - Vaccinations: Flu shot, COVID-19 vaccine, shingles, tetanus, pneumonia Social History - Nutritional intake includes bananas and Jell-O, which may impact glucose levels. Review of Systems - Respiratory: Reports using albuterol two to three times a week, denies frequent dyspnea. - Endocrine: Reports stable thyroid function, denies symptoms of hypothyroidism. - Psychiatric: Reports ongoing depression, managed with medication and counseling. Physical Exam Results - Labs: Hemoglobin A1c 7.1, LDL cholesterol 147 mg/dL, normal thyroid function, low B12, normal renal function, no proteinuria. - Imaging: No retinopathy noted in ophthalmology follow-up. Plan Patient was informed and verbally consented to the use of an ambient scribe for clinic note documentation during this visit. 1. Diabetes Mellitus The patient's diabetes mellitus is currently managed with Trulicity and metformin, with a goal to reduce hemoglobin A1c below 7.0. Dietary modifications are recommended to reduce sugar intake, particularly avoiding Jell-O and monitoring banana consumption. The dose of Trulicity is to be increased to improve glycemic control. 2. Hypercholesterolemia The patient is statin intolerant and currently on Zetia for cholesterol management. Dietary modifications are advised to reduce cholesterol intake, focusing on reducing consumption of meats and butter. Consideration of an injectable cholesterol medication, pending insurance approval, to further manage cholesterol levels. 3. Asthma The patient uses albuterol as needed and has been advised to use Pulmicort daily to improve asthma control. Monitoring of inhaler use is recommended to assess asthma control and adjust treatment as necessary. 4. Depression The patient's depression is managed with citalopram, clonazepam, and buspirone, with ongoing psychiatric counseling. 5. Hypothyroidism The patient continues on thyroid medication with normal thyroid function tests. 6. Osteoarthritis The patient has osteoarthritis, particularly affecting the knees, and obesity is noted as a concern. Discussion Notes During the visit, we discussed the management of diabetes mellitus, emphasizing the importance of dietary modifications to reduce sugar intake and the plan to increase the dose of Trulicity to improve glycemic control. For hypercholesterolemia, we reviewed the patient's intolerance to statins and the current use of Zetia, with consideration of an injectable medication pending insurance approval. Asthma management was addressed, highlighting the need for daily use of Pulmicort and monitoring inhaler use. We also discussed the ongoing management of depression with medication and counseling, and the continuation of thyroid medication for hypothyroidism. Patient Instructions - Monitor blood sugar levels regularly and aim to reduce sugar intake, particularly avoiding Jell-O and limiting banana consumption. - Use Pulmicort inhaler daily and albuterol as needed, and bring inhalers to the next visit for review. - Follow dietary recommendations to reduce cholesterol intake, focusing on reducing consumption of meats and butter. - Continue current medications for depression and hypothyroidism, and attend psychiatric counseling sessions. - Schedule follow-up appointments as advised and ensure vaccinations are up to date. Orders: Orders Comprehensive Met. Panel 3 Months E78.00 - Pure hypercholesterolemia, unspecified Hemoglobin A1c 3 Months E78.00 - Pure hypercholesterolemia, unspecified AMB Hemoglobin A1c Today Z13.9 - Encounter for screening, unspecified Lipid Panel 3 Months E78.00 - Pure hypercholesterolemia, unspecified Medications: New evolocumab (Repatha SureClick) 140 mg subcut Q2W 2 mL 3RF E78.00 - Pure hypercholesterolemia, unspecified Changed From dulaglutide 1.5 mg (0.5 mL) subcut QWEEK 90 days 6.5 mL 2RF E11.42 - Type 2 diabetes mellitus with diabetic polyneuropathy, Z79.4 - terminal carman (current) use of insulin To dulaglutide 3 mg (0.5 mL) subcut QWEEK 6.5 mL 2RF 90 days E11.42 - Type 2 diabetes mellitus with diabetic polyneuropathy, Z79.4 - retirement (current) use of insulin
== END 2025-06-09 16:43 | disposition home or self-care (01) ==
LOC: HO.HMCH 15:30
PROVIDERS: PCP Internal Medicine; Visit Provider Internal Medicine
DX: E11.65 Type 2 diabetes mellitus with hyperglycemia (principal); E78.00 Pure hypercholesterolemia, unspecified; F32.1 Major depressive disorder, single episode, moderate; E03.9 Hypothyroidism, unspecified; J45.909 Unspecified asthma, uncomplicated; Z13.9 Encounter for screening, unspecified

== ENCOUNTER → 2025-06-09 15:29 | Outpatient (BNVA) | payer OTHER, SELFPAY | PROVIDERS: PCP Internal Medicine; Visit Provider Internal Medicine | DX: E11.65 Type 2 diabetes mellitus with hyperglycemia (principal); E11.42 Type 2 diabetes mellitus with diabetic polyneuropathy; E78.00 Pure hypercholesterolemia, unspecified; F32.1 Major depressive disorder, single episode, moderate; E03.9 Hypothyroidism, unspecified; J45.909 Unspecified asthma, uncomplicated; F32.A Depression, unspecified; M17.0 Bilateral primary osteoarthritis of knee; Z79.899 Other long term (current) drug therapy | CPT/HCPCS: 83036; 96127; 99212 ==